=== PATIENT | male | born 1945 | race Caucasian/White ===

== ENCOUNTER 2019-09-19 09:49 | Observation (INO) | payer OTHER, SELFPAY ==
[2019-09-19] VITALS (15 sets, daily range): BP systolic 118–163; BP diastolic 69–100; PULSE 84–118; RESP 17–28; TEMP 36.6–37; O2SAT 86–94; BMI 28.0; BMI 27.3
--- NOTE | 2019-09-19 10:12 | EKG12_ITS ---
Test Reason : Blood Pressure : / mmHG Vent. Rate : 097 BPM Atrial Rate : 097 BPM P-R Int : 136 ms QRS Dur : 100 ms QT Int : 356 ms P-R-T Axes : 078 055 062 degrees QTc Int : 452 ms Normal sinus rhythm Incomplete right bundle branch block Borderline ECG Confirmed by JONH UREÑA, DOREEN ([id number]), purchase request editor CAROLYN POSEY ([id number]) on 09/22/2019 9:19:35 AM Referred By: [place] Confirmed By:DOREEN BORJA MD
--- NOTE | 2019-09-19 10:12 | RAD_ITS ---
STUDY: X-RAY CHEST REASON FOR EXAM: Male, 74 years old. increase SOB x several days, COPD -- dx with bronchitis, finished steroids last week TECHNIQUE: Single PA view of the chest. COMPARISON: 14 May 2013. FINDINGS: COPD related changes flattening the diaphragms with chronic interstitial markings along the lung bases. No evidence of focal airspace disease is evident. There is no demonstrated pleural abnormality. Normal size heart. Normal mediastinum and iesha. Normal visualized pulmonary arteries. Normal visualized aortic arch and descending thoracic aorta. Normal visualized thoracic spine. Normal visualized ribs, clavicles, and shoulders. There is no demonstrated abnormality of the visualized soft tissue structures of the upper abdomen. RAD/Chest 1 View (Portable) IMPRESSION: COPD related changes of chronic basilar interstitial markings. No distinct focal airspace disease is evident. Electronically Signed: Flip Hansen DO at 11:24 EDT , Service support ,
--- NOTE | 2019-09-19 10:18 | ED.DCSUM_ITS ---
- ER Visit Summary Date of Service: 09/19/19 Chief Complaint: Shortness of breath History of Present Illness: The patient is a 74 M who presents with shortness of breath that is been getting worse over the past 3 days. Patient states his breathing is worse with any exertion. Patient states that improves with rest and with an albuterol inhaler. Patient states he is having a cough with occasional clear sputum. Patient admits to some tightness in his chest. Patient states this is over the left side of his chest. Patient states he recently completed a course of doxycycline and prednisone which improved his symptoms but his symptoms have gotten worse since he finished the medications. Patient denies any fevers or chills. Patient denies any rhinorrhea or sore throat. Physical Examination: Vital signs are stable except for a tachycardia of 118 and a tachypnea of 28. Pulse oximeter was 86% on room air. Patient is afebrile. Patient is in no acute distress. Oral mucosa is pink and moist. Oropharynx is clear. Neck is supple. Trachea is midline. There is no JVD. Heart was regular and tachycardic. Lungs showed expiratory wheezing. There is good respiratory effort. There are no retractions. Abdomen is soft. Bowel sounds are normal. There is no tenderness. Extremities are intact. There is no calf tenderness or edema. Cranial nerves II through XII are intact. There are no focal motor or sensory deficits. Test Results: EKG showed normal sinus rhythm with a rate of 97. There are no acute ST or T wave changes. Portable chest x-ray shows COPD changes with chronic bibasilar markings. There is no acute cardiopulmonary process. CBC and comprehensive metabolic profile were normal. Troponin was normal. Lactate was normal. RSV and influenza swabs were obtained and were negative. Emergency Department Course and Treatment: Patient was placed on oxygen. Patient was given albuterol MDI. Patient was feeling better on reevaluation. Patient was given a dose of prednisone here. This was discussed with the hospitalist. Patient will be admitted to the hospital. Patient understood and was agreeable with the plan. All questions were answered. Disposition: Admit to hospital Impression: COPD exacerbation This note was generated with [employer] dictation software. It may contain incorrect words, spelling, and punctuation that were not noted in review of the chart prior to signing ED Disposition - Plan for ED Patient: Referrals: Finn Hahn MD [Primary Care Provider] -
[2019-09-19 10:27] LABS: Absolute Lymphocyte Count 2.15 X10^3/uL (0.83-4.51); Absolute Neutrophil Count 4.8 X10^3/uL (2.0-7.7); Basophil# 0.08 X10^3/uL; Basophil% 0.9 % (0-1); Eosinophil# 1.13 X10^3/uL; Eosinophils% 12.8 % (0-5); Hematocrit 49.3 % (40-54); Hemoglobin 16.2 g/dL (13.0-16.5); Lymphocyte # 2.15 X10^3/ul (4.0); Lymphocyte % 24.4 % (19-41); Mean Corp Hgb Conc 32.9 g/dL (32-36); Mean Corpuscular Hgb 31.2 pg (27.0-32.0); Mean Corpuscular Volume 94.8 fL (80-94); Mean Platelet Vol. 10.5 fl (6.2-12.0); Monocyte# 0.63 X10^3/uL; Monocyte% 7.1 % (0-10); NRBC Flagged by Analyzer 0 % (0-5); Neutrophil # 4.81 X10^3/uL (2.7-7.7); Neutrophil % 54.6 % (47-70); Platelet Count 197 K/mm3 (150-450); RBC Distribution Width CV 13.5 % (11.6-14.6); White Blood Count 8.8 K/mm3 (4.4-11.0)
[2019-09-19 10:48] LABS: ALB/GLOB Ratio 1.1 RATIO (0.9-2.4); AST(SGOT) 12 U/L (15-37); Alanine Aminotransfer ALT/SGPT 20 U/L (16-61); Albumin, Serum 3.9 g/dL (3.2-5.0); Alkaline Phosphatase 69 U/L (45-117); Anion Gap 5 (5-15); BUN 16 mg/dL (7-18); BUN/Creat Ratio 17.2 RATIO (10-20); Chloride 112 mmol/L (98-107); Creatinine, Serum 0.93 mg/dL (0.70-1.30); EST Glomerular Filtration Rate 85 mL/min (>60); Est Glom Filt Rate - Afr Amer 103 mL/min (>60); Estimated Creatinine Clearance 70.74 ml/min; Globulin 3.4 g/dL (2.2-4.2); Glucose 107 mg/dL (74-106); Potassium 3.8 mmol/L (3.5-5.1); Protein, Total 7.3 g/dL (6.4-8.2); Sodium Level 145 mmol/L (136-145)
[2019-09-19 11:03] LABS: Lactic Acid 1.1 mmol/L (0.4-1.9)
--- NOTE | 2019-09-19 11:42 | NURSING ---
DR MA FOR DR LOVELACE
--- NOTE | 2019-09-19 11:59 | NURSING ---
PCU OBS [facility] COPD EXAC
[2019-09-19] MEDS: predniSONE 20 MG Tablet 60 MG PO (12:02)
--- NOTE | 2019-09-19 13:02 | HP.PCM_ITS ---
Problem List (1) COPD (chronic obstructive pulmonary disease) Status: Chronic (2) BPH (benign prostatic hyperplasia) Status: Chronic (3) Hyperlipidemia Status: Chronic History of Present Illness Date of Admission: 09/19/19 Chief Complaint: Shortness of breath, weakness. The patient is a 74 year old M who presents to the emergency room due to shortness of breath and weakness. Patient states a few weeks ago him and his both had upper respiratory symptoms. He was treated with doxycycline and prednisone with improvement at that time. Patient then reports his symptoms cam e back on Saturday with shortness of breath, wheezing, productive cough with clear sputum. He denies fever, body aches. Patient states he was diagnosed with COPD by his primary care provider. He previously smoked for approximately 50 years. He has not had PFTs. Patient states he wears as needed oxygen at home for migraines. He has a past medical history of presumed COPD, hyperlipidemia, BPH, history of migraines, history of tobacco use, recent kidney stones with lithotripsy. Past Medical History Past Medical History (Chronic Problems): Chronic Problems COPD (chronic obstructive pulmonary disease) (Chronic) BPH (benign prostatic hyperplasia) (Chronic) Hyperlipidemia (Chronic) Allergies No Known Allergies Allergy (Verified 09/19/19 09:53) Home Medications: Ambulatory Orders Medication Instructions Recorded Albuterol Aerosols [Ventolin 2.5 mg INHALATION Q4H PRN PRN 09/19/19 Aerosols] Albuterol IH (ProAir) [Proair Hfa 2 puff INHALATION Q4H PRN PRN 09/19/19 (SP)Vent Pts] Atorvastatin Calcium [Lipitor] 40 mg PO QHS 09/19/19 Tamsulosin HCl 1 cap PO BID 09/19/19 Surgical History: - - Right total knee replacement, tonsillectomy, lipoma removal stomach, left shoulder surgery. Psychiatric History: No pertinent psych hx Lives: Spouse/ Significant Other Smoking Status: Former smoker - 14-gksx-oscc smoking history Alcohol: None Drugs: None - *Family History Maternal History Items: Heart Disease Paternal History Items: Heart Disease Review of Systems Constitutional: Denies: Chills, Fever, Weight Change HEENT: Denies: Head Aches, Sinus Congestion, Sinus Drainage Cardiovascular: Denies: Chest Pain, Palpitations Respiratory: Reports: Cough, Shortness of Breath, Wheezing Gastrointestinal: Denies: Abdominal Pain, Nausea, Vomiting Genitourinary: Denies: Dysuria Musculoskeletal: Denies: Joint Pain, Joint Tenderness Skin: Denies: Rash, Wounds Neurological: Denies: Numbness, Tingling, Focal weakness Psychiatric: Denies: Anxiety, Depression, Homicidal Ideations, Suicidal Ideations Hematologic/ Lymphatic: Denies: Easy Bruising, Easy Bleeding VTE Information - Inpt Only VTE Present on Admission: No VTE Mechan Device Prophylaxis: None VTE Pharm Prophylaxis ordered?: Yes - Physical Exam Vitals/I&O's: Vital Signs Temp Pulse Resp BP Pulse Ox 97.8 F 98 18 156/86 H 94 09/19/19 12:40 09/19/19 12:40 09/19/19 12:40 09/19/19 12:40 09/19/19 12:40 Oxygen Flow Rate (L/min) 2 Oxygen Delivery Method Nasal Cannula Weight: 184 lb 11.958 oz Body Mass Index (BMI) 27.3 General: Alert, Oriented x3, Cooperative HEENT: Atraumatic, PERRLA, EOMI, Normocephalic Oral: Dry Mucosa Neck: Supple, No JVD, Negative Carotid Bruits Lungs: Diminished, Wheezes Cardiovascular: Regular rate, Regular Rhythm, Normal S1, Normal S2, No murmurs Abdomen: Bowel Sounds Present, Soft, Non Tender, Non-Distended Extremities: No clubbing, No cyanosis, No edema, Capillary Refill Less than 3 Seconds Skin: No rashes, No breakdown Musculoskeletal: No Tenderness to Palpation of Joints or Extremities Neurological: Cranial nerves II-XII grossly intact, Neuro grossly intact Psych/Mental Status: Normal Affect, Appropriate Microbiology Past 72 Hours 09/19/19 10:25 Nasal Secretion Rapid RSV (DFA) - Final 09/19/19 10:25 Mucosa - Nose Influenza Types A,B Direct FA (ABHIJEET) - Final Laboratory Results 09/19/19 10:15: WBC 8.8, RBC 5.20, Hgb 16.2, Hct 49.3, MCV 94.8 H, MCH 31.2, MCHC 32.9, RDW Std Deviation 47.0 H, RDW Coeff of Ayala 13.5, Plt Count 197, MPV 10.5, Immature Gran % (Auto) 0.200, Neut % (Auto) 54.6, Lymph % (Auto) 24.4, [place] % (Auto) 7.1, Eos % (Auto) 12.8 H, Baso % (Auto) 0.9, Absolute Neuts (auto) 4.8, Absolute Lymphs (auto) 2.15, Nucleated RBC % 0 09/19/19 10:15: Sodium 145, Potassium 3.8, Chloride 112 H, Carbon Dioxide 28.0, Anion Gap 5, BUN 16, Creatinine 0.93, Estim Creat Clear Calc 70.74, Est GFR (MDRD) Af Amer 103, Est GFR (MDRD) Non-Af 85, BUN/Creatinine Ratio 17.2, Glucose 107 H, Calcium 9.0, Total Bilirubin 0.70, AST 12 L, ALT 20, Alkaline Phosphatase 69, Troponin I < 0.015, Total Protein 7.3, Albumin 3.9, Globulin 3.4, Albumin/Globulin Ratio 1.1 09/19/19 10:15: Lactic Acid 1.1 Current Medications Acetaminophen (Tylenol) 650 mg PO Q6H PRN PRN PRN Reason: Pain Score 1-10/Temp > 100.7 F Albuterol Sulfate (Ventolin Aerosols) 2.5 mg INHALATION Q2H PRN PRN PRN Reason: DYSPNEA Albuterol/Ipratropium (Duoneb) 3 ml INHALATION Q6H.RT [facility] Azithromycin (Zithromax) 500 mg PO Q24 [facility] Cyclobenzaprine HCl (Flexeril) 10 mg PO QHS [facility] Divalproex Sodium (Depakote Er) 500 mg PO DAILY [facility] Guaifenesin (Robitussin Dm) 10 ml PO Q6H PRN PRN PRN Reason: COUGH Heparin Sodium (Porcine) (Heparin Na) 5,000 unit SC Q12 [facility] Methylprednisolone (Solu-Medrol) 40 mg IV Q8 [facility] Non-Formulary Medication (Tamsulosin Hcl) 2 cap PO DAILY [facility] Sodium Chloride () 10 - 40 ml IV UD PRN PRN Reason: SALINE FLUSH Verapamil HCl (Calan) 80 mg PO TID [facility] Assessment/Plan 1. Acute exacerbation of COPD with acute hypoxic respiratory insufficiency- chest x-ray with chronic basilar interstitial markings. No acute process. Influenza and RSV negative. IV Solu-Medrol. Albuterol and DuoNeb aerosols. Oral azithromycin. Continue supplemental oxygen to maintain O2 at or above 90%. Walking pulse ox prior to discharge. Recommend follow-up with pulmonary medicine for formal evaluation for COPD including PFTs. 2. BPH-continue Flomax regimen. 3. Recent kidney stone status post lithotripsy 4. History of migraines-currently controlled without medicine. Patient reports he uses oxygen with a mask as needed for migraines. 5. Hyperlipidemia-continue statin regimen. DVT prophylaxis-Heparin subcu This patient was seen by YULIYA Soler under the supervision of Dr. Varela.
[2019-09-19] MEDS: Azithromycin 250 MG Tablet PO (13:19)
[2019-09-19] MEDS: 0.9% Saline Lock 10 ML Syringe IV ×2 (13:24→21:46)
[2019-09-19] MEDS: Tamsulosin HCl 0.4 MG Capsule PO (17:11)
[2019-09-19] MEDS: Ipratropium/Albuterol Sulfate 3 ML AMPUL.NEB INHALATION (19:11)
[2019-09-19] MEDS: Heparin Injection (Vial) 5,000 UNIT/ML VIAL 5000 UNIT SC (21:42)
[2019-09-20] VITALS (13 sets, daily range): BP systolic 119–133; BP diastolic 64–75; PULSE 82–108; RESP 18–20; TEMP 36.6–36.8; O2SAT 88–93
[2019-09-20] MEDS: Ipratropium/Albuterol Sulfate 3 ML AMPUL.NEB INHALATION ×4 (01:03→19:27)
[2019-09-20] MEDS: 0.9% Saline Lock 10 ML Syringe IV ×3 (06:05→21:25)
[2019-09-20] MEDS: Heparin Injection (Vial) 5,000 UNIT/ML VIAL 5000 UNIT SC ×2 (10:21→21:25)
[2019-09-20] MEDS: Azithromycin 250 MG Tablet 500 MG PO (10:21)
[2019-09-20] MEDS: Tamsulosin HCl 0.4 MG Capsule PO ×2 (10:21→18:42)
--- NOTE | 2019-09-20 12:05 | PN_ITS ---
Subjective: Patient seen and examined. Reports improvement in breathing, continues to have wheezing. Denies cough, fever, chills. - Physical Exam Vitals/I&O's: Vital Signs Temp Pulse Resp BP Pulse Ox 97.9 F 88 18 126/75 H 93 09/20/19 08:17 09/20/19 08:17 09/20/19 08:17 09/20/19 08:17 09/20/19 08:17 Oxygen Flow Rate (L/min) 2 Oxygen Delivery Method Nasal Cannula Weight: 184 lb 11.958 oz Body Mass Index (BMI) 27.3 Intake and Output for Last 24 Hours 09/18/19 09/19/19 09/20/19 23:59 23:59 23:59 Intake Total 370 / 1070 1000 / 1000 Balance 370 / 1070 1000 / 1000 General: Alert, Oriented x3, Cooperative HEENT: Atraumatic, PERRLA, EOMI, Normocephalic Neck: Supple, No JVD, Negative Carotid Bruits Lungs: Diminished, Wheezes Cardiovascular: Regular rate, Regular Rhythm, Normal S1, Normal S2, No murmurs Abdomen: Bowel Sounds Present, Soft, Non Tender, Non-Distended Extremities: No clubbing, No cyanosis, No edema, Capillary Refill Less than 3 Seconds Skin: No rashes, No breakdown Musculoskeletal: No Tenderness to Palpation of Joints or Extremities Neurological: Cranial nerves II-XII grossly intact, Neuro grossly intact Psych/Mental Status: Normal Affect, Appropriate Microbiology Past 72 Hours 09/19/19 10:25 Nasal Secretion Rapid RSV (DFA) - Final 09/19/19 10:25 Mucosa - Nose Influenza Types A,B Direct FA (ABHIJEET) - Final Current Medications Acetaminophen (Tylenol) 650 mg PO Q6H PRN PRN PRN Reason: Pain Score 1-10/Temp > 100.7 F Albuterol Sulfate (Ventolin Aerosols) 2.5 mg INHALATION Q2H PRN PRN PRN Reason: DYSPNEA Albuterol/Ipratropium (Duoneb) 3 ml INHALATION Q6H.RT [facility] Last Admin: 09/20/19 06:56 Dose: 3 ml Documented by: Azithromycin (Zithromax) 500 mg PO Q24 [facility] Last Admin: 09/20/19 10:21 Dose: 500 mg Documented by: Guaifenesin (Robitussin Dm) 10 ml PO Q6H PRN PRN PRN Reason: COUGH Heparin Sodium (Porcine) (Heparin Na) 5,000 unit SC Q12 [facility] Last Admin: 09/20/19 10:21 Dose: 5,000 unit Documented by: Methylprednisolone (Solu-Medrol) 40 mg IV Q8 [facility] Last Admin: 09/20/19 06:05 Dose: 40 mg Documented by: Sodium Chloride () 10 - 40 ml IV UD PRN PRN Reason: SALINE FLUSH Last Admin: 09/20/19 06:05 Dose: 10 ml Documented by: Tamsulosin HCl (Flomax) 0.4 mg PO BID@0830,1730 [facility] Last Admin: 09/20/19 10:21 Dose: 0.4 mg Documented by: Medical Necessity - Tobacco Use Smoking Status: Former smoker - [id number] smoking history Tobacco Use: Non-smoker Assessment/Plan 1. Acute exacerbation of COPD with acute hypoxic respiratory insufficiency- chest x-ray with chronic basilar interstitial markings. No acute process. Influenza and RSV negative. IV Solu-Medrol. Albuterol and DuoNeb aerosols. Oral azithromycin. Continue supplemental oxygen to maintain O2 at or above 90%. Walking pulse ox prior to discharge. Recommend follow-up with pulmonary medicine for formal evaluation for COPD including PFTs. 2. BPH-continue Flomax regimen. 3. Recent kidney stone status post lithotripsy 4. History of migraines-currently controlled without medicine. Patient reports he uses oxygen with a mask as needed for migraines. 5. Hyperlipidemia-continue statin regimen. DVT prophylaxis-Heparin subcu This patient was seen by YULIYA Soler under the supervision of Dr. Varela.
[2019-09-21 00:40] VITALS: PULSE 110; RESP 20
[2019-09-21] MEDS: Ipratropium/Albuterol Sulfate 3 ML AMPUL.NEB INHALATION ×2 (00:40→07:08)
[2019-09-21 00:42] VITALS: O2SAT 90
[2019-09-21 03:40] VITALS: BP 126/69; PULSE 112; RESP 18; TEMP 36.8; O2SAT 92
[2019-09-21] MEDS: 0.9% Saline Lock 10 ML Syringe IV (05:41)
[2019-09-21 07:08] VITALS: PULSE 91; RESP 16; O2SAT 91
[2019-09-21 07:46] VITALS: BP 140/81; PULSE 83; RESP 20; TEMP 36.6; O2SAT 91
--- NOTE | 2019-09-21 07:55 | RAD_ITS ---
STUDY: X-RAY CHEST REASON FOR EXAM: Male, 74 years old. SOB, COPD TECHNIQUE: Single AP portable view of the chest. COMPARISON: Comparison is made with prior study dated September 19, 2019. FINDINGS: Stable mild increased markings at the lung bases suggestive of either scarring and/or linear atelectasis. Stable blunting of both costophrenic angles. Normal size heart. Normal mediastinum and iesha. Normal visualized pulmonary arteries. There is atherosclerotic calcification of the aortic arch with tortuosity. There are diffuse degenerative changes of the visualized thoracic spine. The metallic pin is seen overlying the right humeral head in keeping with prior rotator cuff surgery. There is no demonstrated abnormality of the visualized soft tissue structures of the upper abdomen. RAD/Chest 1 View IMPRESSION: Stable examination demonstrating mild increased markings at the lung bases suggestive of either atelectasis and/or scarring with blunting of both costophrenic angles. Electronically Signed: Sal Rocha, at 8:13 EDT , Service support ,
[2019-09-21] MEDS: Tamsulosin HCl 0.4 MG Capsule PO (08:00)
--- NOTE | 2019-09-21 08:40 | NURSING ---
PT IS 92% ON 2L NC.
--- NOTE | 2019-09-21 09:53 | PCM.DC ---
- Discharge Diagnoses Current Active Problems: Current Active and Chronic Problems COPD (chronic obstructive pulmonary disease) (Chronic) BPH (benign prostatic hyperplasia) (Chronic) Hyperlipidemia (Chronic) You will use the following diet at home:: No restrictions Discharge Activity: Return to Normal Activity Call your doctor if you observe: Shortness of breath, Dizziness, Fainting spells, Chest pain Allergies/Adverse Reactions: Allergies No Known Allergies Allergy (Verified 09/19/19 09:53) Medications to take at Discharge Albuterol Aerosols [Ventolin Aerosols] 2.5 mg INHALATION Q4H PRN PRN 09/19/19 Albuterol IH (ProAir) [Proair Hfa] 2 puff INHALATION Q4H PRN PRN 09/19/19 Atorvastatin Calcium [Lipitor] 40 mg PO QHS 09/19/19 Tamsulosin HCl 1 cap PO BID 09/19/19 Azithromycin [Zithromax] 500 mg PO Q24 #4 tab 09/21/19 Prednisone See Taper PO DAILY #30 tab 09/21/19 The following prescriptions were given: Prednisone See Taper PO DAILY #30 tab Transmission Status: Pending to [facility] Azithromycin [Zithromax] 500 mg PO Q24 #4 tab Transmission Status: Pending to [facility] Primary Care Physician: Finn Hahn MD [Primary Care Provider] - Please follow up with your Primary Care Physician in: 1 Week Test Results: Test results from this visit will be discussed in further detail at your follow-up appointment, if applicable. Please Follow Up With: Mo Castrejon DO When: 2 Weeks, call to establish for COPD workup Proposed Discharge Date: 09/21/19
--- NOTE | 2019-09-21 09:59 | DS.PCM_ITS ---
Discharge Date and Diagnosis Date of Admission: 09/19/19 Date of Discharge: 09/21/19 - Primary Discharge Diagnosis 1. Acute exacerbation of COPD with acute hypoxic respiratory insufficiency 2. BPH 3. Recent kidney stone status post lithotripsy 4. History of migraines 5. Hyperlipidemia - Secondary Discharge Diagnosis Chronic Problems COPD (chronic obstructive pulmonary disease) (Chronic) BPH (benign prostatic hyperplasia) (Chronic) Hyperlipidemia (Chronic) Hospital Course and Treatment Imaging Results: Diagnostic Data Chest X-Ray 09/21/19 07:55 IMPRESSION: Stable examination demonstrating mild increased markings at the lung bases suggestive of either atelectasis and/or scarring with blunting of both costophrenic angles. Electronically Signed: Sal Rocha, at 8:13 EDT , Service support , Operations: None Procedures: None Summary of Care Provided: The patient is a 74 year old M admitted 09/19/2019 due to shortness of breath and weakness. 1. Acute exacerbation of COPD with acute hypoxic respiratory insufficiency- chest x-ray with chronic basilar interstitial markings. No acute process. Influenza and RSV negative. Continue course of azithromycin. Prednisone taper at discharge. Ambulatory pulse ox completed and patient will require supplemental oxygen at discharge. He is ambulatory in the home. Continue supplement oxygen to maintain O2 at or above 90%. Recommend follow-up with pulmonary medicine for formal evaluation for COPD including PFTs in 2 weeks. Follow-up with primary care physician in 1 week. 2. BPH-continue Flomax regimen. 3. Recent kidney stone status post lithotripsy 4. History of migraines-currently controlled without medicine. Patient reports he uses oxygen with a mask as needed for migraines. 5. Hyperlipidemia-continue statin regimen. General: Alert, Oriented x3, Cooperative HEENT: Atraumatic, PERRLA, EOMI, Normocephalic Neck: Supple, No JVD, Negative Carotid Bruits Lungs: Diminished, Wheezes Cardiovascular: Regular rate, Regular Rhythm, Normal S1, Normal S2, No murmurs Abdomen: Bowel Sounds Present, Soft, Non Tender, Non-Distended Extremities: No clubbing, No cyanosis, No edema, Capillary Refill Less than 3 Seconds Skin: No rashes, No breakdown Musculoskeletal: No Tenderness to Palpation of Joints or Extremities Neurological: Cranial nerves II-XII grossly intact, Neuro grossly intact Psych/Mental Status: Normal Affect, Appropriate Patient seen and examined prior to discharge. Physical assessment as noted above. Patient is stable for discharge with follow up recommendations as noted above. This patient was seen by YULIYA Soler under the supervision of Dr. Varela. - Physical Exam Vitals/I&O's: Vital Signs Temp Pulse Resp BP Pulse Ox 97.8 F 83 20 H 140/81 H 91 09/21/19 07:46 09/21/19 07:46 09/21/19 07:46 09/21/19 07:46 09/21/19 07:46 Oxygen Flow Rate (L/min) 4 Oxygen Delivery Method Nasal Cannula Weight: 184 lb 11.958 oz Body Mass Index (BMI) 27.3 Intake and Output for Last 24 Hours 09/19/19 09/20/19 09/21/19 23:59 23:59 23:59 Intake Total 370 / 1070 1840 / 1840 1480 / 1480 Balance 370 / 1070 1840 / 1840 1480 / 1480 Microbiology Past 72 Hours 09/19/19 10:15 Blood Culture (Wb) - Anticubital Left Blood Culture - Preliminary No growth in 48 hours. 09/19/19 10:25 Nasal Secretion Rapid RSV (DFA) - Final 09/19/19 10:25 Mucosa - Nose Influenza Types A,B Direct FA (ABHIJEET) - Final Current Medications Acetaminophen (Tylenol) 650 mg PO Q6H PRN PRN PRN Reason: Pain Score 1-10/Temp > 100.7 F Albuterol Sulfate (Ventolin Aerosols) 2.5 mg INHALATION Q2H PRN PRN PRN Reason: DYSPNEA Albuterol/Ipratropium (Duoneb) 3 ml INHALATION Q6H.RT [facility] Last Admin: 09/21/19 07:08 Dose: 3 ml Documented by: Azithromycin (Zithromax) 500 mg PO Q24 [facility] Last Admin: 09/20/19 10:21 Dose: 500 mg Documented by: Guaifenesin (Robitussin Dm) 10 ml PO Q6H PRN PRN PRN Reason: COUGH Heparin Sodium (Porcine) (Heparin Na) 5,000 unit SC Q12 [facility] Last Admin: 09/20/19 21:25 Dose: 5,000 unit Documented by: Methylprednisolone (Solu-Medrol) 40 mg IV Q8 [facility] Last Admin: 09/21/19 05:41 Dose: 40 mg Documented by: Sodium Chloride () 10 - 40 ml IV UD PRN PRN Reason: SALINE FLUSH Last Admin: 09/21/19 05:41 Dose: 20 ml Documented by: Tamsulosin HCl (Flomax) 0.4 mg PO BID@0830,1730 [facility] Last Admin: 09/21/19 08:00 Dose: 0.4 mg Documented by: Discharge Diet: No Restrictions Discharge Activity: Return to Normal Activity Call your doctor if you observe: Shortness of breath, Dizziness, Fainting spells, Chest pain Home Medications: Medications to take at Discharge Albuterol Aerosols [Ventolin Aerosols] 2.5 mg INHALATION Q4H PRN PRN 09/19/19 Albuterol IH (ProAir) [Proair Hfa] 2 puff INHALATION Q4H PRN PRN 09/19/19 Atorvastatin Calcium [Lipitor] 40 mg PO QHS 09/19/19 Tamsulosin HCl 1 cap PO BID 09/19/19 Azithromycin [Zithromax] 500 mg PO Q24 #4 tab 09/21/19 Prednisone See Taper PO DAILY #30 tab 09/21/19 Following Prescrptions Were Given to Patient: Prednisone See Taper PO DAILY #30 tab Transmission Status: Pending to [facility] #[facility] Azithromycin [Zithromax] 500 mg PO Q24 #4 tab Transmission Status: Pending to [facility] Primary Care Physician: Finn Hahn MD [Primary Care Provider] - Please follow up with your Primary Care Physician in: 1 Week Please Follow Up With: Mo Castrejon DO When: 2 Weeks, call to establish for COPD workup Disposition: Home Minutes spent on discharge:: 35 Patient Condition:: Stable Medical Necessity - Tobacco Use Smoking Status: Former smoker - [id number] smoking history Tobacco Use: Non-smoker Meaningful Use Info Meaningful Use Diagnoses (Choose all that apply): None applicable
[2019-09-21] MEDS: Azithromycin 250 MG Tablet 500 MG PO (10:07)
[2019-09-21] MEDS: Heparin Injection (Vial) 5,000 UNIT/ML VIAL 5000 UNIT SC (10:08)
--- NOTE | 2019-09-21 11:04 | CASEMGMT ---
Addendum entered by Helga Escamilla 09/21/19 13:34: Call to Angela at [facility] to notify that referral faxed previously and that pt to be discharged at this time. [facility] is having phone issues and Angela advised for this ERNIE LR to have pt call her cell phone directly at [phone] as soon as he arrives home. Pt updated at this time and gave pt Angela's number at this time with instruction to call as soon as pt arrives home, pt voices understanding at this time. Pt's here to pick pt up at this time. Mary KLEIN CM Addendum entered by Helga Escamilla 09/21/19 12:53: Per qualification testing, pt needs 2liters at rest and 6liters with ambulation at this time. Order faxed to [facility] at this time along with facesheet, testing, and d/c summary at this time. Mary KLEIN CM Original Note: Per pt, he does have a couple oxygen tanks thru [facility] at home for headaches. Call to Angela at [facility] and she states that pt has a sm/lg tank at home with an order for 10-15liters for 15minutes prn for cluster headaches. Pt does not have a concentrator at home at this time. Pt to be tested on room at rest and with ambulation and new order to be sent to [facility] when obtained. Mary KLEIN CM
[2019-09-21 11:40] VITALS: O2SAT 84; O2SAT 87; O2SAT 89
== END 2019-09-21 09:57 | disposition home or self-care (01) ==
LOC: ED 12:11 → PCU 12:15
PROVIDERS: Admitting Provider Internal Medicine; Emergency Provider Emergency Medicine; PCP Family Medicine; Visit Provider Internal Medicine
DX: J44.1 Chronic obstructive pulmonary disease with (acute) exacerbation (principal); R09.02 Hypoxemia; N40.0 Benign prostatic hyperplasia without lower urinary tract symptoms; E78.5 Hyperlipidemia, unspecified; Z87.891 Personal history of nicotine dependence; Z79.899 Other long term (current) drug therapy
CPT/HCPCS: 71045; 80053; 83605; 84484; 85025; 87040; 87804; 87807; 93005; 94640; 96372; 96374; 96376; 99218; 99251; 99284; A4216; G0378; G0463

== ENCOUNTER → 2019-11-19 07:52 | Outpatient (CLI) | payer OTHER, SELFPAY ==
[2019-09-19 12:42] VITALS: BMI 27.3
[2019-11-19 08:14] LABS: Absolute Lymphocyte Count 1.25 X10^3/uL (0.83-4.51); Absolute Neutrophil Count 6.3 X10^3/uL (2.0-7.7); Basophil# 0.06 X10^3/uL; Basophil% 0.7 % (0-1); Eosinophils% 8.8 % (0-5); Hemoglobin 15.1 g/dL (13.0-16.5); Lymphocyte # 1.25 X10^3/ul (4.0); Lymphocyte % 13.8 % (19-41); Mean Corp Hgb Conc 32.1 g/dL (32-36); Mean Corpuscular Hgb 30.1 pg (27.0-32.0); Mean Corpuscular Volume 93.6 fL (80-94); Mean Platelet Vol. 10.3 fl (6.2-12.0); Monocyte% 6.6 % (0-10); NRBC Flagged by Analyzer 0 % (0-5); Neutrophil # 6.34 X10^3/uL (2.7-7.7); Neutrophil % 69.7 % (47-70); Platelet Count 202 K/mm3 (150-450); RBC Distribution Width SD 44.5 fl (35.1-43.9); Red Blood Count 5.02 M/mm3 (4.6-6.2); White Blood Count 9.1 K/mm3 (4.4-11.0)
[2019-11-21 03:06] LABS: Cytoplasmic Ab (C-ANCA) <1:20 titer (Neg:<1:20)
[2019-11-23 00:23] LABS: Immunoglobulin E 20 IU/mL (6-495); Perinuclear Ab (P-ANCA) <1:20 titer (Neg:<1:20)
[2019-11-23 03:06] LABS: Alternaria tenuis <0.10 kU/L (Class 0); Ash, White <0.10 kU/L (Class 0); Aspergillus fumigatus <0.10 kU/L (Class 0); Bermuda Grass <0.10 kU/L (Class 0); Birch <0.10 kU/L (Class 0); Black Walnut <0.10 kU/L (Class 0); Cat Hair / Dander,Stand <0.10 kU/L (Class 0); Cedar, Mountain <0.10 kU/L (Class 0); Cladosporium herbarum <0.10 kU/L (Class 0); Cockroach, American <0.10 kU/L (Class 0); Cottonwood <0.10 kU/L (Class 0); D farinae Mite <0.10 kU/L (Class 0); D pteronyssinus <0.10 kU/L (Class 0); Dog Epithelia <0.10 kU/L (Class 0); Elm, American White <0.10 kU/L (Class 0); Immunoglobulin E 22 IU/mL (6-495); Maple/Box Elder <0.10 kU/L (Class 0); Mulberry, White <0.10 kU/L (Class 0); Oak, White <0.10 kU/L (Class 0); Pecan <0.10 kU/L (Class 0); Penicillium Notatum <0.10 kU/L (Class 0); Pigweed, Rough <0.10 kU/L (Class 0); Ragweed, Short/Common <0.10 kU/L (Class 0); Russian Thistle <0.10 kU/L (Class 0); Sheep Sorrel <0.10 kU/L (Class 0); Sycamore, American <0.10 kU/L (Class 0); Timothy Grass <0.10 kU/L (Class 0)
[2019-11-23 04:44] LABS: Mouse Urine <0.10 kU/L (Class 0)
== END ==
PROVIDERS: PCP Family Medicine; Visit Provider Internal Medicine Critical Care Medicine
DX: J44.9 Chronic obstructive pulmonary disease, unspecified (principal)
CPT/HCPCS: 36415; 82785; 85025; 86003; 86256

== ENCOUNTER → 2019-11-23 06:41 | Outpatient (CLI) | payer OTHER, SELFPAY ==
[2019-09-19 12:42] VITALS: BMI 27.3
--- NOTE | 2019-11-23 12:37 | PFT ---
INTRODUCTION: The patient is a 74-year-old male that presents for pulmonary function studies secondary to a diagnosis of COPD. Respiratory therapy reports good patient effort. Bronchodilators were used during testing. INTERPRETATION: Forced expiration spirometry demonstrates the presence of a severe large airways obstructive ventilatory defect. There was a significant response to aerosolized bronchodilators noted. Spirograms are of good quality and do not plateau indicating slow emptying of the lungs. Body plethysmography was performed and reveals lung volumes to be within normal limits. Diffusing capacity by single breath CO is reduced at 56% of predicted. IMPRESSION: Partially reversible severe large airways obstructive ventilatory defect with symmetric reduction in diffusing capacity.
== END ==
PROVIDERS: PCP Family Medicine; Referring Provider Internal Medicine Critical Care Medicine; Visit Provider Internal Medicine Critical Care Medicine
DX: J44.9 Chronic obstructive pulmonary disease, unspecified (principal)
CPT/HCPCS: 94060; 94726; 94729

== ENCOUNTER → 2019-11-26 08:18 | Outpatient (CLI) | payer OTHER, SELFPAY ==
[2019-09-19 12:42] VITALS: BMI 27.3
[2019-11-26 09:04] VITALS: PULSE 106; PULSE 107; PULSE 109; PULSE 110; PULSE 114; PULSE 90; O2SAT 85; O2SAT 87; O2SAT 89; O2SAT 90; O2SAT 94
--- NOTE | 2019-11-26 09:07 | CPS ---
Patient came in on room air but states that he does have oxygen at home that he mostly wears at night. Patient SpO2 87% room air at rest. Placed patient on 2 lpm O2, SpO2 89-90%, turned O2 up to 3 lpm. Starting SpO2 92% at rest on 3 lpm O2. By the 2nd minute patient SpO2 85% on 3 lpm, turned O2 up to 4 lpm, patient recovered to 92% and performed the rest of the walk on 4 lpm O2.
--- NOTE | 2019-11-27 09:36 | PCM.PSN.6M ---
PSN 6 Minute Walk Test - 6 Minute Walk Test 6 Minute Walk Test: 6 Minute Walk Test PSN:6-Minute Walk Test Start: 11/26/19 09:04 Freq: Status: Active Protocol: RESP.6MINW Document 11/26/19 09:04 CASSIUS (Rec: 11/26/19 09:13 CASSIUS [id number]) 6 Minute Walk Test Date Performed 11/26/19 Time Performed 08:30 Height 5 ft 9 in Weight: 185 lb Weight in Pounds 185.[address]: Mo Castrejon Assistive device used: None Pre-test Oxygen Delivery Method Room Air Pulse Ox (%) 87 Pulse Rate (60-100 beats/min) 90 Dyspnea Caden Scale (0-10) 0 Exertion Caden Scale (6-20) 6 1st minute Oxygen Flow Rate (L/min) (L/min) 3 Oxygen Delivery Method Nasal Cannula Pulse Ox (%) 89 Pulse Rate (60-100 beats/min) 110 H 2nd minute Oxygen Flow Rate (L/min) (L/min) 3 Oxygen Delivery Method Nasal Cannula Pulse Ox (%) 85 Pulse Rate (60-100 beats/min) 106 H 3rd minute Oxygen Flow Rate (L/min) (L/min) 4 Oxygen Delivery Method Nasal Cannula Pulse Ox (%) 90 Pulse Rate (60-100 beats/min) 109 H 4th minute Oxygen Flow Rate (L/min) (L/min) 4 Oxygen Delivery Method Nasal Cannula Pulse Ox (%) 89 Pulse Rate (60-100 beats/min) 109 H 5th minute Oxygen Flow Rate (L/min) (L/min) 4 Oxygen Delivery Method Nasal Cannula Pulse Ox (%) 89 Pulse Rate (60-100 beats/min) 107 H 6th minute Oxygen Flow Rate (L/min) (L/min) 4 Oxygen Delivery Method Nasal Cannula Pulse Ox (%) 89 Pulse Rate (60-100 beats/min) 114 H Dyspnea Caden Scale (0-10) 3 Exertion Caden Scale (6-20) 13 Post-test Oxygen Flow Rate (L/min) (L/min) 4 Oxygen Delivery Method Nasal Cannula Pulse Ox (%) 94 Pulse Rate (60-100 beats/min) 90 Full Laps Walked 13 Partial Lap, Number of Tiles Walked 35 Total Distance Walked (ft) 802 11/26/19 09:07 Cardiopulmonary Services by Claire Bergeron Patient came in on room air but states that he does have oxygen at home that he mostly wears at night. Patient SpO2 87% room air at rest. Placed patient on 2 lpm O2, SpO2 89-90%, turned O2 up to 3 lpm. Starting SpO2 92% at rest on 3 lpm O2. By the 2nd minute patient SpO2 85% on 3 lpm, turned O2 up to 4 lpm, patient recovered to 92% and performed the rest of the walk on 4 lpm O2. Initialized on 11/26/19 09:07 - END OF NOTE - Interpretation Interpretation: The patient ambulated 802 feet over the course of 6 minutes beginning on room air without assistive devices or breaks. Pretesting oxygen saturation was noted to be 87% on room air. The patient was placed on 2 L/min of supplemental oxygen for testing purposes. With ambulation, the suzan oxygen saturation was 85%, requiring an escalation in his supplemental oxygen flow rate to 4 L/min to maintain appropriate oxygen saturations. - Recommendations Recommendations: 2 L/min of supplemental oxygen should be utilized at rest. 4 L/min is required with exertion.
== END ==
PROVIDERS: PCP Family Medicine; Referring Provider Internal Medicine Critical Care Medicine; Visit Provider Internal Medicine Critical Care Medicine
DX: J44.9 Chronic obstructive pulmonary disease, unspecified (principal)
CPT/HCPCS: 94618

== ENCOUNTER → 2019-11-27 07:47 | Outpatient (CLI) | payer OTHER, SELFPAY ==
[2019-09-19 12:42] VITALS: BMI 27.3
--- NOTE | 2019-11-27 07:48 | CT_ITS ---
STUDY: LOW DOSE CT LUNG CANCER SCREENING REASON FOR EXAM: Male, 74 years old. LUNG SCREEN, NON-SMOKER X 1 1/2 YRS, SMOKER X 55 YRS-1 PPD, COPD RADIATION DOSAGE (If Supplied By Facility): CTDIvol = ( 2.55 ) mGy, DLP = ( 86.46 ) mGycm TECHNIQUE: No contrast was administered. Low dose technique was utilized (average mAS-38 and kVp 120). 1.25 mm axial source images with a slice interval of 1.25-mm were reconstructed in lung windows. 2.5 mm axial source images with a slice interval of 2.5-mm were reconstructed in lung windows. 5.0 mm axial source images with a slice interval of 5.0-mm were reconstructed in soft tissue windows. Nodule measured using lung windows on PACS and/or independent workstation with automated measurement of minimum and maximum diameter. Nodule measurement reported as average diameter rounded to the nearest whole number. Growth is defined as an increase ins size of greater than 1.5 mm. COMPARISON: None. NODULES: No suspicious nodules are seen. Emphysema: Diffuse emphysematous changes more prominent in the upper lobes. Focal linear density in the anterior aspect of the right upper lobe suggestive of linear scarring. Increased linear markings are also seen in the medial aspect of the right upper lobe with the findings suggestive of bronchiectasis. A similar appearance is also seen in the medial aspect of the left upper lobe. There is also evidence of increased linear markings with areas of confluence in the lingular segment of the left upper lobe suggestive of scarring. Hyperinflation. Endobronchial lesion: None Aorta: Atherosclerotic plaques are seen at the level of the aortic arch. Coronary arteries: Coronary artery calcification. Heart: Moderate size anterior pericardial effusion. Minimal pericardial thickening posteriorly. Pulmonary artery: Unremarkable Mediastinal nodes: Small benign-appearing mediastinal lymph nodes. Other chest and abdominal findings: Degenerative changes of the visualized dorsal spine. CT/Low Dose CT Lung Screening IMPRESSION: Lung-RADS category 2 - Continue annual screening with LDCT in 12 months. IMPORTANT NOTES FOR USE: ACR Lung-RADS Version 1.0 Assessment Categories Release Date: October 19, 2013 Category: Coded 0-4 bases on nodule(s) with highest degree of suspicion. Negative screen is defined as categories 1 and 2; a positive screen is defined as categories 3 and 4. Category 3 and 4A nodules that are unchanged on interval CT should be coded as category 2, and individuals returned to screening in 12 months. Category 4X: Category 3 or 4 nodules with additional imaging findings that increase the suspicion of lung cancer, such as spiculation, GGN that doubles in size in 1 year, enlarged lymph notes, etc. Category Modifiers: S (significant finding unrelated to lung cancer) and C (prior history of treated lung cancer) may be added to the 0-4 Lung-RADS Electronically Signed: Sal Rocha, at 9:44 EDT , Service support ,
== END ==
PROVIDERS: PCP Family Medicine; Referring Provider Internal Medicine Critical Care Medicine; Visit Provider Internal Medicine Critical Care Medicine
DX: F17.211 Nicotine dependence, cigarettes, in remission (principal)
CPT/HCPCS: G0297

== ENCOUNTER → 2020-06-20 17:23 | Outpatient (CLI) | payer OTHER, SELFPAY ==
[2020-04-26 09:42] VITALS: BMI 29.2
== END ==
PROVIDERS: PCP Family Medicine; Referring Provider Nurse Practitioner Acute Care; Visit Provider Nurse Practitioner Acute Care
DX: R06.02 Shortness of breath (principal)
CPT/HCPCS: 87633; 87635; C9803; U0003

== ENCOUNTER → 2020-07-13 10:45 | Outpatient (CLI) | payer OTHER, SELFPAY ==
[2020-07-13 10:58] LABS: Absolute Lymphocyte Count 1.82 X10^3/uL (0.83-4.51); Absolute Neutrophil Count 6.3 X10^3/uL (2.0-7.7); Basophil# 0.06 X10^3/uL; Basophil% 0.6 % (0-1); Eosinophil# 0.87 X10^3/uL; Hematocrit 47.5 % (40-54); Hemoglobin 15.8 g/dL (13.0-16.5); Lymphocyte # 1.82 X10^3/ul (4.0); Lymphocyte % 18.8 % (19-41); Mean Corp Hgb Conc 33.3 g/dL (32-36); Mean Corpuscular Hgb 30.3 pg (27.0-32.0); Mean Platelet Vol. 10.3 fl (6.2-12.0); Monocyte# 0.59 X10^3/uL; Monocyte% 6.1 % (0-10); NRBC Flagged by Analyzer 0 % (0-5); Neutrophil # 6.34 X10^3/uL (2.7-7.7); Neutrophil % 65.4 % (47-70); Platelet Count 201 K/mm3 (150-450); RBC Distribution Width CV 12.8 % (11.6-14.6); Red Blood Count 5.22 M/mm3 (4.6-6.2); White Blood Count 9.7 K/mm3 (4.4-11.0)
== END ==
PROVIDERS: PCP Family Medicine; Referring Provider Nurse Practitioner Acute Care; Visit Provider Nurse Practitioner Acute Care
DX: J44.9 Chronic obstructive pulmonary disease, unspecified (principal)
CPT/HCPCS: 36415; 85025

== ENCOUNTER 2020-08-29 09:47 | Outpatient (CLI) | payer OTHER, SELFPAY ==
[2020-07-28 10:25] VITALS: BMI 29.2
[2020-08-29 10:05] VITALS: BP 151/86; PULSE 87; RESP 16; TEMP 36.3; O2SAT 94; BMI 28.8
[2020-08-29] MEDS: Benralizumab 30 MG/ML Syringe SQ (10:08)
[2020-08-29 11:10] VITALS: BP 148/79; PULSE 72; RESP 16; TEMP 36.3
== END 2020-08-29 13:54 | disposition home or self-care (01) ==
LOC: MEDOUTP 09:47
PROVIDERS: PCP Family Medicine; Referring Provider Nurse Practitioner Acute Care; Visit Provider Nurse Practitioner Acute Care
DX: J45.50 Severe persistent asthma, uncomplicated (principal)
CPT/HCPCS: 96372; J0517

== ENCOUNTER 2020-09-26 10:21 | Outpatient (CLI) | payer OTHER, SELFPAY ==
[2020-07-28 10:25] VITALS: BMI 29.2
[2020-09-26 10:32] VITALS: BP 157/86; PULSE 86; RESP 18; TEMP 36.6; O2SAT 92; BMI 28.8
[2020-09-26] MEDS: Benralizumab 30 MG/ML Syringe SC (10:43)
== END 2020-09-26 13:00 | disposition home or self-care (01) ==
LOC: MEDOUTP 10:22
PROVIDERS: PCP Family Medicine; Referring Provider Nurse Practitioner Acute Care; Visit Provider Nurse Practitioner Acute Care
DX: J45.50 Severe persistent asthma, uncomplicated (principal)
CPT/HCPCS: 96372; J0517

== ENCOUNTER → 2020-10-24 10:24 | Outpatient (CLI) | payer OTHER, SELFPAY ==
[2020-10-04 08:12] VITALS: BMI 28.3
[2020-10-24 10:35] VITALS: BP 141/84; PULSE 83; RESP 16; TEMP 36.8; O2SAT 93; BMI 28.3
[2020-10-24] MEDS: Benralizumab 30 MG/ML Syringe SC (10:41)
== END ==
PROVIDERS: PCP Family Medicine; Referring Provider Nurse Practitioner Acute Care; Visit Provider Nurse Practitioner Acute Care
DX: J45.50 Severe persistent asthma, uncomplicated (principal)
CPT/HCPCS: 96372; J0517

== ENCOUNTER → 2020-12-02 08:23 | Outpatient (CLI) | payer MEDICARE, OTHER, SELFPAY ==
[2020-11-01 06:29] VITALS: BMI 28.5
--- NOTE | 2020-12-02 08:27 | CT_ITS ---
STUDY: LOW DOSE CT LUNG CANCER SCREENING REASON FOR EXAM: Male, 75 years old. Smoker and gt; 100 pack years. Patient stopped smoking 2 years ago. RADIATION DOSAGE (If Supplied By Facility): CTDIvol = ( 3.02 ) mGy, DLP = ( 102.69 ) mGycm TECHNIQUE: No contrast was administered. Low dose technique was utilized (average mAS-38 and kVp 120). 1.25 mm axial source images with a slice interval of 1.25-mm were reconstructed in lung windows. 2.5 mm axial source images with a slice interval of 2.5-mm were reconstructed in lung windows. 5.0 mm axial source images with a slice interval of 5.0-mm were reconstructed in soft tissue windows. Nodule measured using lung windows on PACS and/or independent workstation with automated measurement of minimum and maximum diameter. Nodule measurement reported as average diameter rounded to the nearest whole number. Growth is defined as an increase ins size of greater than 1.5 mm. COMPARISON: Comparison is made with prior examination dated 11/27/2019. NODULES: No suspicious nodules are seen. Emphysema: Hyperinflation. Emphysematous changes more pronounced in the upper lobes. Stable increased linear markings in the medial aspect of the right upper lobe suggestive of scarring. Increased linear markings are also seen in the medial aspect of the left upper lobe. There is evidence of loss of volume with some atelectasis in the posterior aspect of the lingular segment of the left upper lobe abutting the left major fissure. This has progressed as compared to prior study. Endobronchial lesion: None Aorta: Atherosclerotic calcification of the aortic arch. Coronary arteries: Coronary artery calcification. Heart: Mild degree of thickening of the pericardium in keeping with a small pericardial effusion. This has improved as compared to prior study. Pulmonary artery: Unremarkable Mediastinal nodes: Small benign-appearing mediastinal lymph nodes. Other chest and abdominal findings: CT/Low Dose CT Lung Screening IMPRESSION: Lung-RADS category 2 - Continue annual screening with LDCT in 12 months. IMPORTANT NOTES FOR USE: ACR Lung-RADS Version 1.1 Assessment Categories Release Date: 2018 Category: Coded 0-4 bases on nodule(s) with highest degree of suspicion. Negative screen is defined as categories 1 and 2; a positive screen is defined as categories 3 and 4. Category 3 and 4A nodules that are unchanged on interval CT should be coded as category 2, and individuals returned to screening in 12 months. Category 4X: Category 3 or 4 nodules with additional imaging findings that increase the suspicion of lung cancer, such as spiculation, GGN that doubles in size in 1 year, enlarged lymph notes, etc. Category Modifiers: S (significant finding unrelated to lung cancer) Electronically Signed: Sal Rocha MD at 9:26 EDT , Service support ,
== END ==
PROVIDERS: PCP Family Medicine; Referring Provider Nurse Practitioner Acute Care; Visit Provider Nurse Practitioner Acute Care
DX: F17.210 Nicotine dependence, cigarettes, uncomplicated (principal)
CPT/HCPCS: 71271

== ENCOUNTER → 2020-12-19 10:16 | Outpatient (CLI) | payer MEDICARE, OTHER, SELFPAY ==
[2020-10-04 08:12] VITALS: BMI 28.3
[2020-11-01 06:29] VITALS: BMI 28.5
[2020-12-19 10:23] VITALS: BP 150/76; PULSE 91; RESP 18; TEMP 36.8; O2SAT 96; BMI 28.1
[2020-12-19] MEDS: Benralizumab 30 MG/ML Syringe SC (10:41)
== END ==
PROVIDERS: PCP Family Medicine; Referring Provider Nurse Practitioner Acute Care; Visit Provider Nurse Practitioner Acute Care
DX: J45.50 Severe persistent asthma, uncomplicated (principal)
CPT/HCPCS: 96372; J0517

== ENCOUNTER → 2021-02-13 10:20 | Outpatient (CLI) | payer MEDICARE, OTHER, SELFPAY ==
[2020-11-01 06:29] VITALS: BMI 28.5
[2021-02-13 10:59] VITALS: BP 135/76; PULSE 70; TEMP 36.8; O2SAT 94; BMI 28.5
[2021-02-13] MEDS: Benralizumab 30 MG/ML Syringe SC (11:07)
--- NOTE | 2021-02-13 11:10 | ONC ---
SQ injection left arm. tolerated well, bandaid applied.
[2021-02-13 11:46] VITALS: BP 129/73; PULSE 64; RESP 16; TEMP 36.8; O2SAT 95
--- NOTE | 2021-02-13 11:47 | ONC ---
no s/s of reaction noted post injection. DC to home.
== END ==
PROVIDERS: PCP Family Medicine; Referring Provider Nurse Practitioner Acute Care; Visit Provider Nurse Practitioner Acute Care
DX: J45.50 Severe persistent asthma, uncomplicated (principal)
CPT/HCPCS: 96372; J0517

== ENCOUNTER → 2021-03-20 12:07 | Outpatient (CLI) | payer MEDICARE, OTHER, SELFPAY ==
[2021-03-20 12:47] VITALS: PULSE 102; PULSE 105; PULSE 106; PULSE 112; PULSE 83; PULSE 87; PULSE 97; O2SAT 87; O2SAT 89; O2SAT 90; O2SAT 91; O2SAT 92; O2SAT 93; O2SAT 95
--- NOTE | 2021-03-20 15:13 | PCM.PSN.6M ---
PSN 6 Minute Walk Test 6 Minute Walk Test 6 Minute Walk Test: 6 Minute Walk Test PSN:6-Minute Walk Test Start: 03/20/21 12:46 Freq: Status: Active Protocol: RESP.6MINW Document 03/20/21 12:47 CASSIUS (Rec: 03/20/21 12:49 CASSIUS [id number]) 6 Minute Walk Test Date Performed 03/20/21 Time Performed 12:30 Height 5 ft 8 in Weight: 87.09 kg Weight in Pounds 192.[address]: Mo Castrejon Assistive device used: None Pre-test Oxygen Delivery Method Room Air Pulse Ox (%) 92 Pulse Rate (60-100 beats/min) 83 Dyspnea Caden Scale (0-10) 0 Exertion Caden Scale (6-20) 6 1st minute Oxygen Delivery Method Room Air Pulse Ox (%) 90 Pulse Rate (60-100 beats/min) 97 2nd minute Oxygen Delivery Method Room Air Pulse Ox (%) 89 Pulse Rate (60-100 beats/min) 102 H 3rd minute Oxygen Delivery Method Room Air Pulse Ox (%) 87 Pulse Rate (60-100 beats/min) 112 H 4th minute Oxygen Flow Rate (L/min) (L/min) 2 Oxygen Delivery Method Nasal Cannula Pulse Ox (%) 93 Pulse Rate (60-100 beats/min) 106 H 5th minute Oxygen Flow Rate (L/min) (L/min) 2 Oxygen Delivery Method Nasal Cannula Pulse Ox (%) 91 Pulse Rate (60-100 beats/min) 105 H 6th minute Oxygen Flow Rate (L/min) (L/min) 2 Oxygen Delivery Method Nasal Cannula Pulse Ox (%) 91 Pulse Rate (60-100 beats/min) 106 H Dyspnea Caden Scale (0-10) 1 Exertion Caden Scale (6-20) 12 Post-test Oxygen Flow Rate (L/min) (L/min) 2 Oxygen Delivery Method Nasal Cannula Pulse Ox (%) 95 Pulse Rate (60-100 beats/min) 87 Full Laps Walked 15 Partial Lap, Number of Tiles Walked 20 Total Distance Walked (ft) 905 Interpretation Interpretation: The patient was noted to be 92% on room air at rest. The patient did desaturate to 87% in the third minute requiring 2 L nasal cannula. Saturations improved to 93% and the patient was able to tolerate ambulation for the remaining time. In total, the patient traveled 905 minutes over the course of 6 minutes with no assistive devices and one break. The patient did have some reflexive tachycardia as high as 112 bpm. These findings are consistent with a respiratory limitation exercise tolerance. Recommendations Recommendations: The patient requires no supplemental oxygen at rest, but should be using 2 L nasal cannula with any exertion.
== END ==
PROVIDERS: PCP Family Medicine; Referring Provider Nurse Practitioner Acute Care; Visit Provider Nurse Practitioner Acute Care
DX: J44.9 Chronic obstructive pulmonary disease, unspecified (principal)
CPT/HCPCS: 94618

== ENCOUNTER → 2021-04-10 10:11 | Outpatient (CLI) | payer MEDICARE, OTHER, SELFPAY ==
[2021-04-10 10:17] VITALS: BP 141/78; PULSE 92; RESP 16; TEMP 35.8; O2SAT 97
[2021-04-10] MEDS: Benralizumab 30 MG/ML Syringe SC (10:19)
== END ==
PROVIDERS: PCP Family Medicine; Referring Provider Nurse Practitioner Acute Care; Visit Provider Nurse Practitioner Acute Care
DX: J45.50 Severe persistent asthma, uncomplicated (principal)
CPT/HCPCS: 96372; J0517

== ENCOUNTER → 2021-06-05 10:16 | Outpatient (CLI) | payer MEDICARE, OTHER, SELFPAY ==
[2021-06-05 11:02] VITALS: BP 154/71; PULSE 96; TEMP 37.1; O2SAT 94; BMI 28.3
[2021-06-05] MEDS: Benralizumab 30 MG/ML Syringe SC (11:10)
[2021-06-05 11:13] VITALS: BMI 28.3
== END ==
PROVIDERS: PCP Family Medicine; Referring Provider Nurse Practitioner Acute Care; Visit Provider Nurse Practitioner Acute Care
DX: J45.50 Severe persistent asthma, uncomplicated (principal)
CPT/HCPCS: 96372; J0517

== ENCOUNTER 2021-07-31 10:27 | Outpatient (CLI) | payer MEDICARE, OTHER, SELFPAY ==
[2021-07-31 10:32] VITALS: BP 136/77; PULSE 86; RESP 16; O2SAT 95
[2021-07-31] MEDS: Benralizumab 30 MG/ML Syringe SC (10:35)
== END 2021-07-31 23:59 | disposition home or self-care (01) ==
LOC: MEDOUTP 10:29
PROVIDERS: PCP Family Medicine; Referring Provider Nurse Practitioner Acute Care; Visit Provider Nurse Practitioner Acute Care
DX: J45.50 Severe persistent asthma, uncomplicated (principal)
CPT/HCPCS: 96372; J0517

== ENCOUNTER 2021-09-22 10:17 | Outpatient (CLI) | payer MEDICARE, OTHER, SELFPAY ==
[2021-09-22 10:30] VITALS: BP 133/67; PULSE 95; RESP 18; TEMP 36.7; O2SAT 94
[2021-09-22] MEDS: Benralizumab 30 MG/ML Syringe SC (10:32)
[2021-09-22 11:05] VITALS: BP 126/72; PULSE 90
== END 2021-09-22 23:59 | disposition home or self-care (01) ==
LOC: MEDOUTP 10:17
PROVIDERS: PCP Family Medicine; Referring Provider Nurse Practitioner Acute Care; Visit Provider Nurse Practitioner Acute Care
DX: J45.50 Severe persistent asthma, uncomplicated (principal)
CPT/HCPCS: 96372; J0517

== ENCOUNTER → 2021-11-17 | Outpatient (CLI) | payer MEDICARE, OTHER, SELFPAY ==
[2021-11-17 10:31] VITALS: BP 120/74; PULSE 90; RESP 16; TEMP 36.8; O2SAT 95
[2021-11-17] MEDS: Benralizumab 30 MG/ML Syringe SC (10:47)
--- NOTE | 2021-11-17 10:51 | ONC ---
SQ injection left arm, tolerated well
== END | disposition home or self-care (01) ==
LOC: MEDOUTP 10:13
PROVIDERS: PCP Family Medicine; Referring Provider Nurse Practitioner Acute Care; Visit Provider Nurse Practitioner Acute Care
DX: J45.50 Severe persistent asthma, uncomplicated (principal)
CPT/HCPCS: 96372; J0517

== ENCOUNTER → 2021-12-04 | Outpatient (CLI) | payer MEDICARE, OTHER, SELFPAY ==
--- NOTE | 2021-12-04 08:24 | CT_ITS ---
STUDY: LOW DOSE CT LUNG CANCER SCREENING REASON FOR EXAM: Male, 76 years old. h/o Tobacco dependency. Patient smoked one half pack per day for 63 years. RADIATION DOSAGE (If Supplied By Facility): CTDIvol = ( 3.02 ) mGy, DLP = ( 105.71 ) mGycm TECHNIQUE: No contrast was administered. Low dose technique was utilized (average mAS-38 and kVp 120). 1.25 mm axial source images with a slice interval of 1.25-mm were reconstructed in lung windows. 2.5 mm axial source images with a slice interval of 2.5-mm were reconstructed in lung windows. 5.0 mm axial source images with a slice interval of 5.0-mm were reconstructed in soft tissue windows. COMPARISON: Comparison is made with prior study dated 12/02/2020. NODULES: No suspicious nodules are seen. Emphysema: Hyperinflation. Emphysematous changes with evidence of centrilobular findings more prominent in the upper lobes. Mild increased linear markings in the anterior aspect of the right upper lobe suggestive of scarring. Mild degree of bronchiectasis. This is unchanged. There is also evidence of scarring in the anterior aspect of the right middle lobe as well as in the anterior aspect of the lingular segment of the left upper lobe. Stable increased linear markings with confluence and volume loss in the posterior aspect of the lingular segment of the left upper lobe with areas of breath bronchiectasis. Endobronchial lesion: None Aorta: Atherosclerotic plaques of the aortic arch. CORONARY ARTERIES: Coronary artery calcification is seen. Heart: Unremarkable Pulmonary artery: Unremarkable Mediastinal nodes: Small mediastinal lymph nodes. Other chest and abdominal findings: CT/Low Dose CT Lung Screening IMPRESSION: Lung-RADS category 2 - Continue annual screening with LDCT in 12 months. IMPORTANT NOTES FOR USE: ACR Lung-RADS Version 1.1 Assessment Categories Release Date: 2018 Category: Coded 0-4 bases on nodule(s) with highest degree of suspicion. Negative screen is defined as categories 1 and 2; a positive screen is defined as categories 3 and 4. Category 3 and 4A nodules that are unchanged on interval CT should be coded as category 2, and individuals returned to screening in 12 months. Category 4X: Category 3 or 4 nodules with additional imaging findings that increase the suspicion of lung cancer, such as spiculation, GGN that doubles in size in 1 year, enlarged lymph notes, etc. Category Modifiers: S (significant finding unrelated to lung cancer) Electronically Signed: Sal Rocha MD at 12:49 EDT ,
== END | disposition home or self-care (01) ==
PROVIDERS: PCP Family Medicine; Referring Provider Internal Medicine Critical Care Medicine; Visit Provider Internal Medicine Critical Care Medicine
DX: Z12.2 Encounter for screening for malignant neoplasm of respiratory organs (principal); F17.210 Nicotine dependence, cigarettes, uncomplicated
CPT/HCPCS: 71271

== ENCOUNTER → 2022-01-12 | Outpatient (CLI) | payer MEDICARE, OTHER, SELFPAY ==
[2022-01-12 10:17] VITALS: BP 145/85; PULSE 84; RESP 16; TEMP 37; O2SAT 95; BMI 28.4
[2022-01-12] MEDS: Benralizumab 30 MG/ML Syringe SC (10:26)
== END | disposition home or self-care (01) ==
LOC: MEDOUTP 10:04
PROVIDERS: PCP Family Medicine; Referring Provider Nurse Practitioner Acute Care; Visit Provider Nurse Practitioner Acute Care
DX: J45.50 Severe persistent asthma, uncomplicated (principal)
CPT/HCPCS: 96372; J0517

== ENCOUNTER → 2022-02-07 | Outpatient (CLI) | payer MEDICARE, OTHER, SELFPAY ==
--- NOTE | 2022-02-07 12:55 | STRESSREP_ITS ---
Stress Test Report Date: 02-07-2022 Procedure: Exercise tolerance test Indications: Chest pain Consent: Per the patient Procedure: The patient exercised on a Medardo protocol for 4 minutes completing stage I and 1 minute of Stage II achieving a peak heart rate of 141 bpm (97% predicted maximal heart rate) with a peak blood pressure 180/90 mmHg and a peak MET capacity of approximately 7 MET's. The baseline ECG demonstrated normal sinus rhythm; right bundle branch block pattern. The peak exercise ECG demonstrated no obvious ECG changes. There was an isolated PVC during exercise. The functional capacity was considered fair. The patient had no complaint of chest discomfort during exercise or recovery. The examination was discontinued secondary to dyspnea. Impression: 1. Technically adequate (percent predicted maximal heart rate greater than 85%) exercise tolerance test 2. Peak exercise ECG with continued right bundle branch block pattern with no obvious ECG changes 3. There was an isolated PVC during exercise This note was generated with [employer] software. It may contain incorrect words, spelling, and punctuation that were not noted in checking the note before signing.
== END | disposition home or self-care (01) ==
LOC: CVS 10:03
PROVIDERS: PCP Family Medicine; Referring Provider Physician Assistant; Visit Provider Physician Assistant
DX: R07.9 Chest pain, unspecified (principal)
CPT/HCPCS: 93017

== ENCOUNTER → 2022-03-09 | Outpatient (CLI) | payer MEDICARE, OTHER, SELFPAY ==
[2022-03-09 10:36] VITALS: BP 147/80; PULSE 82; RESP 16; TEMP 35.9; O2SAT 96; BMI 28.5
[2022-03-09] MEDS: Benralizumab 30 MG/ML Syringe SC (10:39)
== END | disposition home or self-care (01) ==
LOC: MEDOUTP 10:19
PROVIDERS: PCP Family Medicine; Referring Provider Nurse Practitioner Acute Care; Visit Provider Nurse Practitioner Acute Care
DX: J45.50 Severe persistent asthma, uncomplicated (principal)
CPT/HCPCS: 96372; J0517

== ENCOUNTER → 2022-05-04 | Outpatient (CLI) | payer MEDICARE, OTHER, SELFPAY ==
[2022-05-04 10:39] VITALS: BP 130/73; PULSE 89; RESP 16; TEMP 36.3; BMI 27.6
[2022-05-04] MEDS: Benralizumab 30 MG/ML Syringe SC (10:44)
== END | disposition home or self-care (01) ==
LOC: MEDOUTP 10:25
PROVIDERS: PCP Family Medicine; Referring Provider Nurse Practitioner Acute Care; Visit Provider Nurse Practitioner Acute Care
DX: J45.50 Severe persistent asthma, uncomplicated (principal)
CPT/HCPCS: 96372; J0517

== ENCOUNTER → 2022-06-29 | Outpatient (CLI) | payer MEDICARE, OTHER, SELFPAY ==
[2022-06-29 10:39] VITALS: BP 149/80; PULSE 92; RESP 14; TEMP 36.2; O2SAT 92; BMI 28.7
[2022-06-29] MEDS: Benralizumab 30 MG/ML Syringe SC (11:02)
== END | disposition home or self-care (01) ==
LOC: MEDOUTP 10:23
PROVIDERS: PCP Family Medicine; Referring Provider Nurse Practitioner Acute Care; Visit Provider Nurse Practitioner Acute Care
DX: J45.50 Severe persistent asthma, uncomplicated (principal)
CPT/HCPCS: 96372; J0517

== ENCOUNTER → 2022-07-31 | Outpatient (CLI) | payer MEDICARE, OTHER, SELFPAY ==
--- NOTE | 2022-07-31 17:30 | MRI_ITS ---
MR Prostate WO/W Contrast 07/31/2022 5:29 PM COMPARISON: None CLINICAL HISTORY: 77-year-old male with known prostate cancer. No PSA level provided. TECHNIQUE: Standard prostate MR protocol was used before and after administration of 17cc of IV Clariscan. FINDINGS: Prostate volume: 16 cc PSA density: PSA level not provided Length of membranous urethra: 19 mm Post-biopsy hemorrhage: None Multiparametric MR evaluation: There is atrophy of the central gland. Lesion 1: 2 x 1.2 x 1.2 cm moderately T2 hypointense lesion in the right medial anterior peripheral zone from near apex to near base. It is moderately bright on DWI and very dark on ADC map. T2 - 5 DWI - 5 DCE - positive Overall PI-RADS v2 score = 5 Lesion 2: 0.7 x 0.7 x 0.5 cm markedly T2 hypointense round focal lesion in the right lateral peripheral zone between mid gland and near base. It is mildly right on DWI and moderately dark on ADC map. T2 - 4 DWI - 4 DCE - inconclusive Overall PI-RADS v2 score = 4 Capsular margin and neurovascular bundle: Questionable 4 mm macro capsular extension anteriorly at mid gland. Seminal vesicles: Questionable invasion of the right seminal vesicle. Lymph nodes: No lymphadenopathy in the field of view. Bones: No suspicious lesions in the field of view. MRI/Pelvis W/WO Contrast IMPRESSION: - 2 cm PI-RADS 5 lesion in the right medial anterior PZ from near apex to near base with questionable 4 mm macro capsular extension anteriorly at mid gland and questionable right seminal vesicle invasion. - 0.7 cm PI-RADS 4 lesion in the right lateral PZ between mid gland and near base. - No lymphadenopathy. - No suspicious bone lesions. Electronically Signed: Mj Figueroa MD at 23:18 EST ,
[2022-07-31 17:35] LABS: CREATININE FINGERSTICK < 0.9 mg/dL (0.70-1.30); EGFR FINGERSTICK > 60.0000 mL/min (>60)
== END | disposition home or self-care (01) ==
LOC: MRI 16:54
PROVIDERS: PCP Family Medicine; Visit Provider Urology
DX: C61 Malignant neoplasm of prostate (principal)
CPT/HCPCS: 72197; A9575

== ENCOUNTER → 2022-08-24 | Outpatient (CLI) | payer MEDICARE, OTHER, SELFPAY ==
[2022-08-24 10:29] VITALS: BP 157/69; PULSE 96; RESP 16; TEMP 36.3; O2SAT 93; BMI 27.8
[2022-08-24] MEDS: Benralizumab 30 MG/ML Syringe SC (10:35)
== END | disposition home or self-care (01) ==
LOC: MEDOUTP 10:22
PROVIDERS: PCP Family Medicine; Referring Provider Nurse Practitioner Acute Care; Visit Provider Nurse Practitioner Acute Care
DX: J45.50 Severe persistent asthma, uncomplicated (principal)
CPT/HCPCS: 96372; J0517

== ENCOUNTER 2022-10-19 10:28 | Outpatient (CLI) | payer MEDICARE, OTHER, SELFPAY ==
[2022-10-19 10:33] VITALS: BP 136/89; PULSE 85; RESP 16; O2SAT 93; BMI 28.1
[2022-10-19] MEDS: Benralizumab 30 MG/ML Syringe SC (10:36)
== END 2022-10-19 10:29 | disposition home or self-care (01) ==
LOC: MEDOUTP 10:28
PROVIDERS: PCP Family Medicine; Referring Provider Nurse Practitioner Acute Care; Visit Provider Nurse Practitioner Acute Care
DX: J45.50 Severe persistent asthma, uncomplicated (principal)
CPT/HCPCS: 96372; J0517

== ENCOUNTER → 2022-12-06 | Outpatient (CLI) | payer MEDICARE, OTHER, SELFPAY ==
--- NOTE | 2022-12-06 07:53 | CT_ITS ---
STUDY: LOW DOSE CT LUNG CANCER SCREENING REASON FOR EXAM: Male, 77 years old. H/o tobacco dependency. Patient smoked 2 packs per day for 54 years. RADIATION DOSAGE (If Supplied By Facility): CTDIvol = ( 3.02 ) mGy, DLP = ( 103.07 ) mGycm TECHNIQUE: No contrast was administered. Low dose technique was utilized (average mAS-38 and kVp 120). 1.25 mm axial source images with a slice interval of 1.25-mm were reconstructed in lung windows. 2.5 mm axial source images with a slice interval of 2.5-mm were reconstructed in lung windows. 5.0 mm axial source images with a slice interval of 5.0-mm were reconstructed in soft tissue windows. COMPARISON: Comparison is made with prior study dated December 04, 2021. NODULES: No suspicious nodules are seen. Emphysema: Hyperinflation. Emphysematous changes more pronounced in the upper lobes. Stable mild scarring in the anterior medial aspect of the right upper lobe with focal area of bronchiectasis. Stable mild scarring in the anterior medial aspect of the right middle lobe as well as in the anterior aspect of the lingular segment of the left upper lobe. Stable scarring and mild volume loss in the posterior aspect of the lingular segment of the left upper lobe. Endobronchial lesion: Unremarkable Aorta: Calcific plaques seen at the level of the aortic arch. CORONARY ARTERIES: Coronary artery calcification is seen. Heart: Unremarkable Pulmonary artery: Unremarkable Mediastinal nodes: Small benign appearing mediastinal lymph nodes. Other chest and abdominal findings: CT/Low Dose CT Lung Screening IMPRESSION: Lung-RADS category 2 - Continue annual screening with LDCT in 12 months. IMPORTANT NOTES FOR USE: ACR Lung-RADS Version 1.1 Assessment Categories Release Date: 2018 Category: Coded 0-4 bases on nodule(s) with highest degree of suspicion. Negative screen is defined as categories 1 and 2; a positive screen is defined as categories 3 and 4. Category 3 and 4A nodules that are unchanged on interval CT should be coded as category 2, and individuals returned to screening in 12 months. Category 4X: Category 3 or 4 nodules with additional imaging findings that increase the suspicion of lung cancer, such as spiculation, GGN that doubles in size in 1 year, enlarged lymph notes, etc. Category Modifiers: S (significant finding unrelated to lung cancer) Electronically Signed: Sal Rocha MD at 15:18 EDT ,
== END | disposition home or self-care (01) ==
LOC: CT 07:52
PROVIDERS: PCP Family Medicine; Referring Provider Internal Medicine Critical Care Medicine; Visit Provider Internal Medicine Critical Care Medicine
DX: Z12.2 Encounter for screening for malignant neoplasm of respiratory organs (principal); F17.211 Nicotine dependence, cigarettes, in remission
CPT/HCPCS: 71271

== ENCOUNTER 2022-12-14 10:16 | Outpatient (CLI) | payer MEDICARE, OTHER, SELFPAY ==
[2022-12-14 10:26] VITALS: BP 129/75; PULSE 76; RESP 16; TEMP 36.2; O2SAT 93
[2022-12-14] MEDS: Benralizumab 30 MG/ML Syringe SC (10:30)
== END 2022-12-14 10:17 | disposition home or self-care (01) ==
LOC: MEDOUTP 10:16
PROVIDERS: PCP Family Medicine; Referring Provider Nurse Practitioner Acute Care; Visit Provider Nurse Practitioner Acute Care
DX: J45.50 Severe persistent asthma, uncomplicated (principal)
CPT/HCPCS: 96372; J0517

== ENCOUNTER 2023-02-08 10:21 | Outpatient (CLI) | payer MEDICARE, OTHER, SELFPAY ==
[2023-02-08 10:42] VITALS: BP 134/77; PULSE 84; RESP 16; TEMP 36.8; O2SAT 95; BMI 25.4
[2023-02-08] MEDS: Benralizumab 30 MG/ML Syringe SC (10:53)
== END 2023-02-08 10:22 | disposition home or self-care (01) ==
LOC: MEDOUTP 10:21
PROVIDERS: PCP Family Medicine; Referring Provider Nurse Practitioner Acute Care; Visit Provider Nurse Practitioner Acute Care
DX: J45.50 Severe persistent asthma, uncomplicated (principal)
CPT/HCPCS: 96372; J0517

== ENCOUNTER 2023-04-05 10:24 | Outpatient (CLI) | payer MEDICARE, OTHER, SELFPAY ==
[2023-04-05] MEDS: Benralizumab 30 MG/ML Syringe SC (10:39)
[2023-04-05 10:42] VITALS: BP 159/80; PULSE 82; RESP 18; TEMP 36.5; O2SAT 94; BMI 25.1
== END 2023-04-05 10:25 | disposition home or self-care (01) ==
LOC: MEDOUTP 10:24
PROVIDERS: PCP Family Medicine; Referring Provider Nurse Practitioner Acute Care; Visit Provider Nurse Practitioner Acute Care
DX: J45.50 Severe persistent asthma, uncomplicated (principal)
CPT/HCPCS: 96372; J0517

== ENCOUNTER 2023-05-31 10:22 | Outpatient (CLI) | payer MEDICARE, OTHER, SELFPAY ==
[2023-05-31 10:28] VITALS: BP 151/82; PULSE 98; RESP 16; TEMP 36.5; O2SAT 96; BMI 25.2
[2023-05-31] MEDS: Benralizumab 30 MG/ML Syringe SC (10:31)
== END 2023-05-31 10:23 | disposition home or self-care (01) ==
LOC: MEDOUTP 10:22
PROVIDERS: PCP Family Medicine; Referring Provider Nurse Practitioner Acute Care; Visit Provider Nurse Practitioner Acute Care
DX: J45.50 Severe persistent asthma, uncomplicated (principal)
CPT/HCPCS: 96372; J0517

== ENCOUNTER 2023-07-26 10:23 | Outpatient (CLI) | payer MEDICARE, OTHER, SELFPAY ==
[2023-07-26 10:47] VITALS: BP 147/84; PULSE 83; RESP 16; TEMP 36.6; O2SAT 95; BMI 25.8
[2023-07-26] MEDS: Benralizumab 30 MG/ML Syringe SC (10:51)
--- OUTSIDE RECORDS SUMMARY | 2023-07-26 13:19 | XMS RPT_ITS | CCD ---
Author Name Unknown Address [address] [place] [address] Organization [facility] Care Team Providers Care Raiser Helper Name Role Phone Rhonda Hahn MD Primary Care Provider [phone] Eve Daniel PA-C Primary Care Provider [phone] Eve DANIEL Attending Unavailable RHONDA HAHN Primary Care Unavailable RODRIGUEZ ISAAC Referring Unavailable RHONDA HAHN Primary Care Unavailable Eve DANIEL Attending Unavailable RHONDA HAHN Primary Care Unavailable ACRLOS CANTRELL Referring Unavail able RHONDA HAHN Primary Care Unavailable CARLOS CANTRELL Referring Unavail able Eve DANIEL Primary Care Unavailable Eve DANIEL Attending Unavailable Eve DANIEL Primary Care Unavailable Eve DANIEL Referring Unavailable RHONDA HAHN Primary Care Unavailable RHONDA HAHN Primary Care Unavailable RIKKI WATSON Attending Unavailabl RIKKI Varela Admitting Unavailabl e RHONDA HAHN Primary Care Unavailable Eve DANIEL Primary Care Unavailable CARLOS CANTRELL Attending Unavail able RIKKI WATSON Attending Unavailabl e RHONDA HAHN Primary Care Unavailable CARLOS CANTRELL Referring Unavail able RHONDA HAHN Primary Care Unavailable CARLOS CANTRELL Referring Unavail able CARLOS CANTRELL Attending Unavail able Medications Current Medications Medication Drug Class(es) Dates Sig (Normalized) Sig (Original) fluticasone propionate 0.05 mg/actuat metered dose nasal spray (9 sources) Corticosteroid Start: 08-07-2022 End: 08-07-2023 take 2 spray(s) by mouth once daily fluticasone (FLONASE) 50 mcg/actuation nasal spray Use 2 Sprays in each nostril once daily. Rinse mouth after use. 3 Each 3 08/07/2022 08/07/2023 Active Completed/Discontinued Medications Medication Drug Class(es) Dates Sig (Normalized) Sig (Original) [id number] 200 actuat albuterol 0.09 mg/actuat metered dose inhaler (20 sources) beta2-Adrenergic Agonist Start: 09-07-2019 take 2 puff(s) by inhalation every four hours as needed for cough albuterol HFA (PROAIR HFA) 90 mcg/actuation inhaler Indications: Bronchitis Inhale 2 Puffs as instructed every 4 hours as needed (FOR COUGH OR WHEEZE). 3 Inhaler 1 09/07/2019 Active Problems Active Problems Problem Classification Problem Date Documented Da te Episodic/Chronic Cancer of prostate (20 sources) Carcinoma of prostate; Translations: [Malignant neoplasm of prostate] Onset: 08-04-2021 08-04-2021 Chronic Cardiac dysrhythmias (18 sources) Atrial arrhythmia; Translations: [Cardiac arrhythmia, unspecified] Onset: 07-12-2016 07-12-2016 Chronic Chronic obstructive pulmonary disease and bronchiectasis (20 sources) Chronic obstructive lung disease; Translations: [Chronic obstructive pulmonary disease, unspecified] Onset: 08-31-2009 Chronic Disorders of lipid metabolism (20 sources) Hyperlipidemia; Translations: [Hyperlipidemia, unspecified] Onset: 01-08-2012 01-08-2012 Chronic Essential hypertension (20 sources) Essential hypertension; Translations: [Essential (primary) hypertension] Onset: 04-28-2021 Chronic Headache; including migraine (20 sources) Migraine; Translations: [Migraine, unspecified, not intractable, without status migrainosus] Onset: 01-08-2012 01-08-2012 Chronic Hyperplasia of prostate (16 sources) Benign prostatic hyperplasia; Translations: [Benign prostatic hyperplasia without lower urinary tract symptoms] Onset: 01-08-2012 04-25-2017 Chronic Nonspecific chest pain (1 source) Chest pain; Translations: [Chest pain, unspecified] Episodic Osteoarthritis (16 sources) Arthritis of joint of left shoulder region; Translations: [Primary osteoarthritis, left shoulder] Onset: 04-25-2016 06-20-2021 Chronic Other male genital disorders (16 sources) Male erectile dysfunction, unspecified; Translations: [Impotence of organic origin] Onset: 01-08-2012 01-08-2012 Chronic Other skin disorders (1 source) Rash of genitalia; Translations: [Rash and other nonspecific skin eruption] Episodic Other upper respiratory disease (16 sources) Allergic rhinitis; Translations: [Allergic rhinitis, unspecified] Onset: 01-08-2012 01-08-2012 Chronic Viral infection (1 source) COVID-19; Translations: [Other specified viral infection] Episodic Past or Other Problems Problem Classification Problem Date Documented Da te Episodic/Chronic Allergic reactions (16 sources) Solar degeneration; Translations: [Other skin changes due to chronic exposure to nonionizing radiation] Onset: 09-13-2009 09-03-2013 Episodic Genitourinary symptoms and ill-defined conditions (20 sources) Nocturia; Translations: [Nocturia] Onset: 09-15-2013 09-15-2013 Episodic Other and unspecified benign neoplasm (16 sources) Lipoma of skin and subcutaneous tissue; Translations: [Benign lipomatous neoplasm of skin and subcutaneous tissue of unspecified sites] Onset: 09-13-2009 09-03-2013 Episodic Other and unspecified benign neoplasm (16 sources) Angiolipoma; Translations: [Benign lipomatous neoplasm, unspecified] Onset: 09-13-2009 09-03-2013 Episodic Other diseases of kidney and ureters (1 source) Other obstructive and reflux uropathy; Translations: [BPH with obstruction/lower urinary tract symptoms] Onset: 09-18-2022 Episodic Other lower respiratory disease (1 source) Other disorders of lung; Translations: [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)] Onset: 04-02-2018 Episodic Other non-epithelial cancer of skin (16 sources) History of malignant neoplasm of skin; Translations: [Personal history of other malignant neoplasm of skin] Onset: 08-06-2006 09-03-2013 Episodic Other screening for suspected conditions (not mental disorders or infectious disease) (16 sources) Raised prostate specific antigen; Translations: [Elevated prostate specific antigen [PSA]] Onset: 09-15-2013 09-15-2013 Episodic Other skin disorders (17 sources) Actinic keratosis; Translations: [Actinic keratosis] Onset: 09-13-2009 09-03-2013 Episodic Other skin disorders (16 sources) Seborrheic keratosis; Translations: [Other seborrheic keratosis] Onset: 09-13-2009 09-03-2013 Episodic Other skin disorders (16 sources) Solar lentigo; Translations: [Other melanin hyperpigmentation] Onset: 09-13-2009 09-03-2013 Episodic Other skin disorders (1 source) Rash and other nonspecific skin eruption; Translations: [Rash of penis] Onset: 10-26-2022 Episodic Screening and history of mental health and substance abuse codes (16 sources) Tobacco use and exposure - finding; Translations: [Personal history of nicotine dependence] Onset: 01-19-2014 01-19-2014 Episodic Spondylosis; intervertebral disc disorders; other back problems (19 sources) Spinal stenosis of lumbar region; Translations: [Spinal stenosis, lumbar region without neurogenic claudication] Onset: 03-06-2008 09-03-2013 Episodic Results Test Name Value Interpretation Reference Range Facil ity Vital Signs Date Time Vital Sign Value Performing Clinician Faci lity 04-12-2023 08:08-0400 Body height 172.7 cm Carlos Cantrell MD Work Phone: [facility] 04-12-2023 08:08-0400 Body weight 77.56 kg Carlos Cantrell MD Work Phone: [facility] 04-12-2023 08:08-0400 Diastolic blood pressure 84 mm[Hg] Carlos Cantrell MD Work Phone: [facility] 04-12-2023 08:08-0400 Systolic blood pressure 142 mm[Hg] Carlos Cantrell MD Work Phone: [facility] 02-05-2023 09:59-0400 Body weight 78.02 kg NA Daniel PA-C Work Phone: [facility] 02-05-2023 09:59-0400 Diastolic blood pressure 72 mm[Hg] NA Daniel PA-C Work Phone: [facility] 02-05-2023 09:59-0400 Heart rate 82 /min NA Daniel PA-C Work Phone: [facility] 02-05-2023 09:59-0400 Respiratory rate 16 /min NA Daniel PA-C Work Phone: [facility] 02-05-2023 09:59-0400 SaO2% (BldA) [Mass fraction] 95 % NA Daniel PA-C Work Phone: [facility] 02-05-2023 09:59-0400 Systolic blood pressure 128 mm[Hg] NA Daniel PA-C Work Phone: [facility] 11-21-2022 17:08-0400 Body temperature 100.4 [degF] Tony Dubose MD Work Phone: [facility] 11-21-2022 17:08-0400 Body weight 79.38 kg Tony Dubose MD Work Phone: [facility] 11-21-2022 17:08-0400 Diastolic blood pressure 70 mm[Hg] Tony Dubose MD Work Phone: [facility] 11-21-2022 17:08-0400 Heart rate 104 /min Tony Dubose MD Work Phone: [facility] 11-21-2022 17:08-0400 Respiratory rate 18 /min Tony Dubose MD Work Phone: [facility] 11-21-2022 17:08-0400 SaO2% (BldA) [Mass fraction] 93 % Tony Dubose MD Work Phone: [facility] 11-21-2022 17:08-0400 Systolic blood pressure 122 mm[Hg] Tony Dubose MD Work Phone: [facility] 10-26-2022 14:15-0400 Body weight 79.83 kg NA Daniel PA-C Work Phone: [facility] 10-26-2022 14:15-0400 Diastolic blood pressure 66 mm[Hg] NA Daniel PA-C Work Phone: [facility] 10-26-2022 14:15-0400 Heart rate 85 /min NA Daniel PA-C Work Phone: [facility] 10-26-2022 14:15-0400 SaO2% (BldA) [Mass fraction] 95 % NA Daniel PA-C Work Phone: [facility] 10-26-2022 14:15-0400 Systolic blood pressure 114 mm[Hg] NA Daniel PA-C Work Phone: [facility] 08-07-2022 09:44-0500 Body weight 82.56 kg NA Daniel PA-C Work Phone: [facility] 08-07-2022 09:44-0500 Diastolic blood pressure 74 mm[Hg] NA Daniel PA-C Work Phone: [facility] 08-07-2022 09:44-0500 Heart rate 107 /min NA Daniel PA-C Work Phone: [facility] 08-07-2022 09:44-0500 Respiratory rate 18 /min NA Daniel PA-C Work Phone: [facility] 08-07-2022 09:44-0500 SaO2% (BldA) [Mass fraction] 93 % NA Daniel PA-C Work Phone: [facility] 08-07-2022 09:44-0500 Systolic blood pressure 132 mm[Hg] NA Daniel PA-C Work Phone: [facility] 02-01-2022 09:21-0400 Body weight 82.56 kg NA Daniel PA-C Work Phone: [facility] 02-01-2022 09:21-0400 Diastolic blood pressure 76 mm[Hg] NA Daniel PA-C Work Phone: [facility] 02-01-2022 09:21-0400 Heart rate 89 /min NA Daniel PA-C Work Phone: [facility] 02-01-2022 09:21-0400 Respiratory rate 16 /min NA Daniel PA-C Work Phone: [facility] 02-01-2022 09:21-0400 SaO2% (BldA) [Mass fraction] 96 % NA Daniel PA-C Work Phone: [facility] 02-01-2022 09:21-0400 Systolic blood pressure 130 mm[Hg] NA Daniel PA-C Work Phone: [facility] 01-22-2022 14:18-0400 Body height 172.7 cm Carlos Cantrell MD Work Phone: [facility] 01-22-2022 14:18-0400 Body weight 85.73 kg Carlos Cantrell MD Work Phone: [facility] 01-22-2022 14:18-0400 Diastolic blood pressure 78 mm[Hg] Carlos Cantrell MD Work Phone: [facility] 01-22-2022 14:18-0400 Systolic blood pressure 122 mm[Hg] Carlos Cantrell MD Work Phone: [facility] Encounters Encounter Date Encounter Type Care Provider Facility Start: 04-12-2023 End: 04-12-2023 ambulatory M NICOLAS DANIEL Facility:[facility] Start: 04-12-2023 End: 04-12-2023 Patient encounter procedure Carlos Cantrell MD Work Phone: [facility] Procedures Date Procedure Procedure Detail Performing Clinician Start: 02-01-2022 Ecg routine ecg w/le ast 12 lds w/i&r [facility] Provider Start: 02-01-2022 Adult depression scr eening assessment MECCA Daniel PA-C Work Phone: Start: 01-22-2022 Urnls dip stick/tabl et rgnt auto w/o microscopy Carlos Cantrell MD Work Phone: Start: 01-22-2021 Adult depression scr eening assessment Rhonda Hahn MD Work Phone: Start: 10-04-2014 Colonoscopy Rhonda Neal MD Work Phone: Plan of Treatment Date Care Activity Detail Author Start: 03-06-2033 Urine microalbumin profile DTa P,Tdap,Td Vaccine (2 - Td or Tdap) [facility] Start: 01-08-2027 LIPID SCREEN LIPID SCREEN [facility] Start: 01-27-2026 LIPID SCREEN LIPID SCREEN [facility] Start: 01-24-2026 DIABETES SCREEN DIABETES SCREEN [facility] Start: 01-24-2026 Diabetes Screening Diabetes Screenin g [facility] Start: 07-18-2025 DIABETES SCREEN DIABETES SCREEN [facility] Start: 10-04-2024 Colonoscopy COLONOSCOPY [facility] Start: 10-04-2024 COLORECTAL CANCER SCREENING COLORECTAL CANCER SCREENING [facility] Start: 05-04-2024 DIABETES SCREEN DIABETES SCREEN [facility] Start: 02-06-2024 ANNUAL PCP TEAM INVENTORY WORKER LALO DISEASE VISIT ANNUAL PCP TEAM CHRONIC DISEASE VISIT [facility] Start: 02-06-2024 BP CONTROLLED (<130/80) BP CONTROLLE D (<130/80) [facility] Start: 02-06-2024 COVID-19 VACCINE (6 - Moderna series) COVID-19 VACCINE (6 - Moderna series) [facility] Immunizations Immunization Date Immunization Notes Care Provider Fa annty 03-20-2022 influenza (aIIV4) vaccine, age 65+ yr, quadrivalent, PF (FLUAD QUAD) NA Fredy MOORE Work Phone: [facility] 03-07-2021 influenza, high-dose , quadrivalent vaccine (FLUZONE HIGH DOSE QUADRIVALENT) Rhonda Hahn MD Work Phone: [facility] 04-12-2020 pneumococcal conjuga te vaccine, 13 valent Rhonda Hahn MD Work Phone: [facility] 03-22-2020 zoster vaccine recombinant Rhonda Hahn MD Work Phone: [facility] 03-02-2020 influenza, high dose seasonal, preservative-free Rhonda Hahn MD Work Phone: [facility] 12-24-2019 zoster vaccine recombinant Rhonda Hahn MD Work Phone: [facility] 03-08-2019 influenza, high dose seasonal, preservative-free Rhonda Hahn MD Work Phone: [facility] 03-09-2018 influenza, high dose seasonal, preservative-free Rhonda Hahn MD Work Phone: [facility] 03-20-2016 influenza, high dose seasonal, preservative-free Rhonda Hahn MD Work Phone: [facility] Work Phone: 03-27-2015 influenza, high dose seasonal, preservative-free Rhonda Hahn MD Work Phone: [facility] 04-08-2014 influenza, seasonal, injectable Rhonda Hahn MD Work Phone: [facility] Work Phone: 07-02-2013 tetanus and diphther ia toxoids, adsorbed, preservative free, for adult use (2 Lf of tetanus toxoid and 2 Lf of diphtheria toxoid) Rhonda Hahn MD Work Phone: [facility] 04-04-2013 influenza virus vacc ine, unspecified formulation Rhonda Hahn MD Work Phone: [facility] 04-12-2012 influenza virus vacc ine, unspecified formulation Rhonda Hahn MD Work Phone: [facility] Work Phone: 01-08-2012 pneumococcal polysaccharide vaccine, 23 valent Rhonda Hahn MD Work Phone: [facility] 03-24-2011 influenza virus vacc ine, unspecified formulation Rhonda Hahn MD Work Phone: [facility] Work Phone: 04-29-2010 influenza virus vacc ine, unspecified formulation Rhonda Hahn MD Work Phone: [facility] Work Phone: 03-26-2009 influenza virus vacc ine, unspecified formulation Rhonda Hahn MD Work Phone: [facility] Work Phone: 03-26-2009 zoster vaccine, live Rhonda Hahn MD Work Phone: [facility] Work Phone: Payers Date Payer Category Payer Medicare [id number] 2020 Unknown [employer] MEDICARE SUPPLEMENT [id number] 2020-Present [id number] [place] [id number] [place] [id number] 2020 Unknown [employer] MED[employer] SUPPLEMENT [id number] 2020-Present [phone] [id number] [employer] [place] [id number] [place] [id number] 2011 Medicare MEDICARE MEDICAR E A AND B [id number] 2011-Present [phone] [place] [address] Medicare [id number] 2011 Medicare MEDICARE MEDICAR E A AND B [id number] 2011-Present [phone] [place] [address] Medicare [id number] 2011 Medicare [id number] Social History Date Type Detail Facility Start: 06-21-2016 End: 02-01-2022 Tobacco smoking status NHIS Ex-smoker [facility] Work Phone: End: 05-22-2016 History of tobacco use Current smoker [facility] Work Phone: End: 05-22-2016 History of tobacco use Cigarette Smoker [facility] Work Phone: Start: 06-21-2016 End: 10-26-2022 Cigarettes smoked current (pack per day) - Reported 2 [facility] Start: 06-21-2016 End: 02-01-2022 Tobacco use and exposure Former smokeless tobacco user [facility] Work Phone: Start: 07-24-2021 End: 04-12-2023 Alcohol intake Current non-drinker of alcohol (finding) [facility] Start: 01-22-2021 End: 08-06-2022 History SDOH Alcohol Frequency 1 [facility] Start: 01-22-2021 End: 08-06-2022 History SDOH Social Connections Phone 5 [facility] Start: 01-22-2021 End: 08-06-2022 History SDOH Social Connections Get Together 2 [facility] Start: 01-22-2021 End: 08-06-2022 History SDOH Social Connections Druze 3 [facility] Start: 01-22-2021 History SDOH Physical Activity MPS 6 [facility] Start: 01-22-2021 Education 15 [facility] Start: 11-16-2014 End: 02-01-2022 Tobacco Comment Currently down to 0.5 PPD, 11/16/14. TO [facility] Start: 1945 Sex Assigned At Male [facility] Start: 01-12-2022 End: 02-01-2022 Exposure to SARS-CoV-2 (event) Not sure [facility] Start: 07-31-2022 End: 08-06-2022 History SDOH Alcohol Std Drinks 0 [facility] Start: 08-05-2022 End: 10-26-2022 Social connection and isolation panel [facility] Do you belong to any clubs or organizations such as quaker groups, unions, fraternal or athletic groups, or school groups? Yes [facility] Are you now , , , , never or living with a partner? [facility] How often to you hav e a drink containing alcohol? Never [facility] How many standard dr inks containing alcohol do you have on a typical day? Patient does not drink [facility] Do you feel stress - tense, restless, nervous, or anxious, or unable to sleep at night because your mind is troubled all the time - these days [OSQ] Not at all [facility] (I/We) worried wheth er (my/our) food would run out before (I/we) got money to buy more. Never true [facility] In the past 12 month s, was there a time when you were not able to pay the mortgage or rent on time? No [facility] Start: 07-17-2019 Gender identity Identifies as male gender (finding) [facility] Start: 02-11-2019 Sexual orientation Heterosexual (finding) [facility] Medical Equipment Procedure Code Equipment Code Equipment Origin al Text Equipment Identifier Dates Implant [employer] - [id number] Start: 01-19-2020 Implant [employer] - [id number] Start: 01-19-2020 Implant [employer] - [id number] Start: 01-19-2020 Implant [employer] - [id number] Start: 01-19-2020 Clinical Notes 09-24-2019 to 04-12-2023 Carlos Cantrell MD - 04/12/2023 8:06 AM Eve Hall PA-C - 02/05/2023 10:00 AM EDTTelephone Encounter - She Burkett - 01/28/2023 10:38 AM EDTPatient Instructions Note Date & Type Note Facility 04-12-2023 Note HNO ID: [id number] Author: Carlos Cantrell MD Service: ? Author Type: Physician Type: Progress Notes Filed: 04/12/2023 9:19 AM Note Text: ESTABLISHED PATIENT VISIT HPI Rikki Ojeda is a 77 year old male who presents with Pr CA ; On ; Most recent and previous PSA reviewed ; MRI fusion bx ; Decipher : 0.57 IPSS Score 03/03/2020 IPSS 13 (moderate symptoms) Creatinine Date Value Ref Range Status 01/24/2023 0.99 0.73 - 1.22 mg/dL Final PSA (ng/mL) Date Value 04/08/2023 4.93 01/24/2023 4.58 09/13/2022 3.76 06/27/2022 4.76 03/26/2022 3.63 01/08/2022 3.10 10/16/2021 3.50 06/05/2021 3.1 04/23/2016 3.77 01/19/2014 3.17 PSA Screening (ng/mL) Date Value 09/03/2013 3.08 Color (no units) Date Value 03/09/2021 Yellow 06/30/2019 Yellow Clarity (no units) Date Value 03/09/2021 Clear 06/30/2019 Clear Glucose, Urine Date Value 03/09/2021 Negative 06/30/2019 Negative mg/dL Bilirubin, Urine (no units) Date Value 03/09/2021 Negative 06/30/2019 Negative Ketones, Urine (no units) Date Value 03/09/2021 Negative 06/30/2019 Negative Specific Esmond, Ur (no units) Date Value 03/09/2021 1.007 06/30/2019 1.004 Hemoglobin/Blood,Ur Date Value 03/09/2021 Negative 06/30/2019 2+ pH, Urine (no units) Date Value 03/09/2021 6.0 06/30/2019 7.0 Protein, Urine Date Value 03/09/2021 Negative 06/30/2019 Negative mg/dL Urobilinogen (no units) Date Value 03/09/2021 0.2 EU/dL 06/30/2019 Normal Nitrites (no units) Date Value 03/09/2021 Negative 06/30/2019 Negative Leukest (no units) Date Value 06/30/2019 Negative Leuk Esterase (no units) Date Value 03/09/2021 Trace 24HR Urine Studies: No results for input(s): LUPH , LUCAL , LUCIT , LUOXA , LUURIC , LUVOL , LSCAO , LSCAP , LSURIC , LUCL , YAZMIN , MAT , LUUREA , LUAM , LUMAG , LUPHOS , LUPCR , LUCREA , LUCRKBW , LUCAKBW , LUCACREA , LUCREACL , LWK , LUSUL in the last 21920 hours. REVIEW OF SYSTEMS Review of Systems Constitutional: Negative for chills, fatigue, fever and unexpected weight change. HENT: Negative for sore throat and trouble swallowing. Eyes: Negative for visual disturbance. Respiratory: Negative for shortness of breath and wheezing. Cardiovascular: Negative for chest pain and leg swelling. Gastrointestinal: Negative for abdominal pain, blood in stool, diarrhea and nausea. Endocrine: Positive for polyuria. Genitourinary: Positive for difficulty urinating, frequency and urgency. Negative for dysuria, enuresis, flank pain and hematuria. Nocturia Intermittency Straining Musculoskeletal: Negative for back pain. Skin: Negative for rash. Neurological: Negative for dizziness and headaches. Hematological: Does not bruise/bleed easily. Psychiatric/Behavioral: Negative for behavioral problems and confusion. Review of system, history including past medical history, surgical history, family history and social history reviewed and confirmed by me. HISTORIES PAST MEDICAL HISTORY Diagnosis Date Abnormal EKG 03/21/2018 incomplete RBBB Actinic keratosis Acute respiratory failure with hypoxemia (HCC) 09/24/2019 Back pain Benign neoplasm of skin of trunk, except scrotum Condyloma acuminatum COPD (chronic obstructive pulmonary disease) (HCC) multiple inhalers, uses O2 3L hs HLD (hyperlipidemia) HTN (hypertension) Lipoma of other skin and subcutaneous tissue Lump or mass in breast Neoplasm of uncertain behavior of skin Other chronic dermatitis due to solar radiation Other disorders of bone and cartilage(733.99) Perichondritis of pinna, unspecified Personal history of other malignant neoplasm of skin Scar condition and fibrosis of skin Snoring Viral warts, unspecified PAST SURGICAL HISTORY Procedure Laterality Date ARTHRP KNE CONDYLEANDPLATU MEDIALANDLAT COMPARTMENTS 04/21/2012 right total knee COLONOSCOPY FLX DX W/COLLJ SPEC WHEN PFRMD 10/04/2014 Colonoscopy LITHOTRIPSY XTRCORP SHOCK WAVE Left 06/2019 PAST SURGICAL HISTORY OF left knee arthroscopy PAST SURGICAL HISTORY OF 12/2019 [employer] Prostatic REM LESION NEC,HND,SCAL 0.6-1.0CM 10/25/2007 Exc. SC mass left breast FAMILY HISTORY Problem Relation Age of Onset Heart Mother Stroke Mother Heart Father Stroke Father Hemorrhagic, age 73 yo. Asthma Grandchild SOCIAL HISTORY Social History Tobacco Use Smoking status: Former Packs/day: 2.00 Years: 50.00 Additional pack years: 0.00 Total pack years: 100.00 Types: Cigarettes Quit date: 05/22/2016 Years since quittin.8 Smokeless tobacco: Former Tobacco comments: Currently down to 0.5 PPD, 11/16/14. TO Substance Use Topics Alcohol use: No Drug use: No MEDICATIONS: etjjgvwqny-cifcfahe-pqahyxwmbi (BREZTRI AEROSPHERE) 160-9-4.8 mcg/actuation HFA aerosol inhaler cetirizine (ZYRTEC) 10 mg tablet Take 1 tablet by mouth once lizeth (more content not included)... [facility] 04-12-2023 History of Present illness Narrative ESTABLISHED PATIENT VISIT HPI Rikki Ojeda is a 77 year old male who presents with Pr CA ; On ; Most recent and previous PSA reviewed ; MRI fusion bx ; Decipher : 0.57 IPSS Score 03/03/2020 IPSS 13 (moderate symptoms) Creatinine Date Value Ref Range Status 01/24/2023 0.99 0.73 - 1.22 mg/dL Final PSA (ng/mL) Date Value 04/08/2023 4.93 01/24/2023 4.58 09/13/2022 3.76 06/27/2022 4.76 03/26/2022 3.63 01/08/2022 3.10 10/16/2021 3.50 06/05/2021 3.1 04/23/2016 3.77 01/19/2014 3.17 PSA Screening (ng/mL) Date Value 09/03/2013 3.08 Color (no units) Date Value 03/09/2021 Yellow 06/30/2019 Yellow Clarity (no units) Date Value 03/09/2021 Clear 06/30/2019 Clear Glucose, Urine Date Value 03/09/2021 Negative 06/30/2019 Negative mg/dL Bilirubin, Urine (no units) Date Value 03/09/2021 Negative 06/30/2019 Negative Ketones, Urine (no units) Date Value 03/09/2021 Negative 06/30/2019 Negative Specific Esmond, Ur (no units) Date Value 03/09/2021 1.007 06/30/2019 1.004 Hemoglobin/Blood,Ur Date Value 03/09/2021 Negative 06/30/2019 2+ pH, Urine (no units) Date Value 03/09/2021 6.0 06/30/2019 7.0 Protein, Urine Date Value 03/09/2021 Negative 06/30/2019 Negative mg/dL Urobilinogen (no units) Date Value 03/09/2021 0.2 EU/dL 06/30/2019 Normal Nitrites (no units) Date Value 03/09/2021 Negative 06/30/2019 Negative Leukest (no units) Date Value 06/30/2019 Negative Leuk Esterase (no units) Date Value 03/09/2021 Trace 24HR Urine Studies: No results for input(s): LUPH , LUCAL , LUCIT , LUOXA , LUURIC , LUVOL , LSCAO , LSCAP , LSURIC , LUCL , YAZMIN , MAT , LUUREA , LUAM , LUMAG , LUPHOS , LUPCR , LUCREA , LUCRKBW , LUCAKBW , LUCACREA , LUCREACL , LWK , LUSUL in the last 94214 hours. REVIEW OF SYSTEMS Review of Systems Constitutional: Negative for chills, fatigue, fever and unexpected weight change. HENT: Negative for sore throat and trouble swallowing. Eyes: Negative for visual disturbance. Respiratory: Negative for shortness of breath and wheezing. Cardiovascular: Negative for chest pain and leg swelling. Gastrointestinal: Negative for abdominal pain, blood in stool, diarrhea and nausea. Endocrine: Positive for polyuria. Genitourinary: Positive for difficulty urinating, frequency and urgency. Negative for dysuria, enuresis, flank pain and hematuria. Nocturia Intermittency Straining Musculoskeletal: Negative for back pain. Skin: Negative for rash. Neurological: Negative for dizziness and headaches. Hematological: Does not bruise/bleed easily. Psychiatric/Behavioral: Negative for behavioral problems and confusion. Review of system, history including past medical history, surgical history, family history and social history reviewed and confirmed by me. HISTORIES PAST MEDICAL HISTORY Diagnosis Date Abnormal EKG 03/21/2018 incomplete RBBB Actinic keratosis Acute respiratory failure with hypoxemia (HCC) 09/24/2019 Back pain Benign neoplasm of skin of trunk, except scrotum Condyloma acuminatum COPD (chronic obstructive pulmonary disease) (HCC) multiple inhalers, uses O2 3L hs HLD (hyperlipidemia) HTN (hypertension) Lipoma of other skin and subcutaneous tissue Lump or mass in breast Neoplasm of uncertain behavior of skin Other chronic dermatitis due to solar radiation Other disorders of bone and cartilage(733.99) Perichondritis of pinna, unspecified Personal history of other malignant neoplasm of skin Scar condition and fibrosis of skin Snoring Viral warts, unspecified PAST SURGICAL HISTORY Procedure Laterality Date ARTHRP KNE CONDYLE&PLATU MEDIAL&LAT COMPARTMENTS 04/21/2012 right total knee COLONOSCOPY FLX DX W/COLLJ SPEC WHEN PFRMD 10/04/2014 Colonoscopy LITHOTRIPSY XTRCORP SHOCK WAVE Left 06/2019 PAST SURGICAL HISTORY OF 1969's left knee arthroscopy PAST SURGICAL HISTORY OF 12/2019 UroLift Prostatic REM LESION NEC,HND,SCAL 0.6-1.0CM 10/25/2007 Exc. SC mass left breast FAMILY HISTORY Problem Relation Age of Onset Heart Mother Stroke Mother Heart Father Stroke Father Hemorrhagic, age 73 yo. Asthma Grandchild SOCIAL HISTORY Social History Tobacco Use Smoking status: Former Packs/day: 2.00 Years: 50.00 Additional pack years: 0.00 Total pack years: 100.00 Types: Cigarettes Quit date: 05/22/2016 Years since quittin.8 Smokeless tobacco: Former Tobacco comments: Currently down to 0.5 PPD, 11/16/14. TO Substance Use Topics Alcohol use: No Drug use: No MEDICATIONS: vxjisszpes-jghcslzd-bycmvurpja (BREZTRI AEROSPHERE) 160-9-4.8 mcg/actuation HFA aerosol inhaler cetirizine (ZYRTEC) 10 mg tablet Take 1 tablet by mouth once daily. guaiFENesin (MUCINEX) 600 mg 12 hr tablet 1,200 mg. lisinopril (ZESTRIL) 10 mg tablet Take 1 tablet by mouth once daily. atorvastatin (LIPITOR) 20 mg tablet Take 1 tablet by mouth daily at bedtime. For cholesterol. Geriatric Multivit w/Iron-Min (COMPLETE SENIOR) tab Take by mouth. atorvastatin (LIPITOR) 40 mg tablet Take 0.5 tablets by mouth daily at bedtime. fluticasone (FLONASE) 50 mcg/actuation nasal spray Use 2 Sprays in each nostril once daily. Rinse mouth after use. benralizumab (FASENRA) 30 mg/mL injection Benralizumab (Fasenra) 30 mg/mL syringe Active 30 MG SC every 4 weeks July 13, 2020 11:24am montelukast (SINGULAIR) 10 mg tablet Take 10 mg by mouth daily at bedtime. albuterol HFA (PROAIR HFA) 90 mcg/actuation inhaler Inhale 2 Puffs as instructed every 4 hours as needed (FOR COUGH OR WHEEZE). albuterol (PROVENTIL) 2.5 mg /3 mL (0.083 %) nebulizer solution Use 3 mL via nebulizer every 4 hours as needed for Wheezing/Shortness of Breath. Use over 5-15minutes. RESTASIS 0.05 % ophthalmic emulsion as needed. Nebulizer 1 Device three times daily. NEBULIZER FOR HOME USE. DX: copd exacerbation TRELEGY ELLIPTA 200-62.5-25 mcg inhalation powder Inhale 1 Puff as instructed once daily. PHYSICAL EXAMINATION General appearance: Well appearing, alert, in no acute distress, and well-hydrated, well nourished Reviewed current PSA Reviewed prior biopsy Reviewed current decipher score Continue with active surveillance, reviewed NCCN guidelines ASSESSMENT/PLAN: 1. Malignant neoplasm of prostate (HCC) - ICD9: 185, ICD10: C61 - PSA/PROSTSPECAG NARCISA Cantrell Medical Decision Making: Medical Decision Making Level: 1 - N/A documented in this encounter [facility] 02-05-2023 Note HNO ID: [id number] Author: Eve Daniel PA-C Service: ? 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 Mo Castrejon and Joanna Hendrix. Interval history: doing well. . Current medications: Flonase 50mcg 2 sprays each side Montelukast daily at bedtime Trelegy Ellipta 200-60 2.5-25 mcg 1 puff daily Worsening shortness of breath: depends on activity, uses inhaler to golf sometimes. Cough: No. Wheezing: Yes as Fasenra wearing off. Smoking: No. Compliant with medications: Yes. Using rescue inhaler: occasionally. Had URI + covid a few months ago Hypertension, unspecified type Benign atrial arrhythmia Mixed hyperlipidemia Current meds: Atorvastatin 40 mg 1/2 tablet at at bedtime Lisinopril 10 mg daily Use of NTG: No Chest pain, arm, jaw pain, neck, or upper back pain suggestive of angina: No. SOB: No Dyspnea with exertion: Yes orthopnea: No Cough : No racing or irregular heartbeats: No palpitations: No syncopal sx: No Headache: No Unexplainable fatigue No Leg swelling: No Nausea: No diaphoresis: No Heartburn: No Claudication: No Smoking: No Following Low cholesterol, high fiber diet? daily If on statin: muscle aches? No If on statin: GI sx or diarrhea? No Additional history none. Lab review: Component Latest Ref Rng AND Units 02/03/2019 01/27/2021 01/08/2022 01/24/2023 WBC 3.70 - 11.00 k/uL 7.08 6.72 7.24 7.19 RBC 4.20 - 6.00 m/uL 5.32 4.89 5.25 5.00 Hemoglobin 13.0 - 17.0 g/dL 16.3 15.0 15.6 15.2 Hematocrit 39.0 - 51.0 % 49.0 47.1 48.7 46.4 MCV 80.0 - 100.0 fL 92.1 96.3 92.8 92.8 MCH 26.0 - 34.0 pg 30.6 30.7 29.7 30.4 MCHC 30.5 - 36.0 g/dL 33.3 31.8 32.0 32.8 RDW-CV 11.5 - 15.0 % 13.1 12.8 12.5 12.7 Platelet Count 150 - 400 k/uL 207 209 209 216 MPV 9.0 - 12.7 fL 11.3 11.3 11.3 11.3 Neut% % 47.0 60.5 49.5 54.5 Abs Neut (ANC) 1.45 - 7.50 k/uL 3.32 4.05 3.59 3.92 Lymph% % 36.9 29.5 41.6 36.3 Abs Lymph 1.00 - 4.00 k/uL 2.61 1.98 3.01 2.61 [place]% % 7.9 9.7 8.3 8.8 Abs [place] <0.87 k/uL 0.56 0.65 0.60 0.63 Eosin% % 7.1 0.0 0.0 0.0 Abs Eosin <0.46 k/uL 0.50 (H) <0.03 <0.03 <0.03 Baso% % 1.1 0.3 0.3 0.3 Abs Baso <0.11 k/uL 0.08 <0.03 <0.03 <0.03 Immature Gran % % 0.3 0.1 IMMATURE GRANS (ABS) <0.10 k/uL <0.03 <0.03 NRBC /100 WBC 0.0 0.0 Absolute nRBC <0.01 k/uL <0.01 <0.01 <0.01 <0.01 DTYPE Auto Auto Nucleated Reds 0 /100 WBC 0.0 0.0 Diff Type Auto Diff Auto Diff Protein, Total 6.3 - 8.0 g/dL 6.0 (L) 7.1 Albumin 3.9 - 4.9 g/dL 4.3 4.4 Calcium 8.5 - 10.2 mg/dL 9.4 9.5 Bilirubin, Total 0.2 - 1.3 mg/dL 0.4 0.5 Alkaline Phosphatase 38 - 113 U/L 72 59 AST 14 - 40 U/L 16 18 Glucose 74 - 99 mg/dL 83 93 BUN 9 - 24 mg/dL 22 19 Creatinine 0.73 - 1.22 mg/dL 1.00 0.99 Sodium 136 - 144 mmol/L 142 142 Potassium 3.7 - 5.1 mmol/L 4.3 4.3 Chloride 97 - 105 mmol/L 106 (H) 107 (H) CO2 22 - 30 mmol/L 26 25 Anion Gap 9 - 18 mmol/L 10 10 ALT 10 - 54 U/L 20 14 eGFR- >60 eGFR-All Other Races . >60 eGFR >=60 mL/min/1.73mA? 79 Cholesterol, Total <200 mg/dL 142 Triglyceride <150 mg/dL 64 HDL Cholesterol >39 mg/dL 63 Non HDL Cholesterol <130 mg/dL 79 Fasting Time hrs 14 VLDL Cholesterol <30 mg/dL 13 TC:HDL Ratio <5.10 2.25 LDL Cholesterol <100 mg/dL 66 LDL:HDL Ratio <2.54 1.05 Carcinoma of prostate (hcc) Nocturia Current medications: Fasenra 30 Mg per mL SC every 4 weeks 01/28/2023 following notes indicate PSA rechecks in 3 and 6 months. 11/07/2022 last follow-up with Dr. Cantrell No getting up at night, good flow. Erections are firm PSA (ng/mL) Date Value 01/24/2023 4.58 09/13/2022 3.76 06/27/2022 4.76 03/26/2022 3.63 06/05/2021 3.1 04/23/2016 3.77 01/19/2014 3.17 PSA Screening (ng/mL) Date Value 09/03/2013 3.08 10/10/2022 prostate bx FINAL DIAGNOSIS A. Prostate, left lateral base, core biopsy: - Benign prostatic tissue. B. Prostate, left lateral mid, core biopsy: - Benign prostatic tissue. C. Prostate, left lateral apex, core biopsy: - Benign prostatic tissue. D. Prostate, right lateral base, core biopsy: - Benign prostatic tissue. E. Prostate, right lateral mid, core biopsy: - Benign prostatic tissue. F. Prostate, right lateral apex, core biopsy: - Benign prostatic tissue. G. Prostate, right, lesion #1, core biopsy: - Prostatic acinar adenocarcinoma, [place]ora score 3+3 = 6 (grade group 1) involving three of three cores (65%, 7 mm, discontinuous involvement; 20%, 2 mm; 20%, 2 mm). See comment. H. Prostate, right, lesion #2, core biopsy: - Prostatic acinar adenocarcinoma, [place] score 3+4 = 7 (grade group 2) involving three of three cores (50%, 8 mm; 40%, 5 mm; 30%, 4 mm). See comment. - Percent pattern 4: 5%. - Large gland/expansile cribriform pattern 4 (more content not included)... 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 Mo Castrejon and Joanna Hendrix. Interval history: doing well. . Current medications: Flonase 50mcg 2 sprays each side Montelukast daily at bedtime Trelegy Ellipta 200-60 2.5-25 mcg 1 puff daily Worsening shortness of breath: depends on activity, uses inhaler to golf sometimes. Cough: No. Wheezing: Yes as Fasenra wearing off. Smoking: No. Compliant with medications: Yes. Using rescue inhaler: occasionally. Had URI + covid a few months ago Hypertension, unspecified type Benign atrial arrhythmia Mixed hyperlipidemia Current meds: Atorvastatin 40 mg 1/2 tablet at at bedtime Lisinopril 10 mg daily Use of NTG: No Chest pain, arm, jaw pain, neck, or upper back pain suggestive of angina: No. SOB: No Dyspnea with exertion: Yes orthopnea: No Cough : No racing or irregular heartbeats: No palpitations: No syncopal sx: No Headache: No Unexplainable fatigue No Leg swelling: No Nausea: No diaphoresis: No Heartburn: No Claudication: No Smoking: No Following Low cholesterol, high fiber diet? daily If on statin: muscle aches? No If on statin: GI sx or diarrhea? No Additional history none. Lab review: Component Latest Ref Rng & Units 02/03/2019 01/27/2021 01/08/2022 01/24/2023 WBC 3.70 - 11.00 k/uL 7.08 6.72 7.24 7.19 RBC 4.20 - 6.00 m/uL 5.32 4.89 5.25 5.00 Hemoglobin 13.0 - 17.0 g/dL 16.3 15.0 15.6 15.2 Hematocrit 39.0 - 51.0 % 49.0 47.1 48.7 46.4 MCV 80.0 - 100.0 fL 92.1 96.3 92.8 92.8 MCH 26.0 - 34.0 pg 30.6 30.7 29.7 30.4 MCHC 30.5 - 36.0 g/dL 33.3 31.8 32.0 32.8 RDW-CV 11.5 - 15.0 % 13.1 12.8 12.5 12.7 Platelet Count 150 - 400 k/uL 207 209 209 216 MPV 9.0 - 12.7 fL 11.3 11.3 11.3 11.3 Neut% % 47.0 60.5 49.5 54.5 Abs Neut (ANC) 1.45 - 7.50 k/uL 3.32 4.05 3.59 3.92 Lymph% % 36.9 29.5 41.6 36.3 Abs Lymph 1.00 - 4.00 k/uL 2.61 1.98 3.01 2.61 [place]% % 7.9 9.7 8.3 8.8 Abs [place] <0.87 k/uL 0.56 0.65 0.60 0.63 Eosin% % 7.1 0.0 0.0 0.0 Abs Eosin <0.46 k/uL 0.50 (H) <0.03 <0.03 <0.03 Baso% % 1.1 0.3 0.3 0.3 Abs Baso <0.11 k/uL 0.08 <0.03 <0.03 <0.03 Immature Gran % % 0.3 0.1 IMMATURE GRANS (ABS) <0.10 k/uL <0.03 <0.03 NRBC /100 WBC 0.0 0.0 Absolute nRBC <0.01 k/uL <0.01 <0.01 <0.01 <0.01 DTYPE Auto Auto Nucleated Reds 0 /100 WBC 0.0 0.0 Diff Type Auto Diff Auto Diff Protein, Total 6.3 - 8.0 g/dL 6.0 (L) 7.1 Albumin 3.9 - 4.9 g/dL 4.3 4.4 Calcium 8.5 - 10.2 mg/dL 9.4 9.5 Bilirubin, Total 0.2 - 1.3 mg/dL 0.4 0.5 Alkaline Phosphatase 38 - 113 U/L 72 59 AST 14 - 40 U/L 16 18 Glucose 74 - 99 mg/dL 83 93 BUN 9 - 24 mg/dL 22 19 Creatinine 0.73 - 1.22 mg/dL 1.00 0.99 Sodium 136 - 144 mmol/L 142 142 Potassium 3.7 - 5.1 mmol/L 4.3 4.3 Chloride 97 - 105 mmol/L 106 (H) 107 (H) CO2 22 - 30 mmol/L 26 25 Anion Gap 9 - 18 mmol/L 10 10 ALT 10 - 54 U/L 20 14 eGFR- >60 eGFR-All Other Races . >60 eGFR >=60 mL/min/1.73m 79 Cholesterol, Total <200 mg/dL 142 Triglyceride <150 mg/dL 64 HDL Cholesterol >39 mg/dL 63 Non HDL Cholesterol <130 mg/dL 79 Fasting Time hrs 14 VLDL Cholesterol <30 mg/dL 13 TC:HDL Ratio <5.10 2.25 LDL Cholesterol <100 mg/dL 66 LDL:HDL Ratio <2.54 1.05 Carcinoma of prostate (hcc) Nocturia Current medications: Fasenra 30 Mg per mL SC every 4 weeks 01/28/2023 following notes indicate PSA rechecks in 3 and 6 months. 11/07/2022 last follow-up with Dr. Cantrell No getting up at night, good flow. Erections are firm PSA (ng/mL) Date Value 01/24/2023 4.58 09/13/2022 3.76 06/27/2022 4.76 03/26/2022 3.63 06/05/2021 3.1 04/23/2016 3.77 01/19/2014 3.17 PSA Screening (ng/mL) Date Value 09/03/2013 3.08 10/10/2022 prostate bx FINAL DIAGNOSIS A. Prostate, left lateral base, core biopsy: - Benign prostatic tissue. B. Prostate, left lateral mid, core biopsy: - Benign prostatic tissue. C. Prostate, left lateral apex, core biopsy: - Benign prostatic tissue. D. Prostate, right lateral base, core biopsy: - Benign prostatic tissue. E. Prostate, right lateral mid, core biopsy: - Benign prostatic tissue. F. Prostate, right lateral apex, core biopsy: - Benign prostatic tissue. G. Prostate, right, lesion #1, core biopsy: - Prostatic acinar adenocarcinoma, Nora score 3+3 = 6 (grade group 1) involving three of three cores (65%, 7 mm, discontinuous involvement; 20%, 2 mm; 20%, 2 mm). See comment. H. Prostate, right, lesion #2, core biopsy: - Prostatic acinar adenocarcinoma, [place] score 3+4 = 7 (grade group 2) involving three of three cores (50%, 8 mm; 40%, 5 mm; 30%, 4 mm). See comment. - Percent pattern 4: 5%. - Large gland/expansile cribriform pattern 4 absent. Prostate Cancer Biopsy Summary Number of cores examined: 12 Number of cores positive: 6 Highest Grade Group: grade group 2 Highest % of core involvement: 65% Cribriform pattern 4: Absent Intraductal carcinoma: Absent [employer] tumor block to use for additional studies: H-2 Spinal stenosis of lumbar region Doing fine. Not bothering. Can walk a long way if level. Golfing 18 holes Episodic cluster headache, not intractable No significant headaches in last 8 years Dry Eye Current medications: Restasis 0.05% ophthalmic emulsion as needed Saw [facility] [place] BCC right moravian and zygomatic Moh's surgery x 2 HISTORIES FAMILY HISTORY Problem Relation Age of Onset Heart Mother Stroke Mother Heart Father Stroke Father Hemorrhagic, age 73 yo. Asthma Grandchild PAST MEDICAL HISTORY Diagnosis Date Abnormal EKG 03/21/2018 incomplete RBBB Actinic keratosis Acute respiratory failure with hypoxemia (HCC) 09/24/2019 Back pain Benign neoplasm of skin of trunk, except scrotum Condyloma acuminatum COPD (chronic obstructive pulmonary disease) (HCC) multiple inhalers, uses O2 3L hs HLD (hyperlipidemia) HTN (hypertension) Lipoma of other skin and subcutaneous tissue Lump or mass in breast Neoplasm of uncertain behavior of skin Other chronic dermatitis due to solar radiation Other disorders of bone and cartilage(733.99) Perichondritis of pinna, unspecified Personal history of other malignant neoplasm of skin Scar condition and fibrosis of skin Snoring Viral warts, unspecified PAST SURGICAL HISTORY Procedure Laterality Date ARTHRP KNE CONDYLE&PLATU MEDIAL&LAT COMPARTMENTS 04/21/2012 right total knee COLONOSCOPY FLX DX W/COLLJ SPEC WHEN PFRMD 10/04/2014 Colonoscopy LITHOTRIPSY XTRCORP SHOCK WAVE Left 06/2019 PAST SURGICAL HISTORY OF left knee arthroscopy PAST SURGICAL HISTORY OF 12/2019 UroLift Prostatic REM LESION NEC,HND,SCAL 0.6-1.0CM 10/25/2007 Exc. SC mass left breast Social History Tobacco Use Smoking status: Former Packs/day: 2.00 Years: 50.00 Additional pack years: 0.00 Total pack years: 100.00 Types: Cigarettes Quit date: 05/22/2016 Years since quittin.7 Smokeless tobacco: Former Tobacco comments: Currently down to 0.5 PPD, 11/16/14. TO Substance Use Topics Alcohol use: No Drug use: No ACTIVE PROBLEM LIST Personal History of Other Malignant Neoplasm of Skin Spinal Stenosis of Lumbar Region Copd (Chronic Obstructive Pulmonary Disease) (Hcc) Actinic Keratosis (Premalignant [place]) Actinic Damage//Sun-Damaged Skin Seborrheic Keratosis Lipoma of Skin and Subcutaneous Tissue Angiolipoma Solar Lentigines Migraine Hyperlipidemia Benign Prostatic Hyperplasia Allergic Rhinitis Erectile Dysfunction Nocturia Frequency of Urination Elevated Psa Microscopic Hematuria Smoking History Arthritis of Shoulder Region, Left Benign Atrial Arrhythmia 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 atorvastatin (LIPITOR) 40 mg tablet Take 0.5 tablets by mouth daily at bedtime. 45 tablet 1 lisinopril (ZESTRIL, PRINIVIL) 10 mg tablet Take 1 tablet by mouth once daily. 90 tablet 1 fluticasone (FLONASE) 50 mcg/actuation nasal spray Use 2 Sprays in each nostril once daily. Rinse mouth after use. 3 Each 3 diphenhydrAMINE HCl 50 mg/30 mL liqd Take by mouth. guaiFENesin 1,200 mg Ta12 Take by mouth twice daily. benralizumab (FASENRA) 30 mg/mL injection Benralizumab (Fasenra) 30 mg/mL syringe Active 30 MG SC every 4 weeks 1 July 13, 2020 11:24am montelukast (SINGULAIR) 10 mg tablet Take 10 mg by mouth daily at bedtime. TRELEGY ELLIPTA 100-62.5-25 mcg Inhale 1 Puff as instructed once daily. albuterol HFA (PROAIR HFA) 90 mcg/actuation inhaler Inhale 2 Puffs as instructed every 4 hours as needed (FOR COUGH OR WHEEZE). 3 Inhaler 1 albuterol (PROVENTIL) 2.5 mg /3 mL (0.083 %) nebulizer solution Use 3 mL via nebulizer every 4 hours as needed for Wheezing/Shortness of Breath. Use over 5-15minutes. 1 Package 11 RESTASIS 0.05 % ophthalmic emulsion as needed. Nebulizer 1 Device three times daily. NEBULIZER FOR HOME USE. DX: copd exacerbation 1 Device 0 No current facility-administered medications for this visit. DTAP,TDAP,TD(1 - Tdap) due on 07/03/2013 COVID-19 VACCINE(6 - Moderna series) due on 07/20/2022 EXAM: BP 128/72 Pulse 82 Resp 16 Wt 78 kg (172 lb) SpO2 95% BMI 26.15 kg/m Pleasant well appearing older man in no acute distress. Usual pleasant banter, cheerful disposition. Alert and oriented all spheres. Normal affect and cognition. Speech normal. No deficits to learning or comprehension. Skin warm, dry, pink to lips and nailbeds. Normal turgor. Healing areas from derm procedures. Respirations regular and unlabored. HEENT: NCAT. No scleral icterus or conjunctival injection. TM's clear. Nose and oropharynx free from injection or lesion. Oral membranes moist and pink. No cervical lymph nodes. Thyroid non-tender, no masses, or enlargement. Carotids pulses 2+/4+ without bruits. No JVD with HOB at 30 degrees. Chest is normal shape. Lungs are clear to all ralph with good air exchange through out. HRRR without murmur or gallop. No lifts, heaves, or rubs. Extrem: no clubbing or cyanosis. Edema: none. Extremities are warm and pink with prompt capillary refill. ASSESSMENT/PLAN: 1. 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 Follows with Dr. Castrejon through [place] 2. Hypertension, unspecified type - ICD9: 401.9, ICD10: I10 - Controlled - Continue current medications - Recommend home blood pressure monitoring, to bring results to next visit - Encouraged sodium restriction, DASH or Mediterranean diet - Recommend regular aerobic exercise - LISINOPRIL 10 MG TABLET 3. Benign atrial arrhythmia - ICD9: 427.9, ICD10: I49.9 Stable, asymptomatic 4. Mixed hyperlipidemia - ICD9: 272.2, ICD10: E78.2 - Controlled - Continue current medications - Counseled on healthy diet and regular exercise 5. Chronic obstructive pulmonary disease, unspecified COPD type (HCC) - ICD9: 496, ICD10: J44.9 As above, stable 6. Carcinoma of prostate (HCC) - ICD9: 185, ICD10: C61 PSA being monitored by urology. Feels well: no unusual pain 7. Nocturia - ICD9: 788.43, ICD10: R35.1 Improved significantly: rare 8. Spinal Stenosis of Lumbar Region - ICD9: 724.02, ICD10: M48.061 Doing well, able to golf, walk up hills, occasional rest. 9. Episodic cluster headache, not intractable - ICD9: 339.01, ICD10: G44.019 No occurrence in several months. Office Visit on 02/05/23 LIPID PANEL BASIC COMP METABOLIC PANEL CBC + DIFF F/u 6 months with fasting lab prior Eve Daniel PA-C documented in this encounter [facility] 01-28-2023 Miscellaneous Notes Patient is aware and understand Patient will get his PSA checked in 3 and 6 months. She Mccoy Patient seen his PSA went up to 4.58. Patient is not scheduled to see you until 07/29/2023. Patient want to know what you would like to do moving forward. She Mccoy documented in this encounter [facility] 11-21-2022 Note HNO ID: [id number] Author: Tony Dubose MD Service: ? Author Type: Physician Type: Progress Notes Filed: 11/21/2022 5:40 PM Note Text: Patient presents with: Covid19 Concern: Fever, ST x today, positive exposure HPI: Feeling sick this afternoon after golfing. He then had 2 positive home COVID tests today. Positive symptoms: Sore throat, Fever, Fatigue, Negative symptoms: Cough, Shortness of breath, Body Aches, Headache, change in baseline shortness of breath OTC: has an inhaler. Had COVID booster in February. Exposed to his brother and his had COVID last week. MEDICATIONS: Current Outpatient Medications Medication Sig molnupiravir 200 mg capsule Take 4 capsules by mouth twice daily for 5 days. Geriatric Multivit w/Iron-Min (COMPLETE SENIOR) tab Take by mouth. atorvastatin (LIPITOR) 40 mg tablet Take 0.5 tablets by mouth daily at bedtime. lisinopril (ZESTRIL, PRINIVIL) 10 mg tablet Take 1 tablet by mouth once daily. fluticasone (FLONASE) 50 mcg/actuation nasal spray Use 2 Sprays in each nostril once daily. Rinse mouth after use. diphenhydrAMINE HCl 50 mg/30 mL liqd Take by mouth. guaiFENesin 1,200 mg Ta12 Take by mouth twice daily. benralizumab (FASENRA) 30 mg/mL injection Benralizumab (Fasenra) 30 mg/mL syringe Active 30 MG SC every 4 weeks July 13, 2020 11:24am montelukast (SINGULAIR) 10 mg tablet Take 10 mg by mouth daily at bedtime. TRELEGY ELLIPTA 100-62.5-25 mcg Inhale 1 Puff as instructed once daily. albuterol HFA (PROAIR HFA) 90 mcg/actuation inhaler Inhale 2 Puffs as instructed every 4 hours as needed (FOR COUGH OR WHEEZE). albuterol (PROVENTIL) 2.5 mg /3 mL (0.083 %) nebulizer solution Use 3 mL via nebulizer every 4 hours as needed for Wheezing/Shortness of Breath. Use over 5-15minutes. RESTASIS 0.05 % ophthalmic emulsion as needed. Nebulizer 1 Device three times daily. NEBULIZER FOR HOME USE. DX: copd exacerbation No current facility-administered medications for this visit. ALLERGIES: ALLERGIES No Known Allergies VITALS: BP 122/70 Pulse 104 Temp (!) 38 ?C (100.4 ?F) Resp 18 Wt 79.4 kg (175 lb) SpO2 93% BMI 26.61 kg/m? PHYSICAL EXAM: GEN: Pleasant, in no acute distress. HEENT: PERRL, EOMI, conjunctiva clear Neck: supple, LUNGS: occasional raspy cough, no increased WOB ASSESSMENT/PLAN: 1. Acute COVID-19 - ICD9: 079.89, ICD10: U07.1 Prescribed - MOLNUPIRAVIR 200 MG CAPSULE (EUA) Follow up virtually with PCP if worsening or not improving. Tony Dubose MD Molnupiravir Eligibility and Patient Discussion [facility] Formulary Restriction Criteria: Adult outpatients 18 years and older with ALL of the following: [x] Patient has symptoms for 5 days or less [x] Not requiring hospitalization at any time for management of COVID-19 [x] Not requiring supplemental oxygen or a change in baseline supplemental oxygen [x] Not utilized for pre-exposure or post-exposure prophylaxis for prevention of COVID-19 [x] Patient is not or lactating [x] Meeting at least one of the criteria for high risk of progression to severe COVID-19: [x] Age over 65 years [x] Cancer [] Chronic kidney disease [] Chronic liver disease [x] Chronic lung diseases, including cystic fibrosis [] Dementia or other neurological conditions [] Diabetes (type 1 or type 2) [] Disabilities, including Down syndrome and neurodevelopmental disorders [] Heart conditions [] HIV infection [] Immunocompromised state [] Mental health conditions [] Medical related technological dependence (tracheostomy, gastrostomy, or positive pressure ventilation (not related to COVID) [] Overweight and obesity (BMI greater or equal to 25 for adults) [] Physical inactivity [] Sickle cell disease or thalassemia [] Smoking, current or former [] Solid organ or blood stem cell transplant [] Stroke or cerebrovascular disease [] Substance use disorders [] Tuberculosis [] People from racial and ethnic minority groups Criteria above are met: Yes Date of Symptom Onset: Patient received COVID vaccine: Yes / status reviewed: Females: [] Patient is not currently and there is no possibility the patient could be (select one of the following): [] test does not need to be confirmed in patients who have undergone permanent sterilization, are currently using an intrauterine system or contraceptive implant, or in whom is not possible. [] Patients not meeting conditions above: assess whether the patient is based on the first day of the last menstrual period in individuals who have regular menstrual cycles, is using reliable method of contraception correctly and consistently or have had a negative test [] A test is recommended if the individual has irregular menstrual cycles, is unsure of the first day of the last menstrual period or (more content not included)... [facility] 11-21-2022 Instructions Tony Dubose MD - 11/21/2022 5:30 PM EDT Beginning Home Isolation Isolation is used to separate people infected with SARS-CoV-2, the virus that causes COVID-19, from people who are not infected. People who are in isolation should stay home until it s safe for them to be around others. In the home, anyone sick or infected should separate themselves from others by staying in a specific sick room or area and using a separate bathroom (if available). Isolation or Quarantine: What's the difference? Quarantine keeps someone who might have been exposed to the virus away from others. Isolation keeps someone who is infected with the virus away from others, even in their home. Who needs to isolate People who have COVID-19 People who have symptoms of COVID-19 and are able to recover at home People who have no symptoms (are asymptomatic) but have tested positive for infection with SARS-CoV-2 Steps to take Stay home except to get medical care Monitor your symptoms. Stay in a separate room from other household members, if possible Use a separate bathroom, if possible Avoid contact with other members of the household and pets Don t share personal household items, like cups, towels, and utensils Wear a mask when around other people, if you are able to When to seek emergency medical attention Look for emergency warning signs* for COVID-19. If someone is showing any of these signs, seek emergency medical care immediately: Trouble breathing Persistent pain or pressure in the chest New confusion Inability to wake or stay awake Bluish lips or face *This list is not all possible symptoms. Please call your medical provider for any other symptoms that are severe or concerning to you. Call 911 or call ahead to your local emergency facility: Notify the dial lathe operator that you are seeking care for someone who has or may have COVID-19. Ending Home Isolation - When you can be around others after you had or likely had COVID-19 When you can be around others after you had or likely had COVID-19 If You Test Positive for COVID-19 (Isolation) Everyone, regardless of vaccination status: Stay home for 5 days. Note: Day 0 is your first day of symptoms or the date of collection of a positive viral test if no symptoms. Day 1 is the first full day after symptoms developed or test specimen was collected. If you have no symptoms or your symptoms are resolving after 5 days, you can leave your house. Continue to wear a mask around others for 5 additional days. If you have a fever, continue to stay home until your fever resolves, even if it is longer than 5 days. If You Were Exposed to Someone with COVID-19 (Quarantine) If you: 1. Have been boosted OR 2. Completed the primary series of Pfizer or Moderna vaccine within the last 6 months OR 3. Completed the primary series of J&J vaccine within the last 2 months THEN: 1. Wear a mask around others for 10 days. 2. Test on day 5, if possible. If you develop symptoms get a test and stay home. If You Were Exposed to Someone with COVID-19 (Quarantine) If you: 1. Completed the primary series of Pfizer or Moderna vaccine over 6 months ago and are not boosted OR 2. Completed the primary series of J&J over 2 months ago and are not boosted OR 3. Are unvaccinated THEN: 1. Stay home for 5 days. After that continue to wear a mask around others for 5 additional days. 2. If you can't quarantine you must wear a mask for 10 days. 3. Test on day 5 if possible. If you develop symptoms get a test and stay home. I had COVID-19 or I tested positive for COVID-19 and I have a weakened immune system If you have a weakened immune system (immunocompromised) due to a health condition or medication, you might need to stay home and isolate longer than 10 days. Talk to your healthcare provider for more information. Your doctor may work with an infectious disease expert at your local health department to determine when you can be around others. How to Manage Common Symptoms Associated with COVID for Adults Fever- Fever is a temperature over 100.4 F and can occur when the body is fighting an infection. To help treat a fever: Drink plenty of fluids and stay well hydrated. Eat small amounts of easy to digest food. Rest. Your body needs rest to recover, but getting up and moving around the house frequently is a good idea. You should try to continue doing your normal daily activities (bathing, toileting, grooming, cooking), though you will probably feel tired, and need to rest often. Avoid any heavy activity or exercise, as this will increase your body temperature. Dress in light clothing and stay covered in a light sheet. Keep the room temperature cool. Take a slightly warm (not cold or cool) bath, or apply damp washcloths to the forehead and wrists. Cough- Cough is a common symptom associated with COVID and can be bothersome. To help treat a cough: Stay well hydrated. Try warm water or tea with lemon and/or honey to help soothe the cough. Use a humidifier to add moisture to the air. Try a product with menthol, like a cough drop or a rub for your chest such as Vicks, which can help reduce cough. Try cough drops. Avoid smoking and other strong odors or perfumes. Try breathing exercises to keep your lungs open and clear. Take a big deep breath through your nose and hold for 5 seconds before slowly releasing. Repeat frequently, while you are awake. Congestion- Runny nose or nasal congestion can occur with COVID. Treatment can help relieve symptoms: Try OTC nasal saline spray, or nasal saline rinse to relieve mucus congestion. Nasal strips can help keep nasal passages open, to increase airflow. Elevating your head with an extra pillow in bed can help reduce congestion. Using a humidifier can increase moisture in the air, and make breathing easier. Sore Throat- Another common symptom with COVID, can be managed at home by: Stay well hydrated. Gargle with salt water - mix teaspoon salt with 1 cup of warm water and gargle. This helps to loosen mucus in the back of the throat and may reduce discomfort. Try ice chips, popsicles or lozenges to soothe the throat. Nausea/Vomiting/Diarrhea- These are common symptoms, and staying hydrated is most important. If you are nauseous or vomiting, start with small sips of water every 10-15 minutes and increase as tolerated. You can try sucking an ice cube too. If tolerating, you can try pedialyte or Gatorade, or flat sprite or latonia-tyson. Start slowly and increase as you are able to. Instead of meals, try smaller, more frequent snacks. Try eating bland foods like crackers, toast, rice, and applesauce. Avoid spicy, greasy or fried foods and dairy containing foods. Even if you aren't feeling hungry due to lack of smell or taste, it is important to try to take in some food when you are able. After drinking and eating, rest in an upright position for up to two hours as needed to help decrease nauseous feelings. Try closing your eyes, avoid moving and watching TV. Avoid strong odors that can make you feel more nauseated. When to seek emergency medical attention Look for emergency warning signs for COVID-19. If having any of these symptoms, seek emergency medical care immediately: Trouble breathing Persistent pain or pressure in the chest New confusion Inability to wake or stay awake Bluish lips or face *This list is not all possible symptoms. Please call your medical provider for any other symptoms that are severe or concerning to you. Fact Sheet for Patients And Caregivers Emergency Use Authorization (EUA) Of LAGEVRIO (molnupiravir) capsules For Coronavirus Disease 2019 (COVID-19) What is the most important information I should know about LAGEVRIO? LAGEVRIO may cause serious side effects, including: LAGEVRIO may cause harm to your unborn baby. It is not known if LAGEVRIO will harm your baby if you take LAGEVRIO during . LAGEVRIO is not recommended for use in . LAGEVRIO has not been studied in . LAGEVRIO was studied in animals only. When LAGEVRIO was given to animals, LAGEVRIO caused harm to their unborn babies. You and your healthcare provider may decide that you should take LAGEVRIO during if there are no other COVID-19 treatment options approved or authorized by the FDA that are accessible or clinically appropriate for you. If you and your healthcare provider decide that you should take LAGEVRIO during , you and your healthcare provider should discuss the known and potential benefits and the potential risks of taking LAGEVRIO during . For individuals who are able to become : You should use a reliable method of control (contraception) consistently and correctly during treatment with LAGEVRIO and for 4 days after the last dose of LAGEVRIO. Talk to your healthcare provider about reliable control methods. Before starting treatment with LAGEVRIO your healthcare provider may do a test to see if you are before starting treatment with LAGEVRIO. Tell your healthcare provider right away if you become or think you may be during treatment with LAGEVRIO. Registry: There is a registry for individuals who take LAGEVRIO during . The purpose of this program is to collect information about the health of you and your baby. If you are or become during treatment with LAGEVRIO, you are encouraged to report your use of LAGEVRIO during to this registry at https://covid-pr.[employer]ur[employer] or . For individuals who are sexually active with partners who are able to become : It is not known if LAGEVRIO can affect sperm. While the risk is regarded as low, animal studies to fully assess the potential for LAGEVRIO to affect the babies of males treated with LAGEVRIO have not been completed. A reliable method of control (contraception) should be used consistently and correctly during treatment with LAGEVRIO and for at least 3 months after the last dose. The risk to sperm beyond 3 months is not known. Studies to understand the risk to sperm beyond 3 months are ongoing. Talk to your healthcare provider about reliable control methods. Talk to your healthcare provider if you have questions or concerns about how LAGEVRIO may affect sperm. You are being given this fact sheet because your healthcare provider believes it is necessary to provide you with LAGEVRIO for the treatment of adults with a current diagnosis of mild-tomoderate coronavirus disease 2019 (COVID-19) who are at high risk for progression to severe COVID-19, including hospitalization or , and for whom other COVID-19 treatment options approved or authorized by the FDA are not accessible or clinically appropriate. The [place]. Food and Drug Administration (FDA) has issued an Emergency Use Authorization (EUA) to make LAGEVRIO available during the COVID-19 pandemic (for more details about an EUA please see What is an Emergency Use Authorization? at the end of this document). LAGEVRIO is not an FDA-approved medicine in the [place]. Read this Fact Sheet for information about LAGEVRIO. Talk to your healthcare provider about your options if you have any questions. It is your choice to take LAGEVRIO. What is COVID-19? COVID-19 is caused by a virus called a coronavirus. You can get COVID-19 through close contact with another person who has the virus. COVID-19 illnesses have ranged from very frkr-cl-npuqfg, including illness resulting in . While information so far suggests that most COVID-19 illness is mild, serious illness can happen and may cause some of your other medical conditions to become worse. Older people and people of all ages with severe, long lasting (chronic) medical conditions like heart disease, lung disease and diabetes, for example seem to be at higher risk of being hospitalized for COVID-19. What is LAGEVRIO? LAGEVRIO is an investigational medicine used to treat adults with a current diagnosis of mild to moderate COVID-19: who are at high risk for progression to severe COVID-19 including hospitalization or , and for whom other COVID-19 treatment options approved or authorized by the FDA are not accessible or clinically appropriate. The FDA has authorized the emergency use of LAGEVRIO for the treatment of mild-tomoderate COVID-19 in adults under an EUA. For more information on EUA, see the What is an Emergency Use Authorization (EUA)? section at the end of this Fact Sheet. LAGEVRIO is not authorized: for use in people less than 18 years of age. for prevention of COVID-19. for people needing hospitalization for COVID-19. for use for longer than 5 consecutive days. What should I tell my healthcare provider before I take LAGEVRIO? Tell your healthcare provider if you: have any allergies are or plan to breastfeed have any serious illnesses Take any medicines including prescription, dpfh-gzv-cfqjueu medicines, vitamins, and herbal products. How do I take LAGEVRIO? Take LAGEVRIO exactly as your healthcare provider tells you to take it. Take 4 capsules of LAGEVRIO every 12 hours (for example, at 8 am and at 8 pm) Take LAGEVRIO for 5 days. It is important that you complete the full 5 days of treatment with LAGEVRIO. Do not stop taking LAGEVRIO before you complete the full 5 days of treatment, even if you feel better. Take LAGEVRIO with or without food. You should stay in isolation for as long as your healthcare provider tells you to. Talk to your healthcare provider if you are not sure about how to properly isolate while you have COVID-19. Swallow LAGEVRIO capsules whole. Do not open, break, or crush the capsules. If you cannot swallow capsules whole, tell your healthcare provider. If your healthcare provider prescribes LAGEVRIO and tells you to take or give a dose through a nasogastric (NG) or orogastric (OG) tube, follow the instructions below: How to take or give a dose of LAGEVRIO through a nasogastric (NG) or orogastric (OG) feeding tube. You must have an NG or OG that is size 12 [place]) or larger. If you miss a dose of LAGEVRIO: If it has been less than 10 hours since the missed dose, take it as soon as you remember. If it has been more than 10 hours since the missed dose, skip the missed dose and take your dose at the next scheduled time. Do not double the dose of LAGEVRIO to make up for a missed dose. How to take or give a dose of LAGEVRIO through a nasogastric (NG) or orogastric (OG) feeding tube: Wash your hands well with soap and water. Gather the supplies you will need to take or give the prescribed dose of LAGEVRIO. 4 LAGEVRIO capsules 1 liquid measuring cup with mL markings to measure 40 mL of room temperature water 1 clean container with a lid 1 catheter tip syringe. Your healthcare provider should tell you what size catheter tip syringe you will need to take or give a dose of LAGEVRIO. Place the needed supplies on a clean work surface. Follow your healthcare provider s instructions on how to flush the NG or OG feeding tube. Flush the NG or OG feeding tube with 5 mL of water before taking or giving a dose of LAGEVRIO. Carefully open 4 LAGEVRIO capsules, one at a time, and empty the contents into a clean container. Use the liquid measuring cup to measure 40 mL of room temperature water and add to the container containing the capsule contents. Place the lid on the container. Shake to mix the capsule contents and water well for 3 minutes. The capsule contents may not dissolve completely. Remove the lid from the container and draw up all the LAGEVRIO and water mixture into a catheter tip syringe. Give all of the mixture right away through the NG or OG feeding tube. Do not keep the mixture for future use. If any capsule contents are left in the container: Add 10 mL of water to the container, and mix to loosen any capsule contents that are left in the container. Use the catheter tip syringe to draw up all of the mixture in the container. Give the mixture through the NG or OG feeding tube. Repeat this process as needed until you no longer see any capsule contents left in the container or catheter tip syringe. Use the same catheter tip syringe to flush the NG or OG feeding tube 2 times with 5 mL of water (10mL total). Rinse the container, lid and catheter tip syringe well with clean water after use. Place on a clean paper towel until next use. What are the important possible side effects of LAGEVRIO? See, What is the most important information I should know about LAGEVRIO? Allergic Reactions. Allergic reactions can happen in people taking LAGEVRIO, even after only 1 dose. Stop taking LAGEVRIO and call your healthcare provider right away if you get any of the following symptoms of an allergic reaction: hives rapid heartbeat trouble swallowing or breathing swelling of the mouth, lips, or face throat tightness hoarseness skin rash The most common side effects of LAGEVRIO are: diarrhea nausea dizziness These are not all the possible side effects of LAGEVRIO. Not many people have taken LAGEVRIO. Serious and unexpected side effects may happen. This medicine is still being studied, so it is possible that all of the risks are not known at this time. What other treatment choices are there? Veklury (remdesivir) is FDA-approved as an intravenous (IV) infusion for the treatment of mildto-moderate COVID-19 in certain adults and children. Talk with your doctor to see if Veklury is appropriate for you. Like LAGEVRIO, FDA may also allow for the emergency use of other medicines to treat people with COVID-19. Go to https://www.fda.gov/emergency-pre pgovvnqdg-dbn-fmntfnsm/mcm-legalr krebzkkpk-nav-lhllwm-framework/em upaukfe-fns-hgvyaltaiigjf for more information. It is your choice to be treated or not to be treated with LAGEVRIO. Should you decide not to take it, it will not change your standard medical care. What if I am ? is not recommended during treatment with LAGEVRIO and for 4 days after the last dose of LAGEVRIO. If you are or plan to breastfeed, talk to your healthcare provider about your options and specific situation before taking LAGEVRIO. How do I report side effects with LAGEVRIO? Contact your healthcare provider if you have any side effects that bother you or do not go away. Report side effects to FDA MedWatch at www.fda.gov/medwatch or call 1-800-fda-1088 (1772.109.7937). How should I store LAGEVRIO? Store LAGEVRIO capsules at room temperature between 68 F to 77 F (20 C to 25 C). Keep LAGEVRIO and all medicines out of the reach of children. How can I learn more about COVID-19? Ask your healthcare provider. Visit www.cdc.gov/COVID19 Contact your local or state public health department. Call [employer] at (toll free in the [place] Visit www.OtherInbox What Is an Emergency Use Authorization (EUA)? The [place] FDA has made LAGEVRIO available under an emergency access mechanism called an Emergency Use Authorization (EUA) The EUA is supported by a [employer] Superintendent of Health and Human Service (HHS) declaration that circumstances exist to justify emergency use of drugs and biological products during the COVID-19 pandemic. LAGEVRIO for the treatment of adults with a current diagnosis of sgdu-hw-bdwakqjx COVID-19 who are at high risk for progression to severe COVID-19, including hospitalization or , and for whom alternative COVID-19 treatment options approved or authorized by FDA are not accessible or clinically appropriate, has not undergone the same type of review as an FDAapproved product. In issuing an EUA under the COVID-19 public health emergency, the FDA has determined, among other things, that based on the total amount of scientific evidence available including data from adequate and well-controlled clinical trials, if available, it is reasonable to believe that the product may be effective for diagnosing, treating, or preventing COVID-19, or a serious or life-threatening disease or condition caused by COVID-19; that the known and potential benefits of the product, when used to diagnose, treat, or prevent such disease or condition, outweigh the known and potential risks of such product; and that there are no adequate, approved, and available alternatives. All of these criteria must be met to allow for the product to be used in the treatment of patients during the COVID-19 pandemic. The EUA for LAGEVRIO is in effect for the duration of the COVID-19 declaration justifying emergency use of LAGEVRIO, unless terminated or revoked (after which LAGEVRIO may no longer be used under the EUA). Zhen. for: [employer] [address] For patent information: www.[employer] / HangPic/research/patent Copyright [employer] [place], [place], [facility] and its affiliates. All rights reserved. [id number] Revised: July 2022 documented in this encounter [facility] 11-21-2022 History of Present illness Narrative Patient presents with: Covid19 Concern: Fever, ST x today, positive exposure HPI: Feeling sick this afternoon after golfing. He then had 2 positive home COVID tests today. Positive symptoms: Sore throat, Fever, Fatigue, Negative symptoms: Cough, Shortness of breath, Body Aches, Headache, change in baseline shortness of breath OTC: has an inhaler. Had COVID booster in February. Exposed to his brother and his had COVID last week. MEDICATIONS: Current Outpatient Medications Medication Sig molnupiravir 200 mg capsule Take 4 capsules by mouth twice daily for 5 days. Geriatric Multivit w/Iron-Min (COMPLETE SENIOR) tab Take by mouth. atorvastatin (LIPITOR) 40 mg tablet Take 0.5 tablets by mouth daily at bedtime. lisinopril (ZESTRIL, PRINIVIL) 10 mg tablet Take 1 tablet by mouth once daily. fluticasone (FLONASE) 50 mcg/actuation nasal spray Use 2 Sprays in each nostril once daily. Rinse mouth after use. diphenhydrAMINE HCl 50 mg/30 mL liqd Take by mouth. guaiFENesin 1,200 mg Ta12 Take by mouth twice daily. benralizumab (FASENRA) 30 mg/mL injection Benralizumab (Fasenra) 30 mg/mL syringe Active 30 MG SC every 4 weeks July 13, 2020 11:24am montelukast (SINGULAIR) 10 mg tablet Take 10 mg by mouth daily at bedtime. TRELEGY ELLIPTA 100-62.5-25 mcg Inhale 1 Puff as instructed once daily. albuterol HFA (PROAIR HFA) 90 mcg/actuation inhaler Inhale 2 Puffs as instructed every 4 hours as needed (FOR COUGH OR WHEEZE). albuterol (PROVENTIL) 2.5 mg /3 mL (0.083 %) nebulizer solution Use 3 mL via nebulizer every 4 hours as needed for Wheezing/Shortness of Breath. Use over 5-15minutes. RESTASIS 0.05 % ophthalmic emulsion as needed. Nebulizer 1 Device three times daily. NEBULIZER FOR HOME USE. DX: copd exacerbation No current facility-administered medications for this visit. ALLERGIES: ALLERGIES No Known Allergies VITALS: BP 122/70 Pulse 104 Temp (!) 38 C (100.4 F) Resp 18 Wt 79.4 kg (175 lb) SpO2 93% BMI 26.61 kg/m PHYSICAL EXAM: GEN: Pleasant, in no acute distress. HEENT: PERRL, EOMI, conjunctiva clear Neck: supple, LUNGS: occasional raspy cough, no increased WOB ASSESSMENT/PLAN: 1. Acute COVID-19 - ICD9: 079.89, ICD10: U07.1 Prescribed - MOLNUPIRAVIR 200 MG CAPSULE (EUA) Follow up virtually with PCP if worsening or not improving. Tony Dubose MD Molnupiravir Eligibility and Patient Discussion [facility] Formulary Restriction Criteria: Adult outpatients 18 years and older with ALL of the following: [x] Patient has symptoms for 5 days or less [x] Not requiring hospitalization at any time for management of COVID-19 [x] Not requiring supplemental oxygen or a change in baseline supplemental oxygen [x] Not utilized for pre-exposure or post-exposure prophylaxis for prevention of COVID-19 [x] Patient is not or lactating [x] Meeting at least one of the criteria for high risk of progression to severe COVID-19: [x] Age over 65 years [x] Cancer [] Chronic kidney disease [] Chronic liver disease [x] Chronic lung diseases, including cystic fibrosis [] Dementia or other neurological conditions [] Diabetes (type 1 or type 2) [] Disabilities, including Down syndrome and neurodevelopmental disorders [] Heart conditions [] HIV infection [] Immunocompromised state [] Mental health conditions [] Medical related technological dependence (tracheostomy, gastrostomy, or positive pressure ventilation (not related to COVID) [] Overweight and obesity (BMI greater or equal to 25 for adults) [] Physical inactivity [] Sickle cell disease or thalassemia [] Smoking, current or former [] Solid organ or blood stem cell transplant [] Stroke or cerebrovascular disease [] Substance use disorders [] Tuberculosis [] People from racial and ethnic minority groups Criteria above are met: Yes Date of Symptom Onset: Patient received COVID vaccine: Yes / status reviewed: Females: [] Patient is not currently and there is no possibility the patient could be (select one of the following): [] test does not need to be confirmed in patients who have undergone permanent sterilization, are currently using an intrauterine system or contraceptive implant, or in whom is not possible. [] Patients not meeting conditions above: assess whether the patient is based on the first day of the last menstrual period in individuals who have regular menstrual cycles, is using reliable method of contraception correctly and consistently or have had a negative test [] A test is recommended if the individual has irregular menstrual cycles, is unsure of the first day of the last menstrual period or is not using effective contraception correctly and consistently [] Patient is not currently . is not recommended during treatment and for four days after final dose of molnupiravir. [] Females have been advised to use a reliable method of contraception correctly and consistently for the duration of treatment and for four days after the last dose of molnupiravir Males: [x] Sexually active male with partner(s) of childbearing potential has been advised to use a reliable method of contraception correctly and consistently for intercourse for the duration of treatment and for three months after the last dose of molnupiravir I have discussed the use of the investigational therapeutic, molnupiravir, for the treatment of mild to moderate COVID-19 and its use under Emergency Use Authorization with the patient. The patient was informed that molnupiravir is not an FDA approved drug and that it is authorized for use under this Emergency Use Authorization. The patient was also informed of the significant known benefits and potential risks of molnupiravir, and the extent to which such potential risks and benefits are unknown. The patient was informed that there is mandatory reporting of all medication errors and serious adverse events potentially related to molnupiravir treatment within 7 calendar days from the onset of the event and that events up to 28 days after completion of therapy need to be reported. The discussion included alternatives to receiving molnupiravir, including clinical trials, and potential the risks and benefits of those alternatives. The patient was provided electronically with the Fact Sheet for Patients, Parents and Caregivers . The patient was also instructed that in addition to the treatment with molnupiravir, he/she should continue to self-isolate and use infection control measures (e.g., wear mask, isolate, social distance, avoid sharing personal items, clean and disinfect high touch surfaces, and frequent handwashing) according to CDC guidelines. The patient stated understanding and gave verbal consent to proceeding with molnupiravir treatment. Tony Dubose MD November 21, 2022 5:37 PM documented in this encounter [facility] 11-07-2022 Note HNO ID: [id number] Author: Carlos Cantrell MD Service: ? Author Type: Physician Type: Progress Notes Filed: 11/07/2022 10:36 AM Note Text: ESTABLISHED PATIENT VISIT HPI Rikki Ojeda is a 77 year old male who presents with a history of prostate cancer. Initially cancer was found on transurethral resection of prostate specimen, [place] 6 in 70% of prostate chips MRI showed: No Lymphadenopathy 2 cm PI-RADS 5 lesion 0.7 cm PI-RADS 4 lesion 4 mm capsular area He underwent MRI fusion biopsy in September 2022 A. Prostate, left lateral base, core biopsy: - Benign prostatic tissue. B. Prostate, left lateral mid, core biopsy: - Benign prostatic tissue. C. Prostate, left lateral apex, core biopsy: - Benign prostatic tissue. D. Prostate, right lateral base, core biopsy: - Benign prostatic tissue. E. Prostate, right lateral mid, core biopsy: - Benign prostatic tissue. F. Prostate, right lateral apex, core biopsy: - Benign prostatic tissue. G. Prostate, right, lesion #1, core biopsy: - Prostatic acinar adenocarcinoma, [place] score 3+3 = 6 (grade group 1) involving three of three cores (65%, 7 mm, discontinuous involvement; 20%, 2 mm; 20%, 2 mm). See comment. H. Prostate, right, lesion #2, core biopsy: - Prostatic acinar adenocarcinoma, [place] score 3+4 = 7 (grade group 2) involving three of three cores (50%, 8 mm; 40%, 5 mm; 30%, 4 mm). See comment. - Percent pattern 4: 5%. - Large gland/expansile cribriform pattern 4 absent. Prostate Cancer Biopsy Summary Number of cores examined: 12 Number of cores positive: 6 Highest Grade Group: grade group 2 Highest % of core involvement: 65% Cribriform pattern 4: Absent Intraductal carcinoma: Absent Nonprofit Fundraiser tumor block to use for additional studies: H-2 Patient Entered Questionnaires PROMIS Global Health PROMIS Global Health Scale 07/31/2022 08/05/2022 11/05/2022 Physical Health Percentile 41 % 41 % 66 % Mental Health Percentile 53 % 53 % 43 % Percentiles provide an indication of how the patient's score ranks in relation to the general population. Higher percentile rankings indicate better function/quality of life. 50th percentile is the average of the general population and indicates half of respondents had a worse score. IPSS Score 03/03/2020 IPSS 13 (moderate symptoms) Creatinine Date Value Ref Range Status 01/08/2022 1.01 0.73 - 1.22 mg/dL Final PSA (ng/mL) Date Value 09/13/2022 3.76 06/27/2022 4.76 03/26/2022 3.63 01/08/2022 3.10 10/16/2021 3.50 06/05/2021 3.1 04/23/2016 3.77 01/19/2014 3.17 PSA Screening (ng/mL) Date Value 09/03/2013 3.08 Color (no units) Date Value 03/09/2021 Yellow 06/30/2019 Yellow Clarity (no units) Date Value 03/09/2021 Clear 06/30/2019 Clear Glucose, Urine Date Value 03/09/2021 Negative 06/30/2019 Negative mg/dL Bilirubin, Urine (no units) Date Value 03/09/2021 Negative 06/30/2019 Negative Ketones, Urine (no units) Date Value 03/09/2021 Negative 06/30/2019 Negative Specific Esmond, Ur (no units) Date Value 03/09/2021 1.007 06/30/2019 1.004 Hemoglobin/Blood,Ur Date Value 03/09/2021 Negative 06/30/2019 2+ pH, Urine (no units) Date Value 03/09/2021 6.0 06/30/2019 7.0 Protein, Urine Date Value 03/09/2021 Negative 06/30/2019 Negative mg/dL Urobilinogen (no units) Date Value 03/09/2021 0.2 EU/dL 06/30/2019 Normal Nitrites (no units) Date Value 03/09/2021 Negative 06/30/2019 Negative Leukest (no units) Date Value 06/30/2019 Negative Leuk Esterase (no units) Date Value 03/09/2021 Trace 24HR Urine Studies: No results for input(s): LUPH, LUCAL, LUCIT, LUOXA, LUURIC, LUVOL, LSCAO, LSCAP, LSURIC, LUCL, YAZMIN, MAT, LUUREA, LUAM, LUMAG, LUPHOS, LUPCR, LUCREA, LUCRKBW, LUCAKBW, LUCACREA, LUCREACL, LWK, LUSUL in the last [id number] hours. REVIEW OF SYSTEMS Review of Systems Constitutional: Negative for chills, fatigue, fever and unexpected weight change. HENT: Negative for sore throat and trouble swallowing. Eyes: Negative for visual disturbance. Respiratory: Negative for shortness of breath and wheezing. Cardiovascular: Negative for chest pain and leg swelling. Gastrointestinal: Negative for abdominal pain, blood in stool, diarrhea and nausea. Endocrine: Positive for polyuria. Genitourinary: Positive for decreased urine volume, difficulty urinating, frequency and urgency. Negative for dysuria, enuresis, flank pain and hematuria. Nocturia Intermittency straining Musculoskeletal: Negative for back pain. Skin: Negative for rash. Neurological: Negative for dizziness and headaches. Hematological: Does not bruise/bleed easily. Psychiatric/Behavioral: Negative for behavioral problems and confusion. Review of system, history including past medical history, surgical history, family history and social history reviewed and confirmed by me. HISTORIES PAST MEDICAL H (more content not included)... [facility] 10-26-2022 Note HNO ID: [id number] Author: Eve Daniel PA-C Service: ? Author Type: Physician Director Compliance Type: Progress Notes Filed: 10/26/2022 4:10 PM Note Text: 77 year old male with c/o notes discoloration of glans penis. Noted before prostate bx and wanted Dr. Cantrell to review. Aware of results. 10/10/2022 prostate bx FINAL DIAGNOSIS A. Prostate, left lateral base, core biopsy: - Benign prostatic tissue. B. Prostate, left lateral mid, core biopsy: - Benign prostatic tissue. C. Prostate, left lateral apex, core biopsy: - Benign prostatic tissue. D. Prostate, right lateral base, core biopsy: - Benign prostatic tissue. E. Prostate, right lateral mid, core biopsy: - Benign prostatic tissue. F. Prostate, right lateral apex, core biopsy: - Benign prostatic tissue. G. Prostate, right, lesion #1, core biopsy: - Prostatic acinar adenocarcinoma, [place] score 3+3 = 6 (grade group 1) involving three of three cores (65%, 7 mm, discontinuous involvement; 20%, 2 mm; 20%, 2 mm). See comment. H. Prostate, right, lesion #2, core biopsy: - Prostatic acinar adenocarcinoma, [place] score 3+4 = 7 (grade group 2) involving three of three cores (50%, 8 mm; 40%, 5 mm; 30%, 4 mm). See comment. - Percent pattern 4: 5%. - Large gland/expansile cribriform pattern 4 absent. Prostate Cancer Biopsy Summary Number of cores examined: 12 Number of cores positive: 6 Highest Grade Group: grade group 2 Highest % of core involvement: 65% Cribriform pattern 4: Absent Intraductal carcinoma: Absent Nonprofit Fundraiser tumor block to use for additional studies: H-2 HISTORIES FAMILY HISTORY Problem Relation Age of Onset Heart Mother Stroke Mother Heart Father Stroke Father Hemorrhagic, age 73 yo. Asthma Grandchild PAST MEDICAL HISTORY Diagnosis Date Abnormal EKG 03/21/2018 incomplete RBBB Actinic keratosis Acute respiratory failure with hypoxemia (HCC) 09/24/2019 Back pain Benign neoplasm of skin of trunk, except scrotum Condyloma acuminatum COPD (chronic obstructive pulmonary disease) (HCC) multiple inhalers, uses O2 3L hs HLD (hyperlipidemia) HTN (hypertension) Lipoma of other skin and subcutaneous tissue Lump or mass in breast Neoplasm of uncertain behavior of skin Other chronic dermatitis due to solar radiation Other disorders of bone and cartilage(733.99) Perichondritis of pinna, unspecified Personal history of other malignant neoplasm of skin Scar condition and fibrosis of skin Snoring Viral warts, unspecified PAST SURGICAL HISTORY Procedure Laterality Date ARTHRP KNE CONDYLEANDPLATU MEDIALANDLAT COMPARTMENTS 04/21/2012 right total knee COLONOSCOPY FLX DX W/COLLJ SPEC WHEN PFRMD 10/04/2014 Colonoscopy LITHOTRIPSY XTRCORP SHOCK WAVE Left 06/2019 PAST SURGICAL HISTORY OF 1969' left knee arthroscopy PAST SURGICAL HISTORY OF 12/2019 UroLift Prostatic REM LESION NEC,HND,SCAL 0.6-1.0CM 10/25/2007 Exc. SC mass left breast Social History Tobacco Use Smoking status: Former Packs/day: 2.00 Years: 50.00 Pack years: 100.00 Types: Cigarettes Quit date: 05/22/2016 Years since quittin.4 Smokeless tobacco: Former Tobacco comments: Currently down to 0.5 PPD, 11/16/14. TO Substance Use Topics Alcohol use: No Drug use: No ACTIVE PROBLEM LIST Personal History of Other Malignant Neoplasm of Skin Spinal Stenosis of Lumbar Region Copd (Chronic Obstructive Pulmonary Disease) (Hcc) Actinic Keratosis (Premalignant AK) Actinic Damage//Sun-Damaged Skin Seborrheic Keratosis Lipoma of Skin and Subcutaneous Tissue Angiolipoma Solar Lentigines Migraine Hyperlipidemia Benign Prostatic Hyperplasia Allergic Rhinitis Erectile Dysfunction Nocturia Frequency of Urination Elevated Psa Microscopic Hematuria Smoking History Arthritis of Shoulder Region, Left Benign Atrial Arrhythmia 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 atorvastatin (LIPITOR) 40 mg tablet Take 0.5 tablets by mouth daily at bedtime. 45 tablet 1 lisinopril (ZESTRIL, PRINIVIL) 10 mg tablet Take 1 tablet by mouth once daily. 90 tablet 1 fluticasone (FLONASE) 50 mcg/actuation nasal spray Use 2 Sprays in each nostril once daily. Rinse mouth after use. 3 Each 3 guaiFENesin 1,200 mg Ta12 Take by mouth twice daily. benralizumab (FASENRA) 30 mg/mL injection Benralizumab (Fasenra) 30 mg/mL syringe Active 30 MG SC every 4 weeks 1 July 13, 2020 11:24am montelukast (SINGULAIR) 10 mg tablet Take 10 mg by mouth daily at bedtime. TRELEGY ELLIPTA 100-62.5-25 mcg Inhale 1 Puff as instructed once daily. albuterol HFA (PROAIR HFA) 90 mcg/actuation inhaler Inhale 2 Puffs as instructed every 4 hours as needed (FOR COUGH OR WHEEZ (more content not included)... [facility] 10-26-2022 History of Present illness Narrative 77 year old male with c/o notes discoloration of glans penis. Noted before prostate bx and wanted Dr. Cantrell to review. Aware of results. 10/10/2022 prostate bx FINAL DIAGNOSIS A. Prostate, left lateral base, core biopsy: - Benign prostatic tissue. B. Prostate, left lateral mid, core biopsy: - Benign prostatic tissue. C. Prostate, left lateral apex, core biopsy: - Benign prostatic tissue. D. Prostate, right lateral base, core biopsy: - Benign prostatic tissue. E. Prostate, right lateral mid, core biopsy: - Benign prostatic tissue. F. Prostate, right lateral apex, core biopsy: - Benign prostatic tissue. G. Prostate, right, lesion #1, core biopsy: - Prostatic acinar adenocarcinoma, [place] score 3+3 = 6 (grade group 1) involving three of three cores (65%, 7 mm, discontinuous involvement; 20%, 2 mm; 20%, 2 mm). See comment. H. Prostate, right, lesion #2, core biopsy: - Prostatic acinar adenocarcinoma, [place] score 3+4 = 7 (grade group 2) involving three of three cores (50%, 8 mm; 40%, 5 mm; 30%, 4 mm). See comment. - Percent pattern 4: 5%. - Large gland/expansile cribriform pattern 4 absent. Prostate Cancer Biopsy Summary Number of cores examined: 12 Number of cores positive: 6 Highest Grade Group: grade group 2 Highest % of core involvement: 65% Cribriform pattern 4: Absent Intraductal carcinoma: Absent Nonprofit Fundraiser tumor block to use for additional studies: H-2 HISTORIES FAMILY HISTORY Problem Relation Age of Onset Heart Mother Stroke Mother Heart Father Stroke Father Hemorrhagic, age 73 yo. Asthma Grandchild PAST MEDICAL HISTORY Diagnosis Date Abnormal EKG 03/21/2018 incomplete RBBB Actinic keratosis Acute respiratory failure with hypoxemia (HCC) 09/24/2019 Back pain Benign neoplasm of skin of trunk, except scrotum Condyloma acuminatum COPD (chronic obstructive pulmonary disease) (HCC) multiple inhalers, uses O2 3L hs HLD (hyperlipidemia) HTN (hypertension) Lipoma of other skin and subcutaneous tissue Lump or mass in breast Neoplasm of uncertain behavior of skin Other chronic dermatitis due to solar radiation Other disorders of bone and cartilage(733.99) Perichondritis of pinna, unspecified Personal history of other malignant neoplasm of skin Scar condition and fibrosis of skin Snoring Viral warts, unspecified PAST SURGICAL HISTORY Procedure Laterality Date ARTHRP KNE CONDYLE&PLATU MEDIAL&LAT COMPARTMENTS 04/21/2012 right total knee COLONOSCOPY FLX DX W/COLLJ SPEC WHEN PFRMD 10/04/2014 Colonoscopy LITHOTRIPSY XTRCORP SHOCK WAVE Left 06/2019 PAST SURGICAL HISTORY OF left knee arthroscopy PAST SURGICAL HISTORY OF 12/2019 UroLift Prostatic REM LESION NEC,HND,SCAL 0.6-1.0CM 10/25/2007 Exc. SC mass left breast Social History Tobacco Use Smoking status: Former Packs/day: 2.00 Years: 50.00 Pack years: 100.00 Types: Cigarettes Quit date: 05/22/2016 Years since quittin.4 Smokeless tobacco: Former Tobacco comments: Currently down to 0.5 PPD, 11/16/14. TO Substance Use Topics Alcohol use: No Drug use: No ACTIVE PROBLEM LIST Personal History of Other Malignant Neoplasm of Skin Spinal Stenosis of Lumbar Region Copd (Chronic Obstructive Pulmonary Disease) (Hcc) Actinic Keratosis (Premalignant AK) Actinic Damage//Sun-Damaged Skin Seborrheic Keratosis Lipoma of Skin and Subcutaneous Tissue Angiolipoma Solar Lentigines Migraine Hyperlipidemia Benign Prostatic Hyperplasia Allergic Rhinitis Erectile Dysfunction Nocturia Frequency of Urination Elevated Psa Microscopic Hematuria Smoking History Arthritis of Shoulder Region, Left Benign Atrial Arrhythmia 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 atorvastatin (LIPITOR) 40 mg tablet Take 0.5 tablets by mouth daily at bedtime. 45 tablet 1 lisinopril (ZESTRIL, PRINIVIL) 10 mg tablet Take 1 tablet by mouth once daily. 90 tablet 1 fluticasone (FLONASE) 50 mcg/actuation nasal spray Use 2 Sprays in each nostril once daily. Rinse mouth after use. 3 Each 3 guaiFENesin 1,200 mg Ta12 Take by mouth twice daily. benralizumab (FASENRA) 30 mg/mL injection Benralizumab (Fasenra) 30 mg/mL syringe Active 30 MG SC every 4 weeks 1 0 July 13, 2020 11:24am montelukast (SINGULAIR) 10 mg tablet Take 10 mg by mouth daily at bedtime. TRELEGY ELLIPTA 100-62.5-25 mcg Inhale 1 Puff as instructed once daily. albuterol HFA (PROAIR HFA) 90 mcg/actuation inhaler Inhale 2 Puffs as instructed every 4 hours as needed (FOR COUGH OR WHEEZE). 3 Inhaler 1 albuterol (PROVENTIL) 2.5 mg /3 mL (0.083 %) nebulizer solution Use 3 mL via nebulizer every 4 hours as needed for Wheezing/Shortness of Breath. Use over 5-15minutes. 1 Package 11 RESTASIS 0.05 % ophthalmic emulsion as needed. Nebulizer 1 Device three times daily. NEBULIZER FOR HOME USE. DX: copd exacerbation 1 Device 0 diphenhydrAMINE HCl 50 mg/30 mL liqd Take by mouth. (Patient not taking: Reported on 10/10/2022) No current facility-administered medications for this visit. BP CONTROLLED (<130/80) Never done LUNG CANCER SCREENING due on 12/02/2021 EXAM: BP 114/66 Pulse 85 Wt 79.8 kg (176 lb) SpO2 95% BMI 26.76 kg/m Pleasant well appearing adult male in no acute distress. Alert and oriented all spheres. Normal affect and cognition. Speech normal. No deficits to learning or comprehension. Skin warm, dry, pink to lips and nailbeds. Normal turgor. Respirations regular and unlabored. Uncircumcised penis, glans penis with a 5-6 darker pink macular spots, no irritation or tenderness ASSESSMENT/PLAN: 1. Rash of penis - ICD9: 607.9, ICD10: R21 (primary diagnosis) Suspect possible mechanical irritation/ atopic rash or possible candidal Follow with urologist Trial rx over 7-10 days. - NYSTATIN-TRIAMCINOLONE 100,000 UNIT/GRAM-0.1 % TOPICAL OINTMENT 2. Carcinoma of prostate (HCC) - ICD9: 185, ICD10: C61 Following with urology Eve Daniel PA-C Some of this note may have been copied and pasted for the purpose of history context and comparison. documented in this encounter [facility] 10-22-2022 Miscellaneous Notes Spoke to pt and he is scheduled and aware of location. Bernice SCRUGGS Please call pt 11/07/22 at 9:45 in [place] Thank you Beth Fallon CMA ----- Message from Carlos Cantrell MD sent at 10/21/2022 10:22 AM EDT ----- Can you make appt for pt to see me in next week or two documented in this encounter [facility] 10-04-2022 Miscellaneous Notes Pt is scheduled for MRI Fusion Bx MAC with Dr Watson at [facility] on 10/10/22 @ 1:15 (11:[address] Cantrell will call with results. Pt given date, time, prep and arrival instructions over the phone on 10/04/22. Pt and given written info in person on 09/18/22. Patito SCRUGGS documented in this encounter [facility] 09-18-2022 Note HNO ID: [id number] Author: Rikki Watson MD Service: ? Author Type: Physician Type: Progress Notes Filed: 09/20/2022 8:33 AM Note Text: ESTABLISHED PATIENT OFFICE VISIT PATIENT INFO: Rikki Ojeda 77 year old HPI 09/18/2022 CC: bx MRI done at [facility] and images are scanned in Presents with He is on no blood thinners Cancer was found on TURP--[place] 6 and 70% of prostate chips He would like MRI fusion biopsy under twilight He understands might need to bring disc if we cannot process present image properly and time of biopsy could fluctuate depending on schedule and they are fine with that Past Urology Hx: January 22, 2022-seen by Dr. Cantrell- 76 year old male who presents with low risk prostate cancer. He underwent TURP and was found to have incidental prostate cancer on path specimen PSA has remained very stable Voiding well, no complaints No hematuria, no abdominal pain, no flank pain Creatinine Date Value Ref Range Status 01/08/2022 1.01 0.73 - 1.22 mg/dL Final PSA (ng/mL) Date Value 09/13/2022 3.76 06/27/2022 4.76 03/26/2022 3.63 01/08/2022 3.10 10/16/2021 3.50 06/05/2021 3.1 04/23/2016 3.77 01/19/2014 3.17 PSA Screening (ng/mL) Date Value 09/03/2013 3.08 Color (no units) Date Value 03/09/2021 Yellow 06/30/2019 Yellow Clarity (no units) Date Value 03/09/2021 Clear 06/30/2019 Clear Glucose, Urine Date Value 03/09/2021 Negative 06/30/2019 Negative mg/dL Bilirubin, Urine (no units) Date Value 03/09/2021 Negative 06/30/2019 Negative Ketones, Urine (no units) Date Value 03/09/2021 Negative 06/30/2019 Negative Specific E[place], Ur (no units) Date Value 03/09/2021 1.007 06/30/2019 1.004 Hemoglobin/Blood,Ur Date Value 03/09/2021 Negative 06/30/2019 2+ pH, Urine (no units) Date Value 03/09/2021 6.0 06/30/2019 7.0 Protein, Urine Date Value 03/09/2021 Negative 06/30/2019 Negative mg/dL Urobilinogen (no units) Date Value 03/09/2021 0.2 EU/dL 06/30/2019 Normal Nitrites (no units) Date Value 03/09/2021 Negative 06/30/2019 Negative Leukest (no units) Date Value 06/30/2019 Negative Leuk Esterase (no units) Date Value 03/09/2021 Trace Review of Systems Constitutional: Negative. HENT: Negative. Eyes: Negative. Respiratory: Positive for shortness of breath. Off and on Cardiovascular: Negative. Gastrointestinal: Negative. Endocrine: Negative. Genitourinary: See HPI Musculoskeletal: Negative. Skin: Negative. Allergic/Immunologic: Negative. Neurological: Negative. Hematological: Negative. Psychiatric/Behavioral: Negative. I reviewed and confirmed ROS obtained by [facility] HISTORIES PAST MEDICAL HISTORY Diagnosis Date Abnormal EKG 03/21/2018 incomplete RBBB Actinic keratosis Acute respiratory failure with hypoxemia (HCC) 09/24/2019 Back pain Benign neoplasm of skin of trunk, except scrotum Condyloma acuminatum COPD (chronic obstructive pulmonary disease) (HCC) HLD (hyperlipidemia) HTN (hypertension) Lipoma of other skin and subcutaneous tissue Lump or mass in breast Neoplasm of uncertain behavior of skin Other chronic dermatitis due to solar radiation Other disorders of bone and cartilage(733.99) Perichondritis of pinna, unspecified Personal history of other malignant neoplasm of skin Scar condition and fibrosis of skin Snoring Viral warts, unspecified FAMILY HISTORY Problem Relation Age of Onset Heart Mother Stroke Mother Heart Father Stroke Father Hemorrhagic, age 73 yo. Asthma Grandchild SOCIAL HISTORY Social History Tobacco Use Smoking status: Former Packs/day: 2.00 Years: 50.00 Pack years: 100.00 Types: Cigarettes Quit date: 05/22/2016 Years since quittin.3 Smokeless tobacco: Former Tobacco comments: Currently down to 0.5 PPD, 11/16/14. TO Substance Use Topics Alcohol use: No Drug use: No MEDICATIONS: atorvastatin (LIPITOR) 40 mg tablet Take 0.5 tablets by mouth daily at bedtime. lisinopril (ZESTRIL, PRINIVIL) 10 mg tablet Take 1 tablet by mouth once daily. fluticasone (FLONASE) 50 mcg/actuation nasal spray Use 2 Sprays in each nostril once daily. Rinse mouth after use. diphenhydrAMINE HCl 50 mg/30 mL liqd Take by mouth. guaiFENesin 1,200 mg Ta12 Take by mouth twice daily. benralizumab (FASENRA) 30 mg/mL injection Benralizumab (Fasenra) 30 mg/mL syringe Active 30 MG SC every 4 weeks 1 July 13, 2020 11:24am montelukast (SINGULAIR) 10 mg tablet Take 10 mg by mouth daily at bedtime. TRELEGY ELLIPTA 100-62.5-25 mcg Inhale 1 Puff as instructed once daily. albuterol (PROVENTIL) 2.5 mg /3 mL (0.083 %) nebulizer solution Use 3 mL via nebulizer every 4 hours as needed for Wheezing/Shortness of Breath. Use over 5-15minutes. RESTASIS 0.05 % ophthalmic emulsion as needed. albuterol HFA (PROAIR HFA) 90 mcg/actuation inhaler Inhale 2 Puffs as instructed every 4 hours (more content not included)... [facility] 08-07-2022 Note HNO ID: [id number] Author: Eve Daniel PA-C Service: ? Author Type: Physician Director Compliance Type: Progress Notes Filed: 08/07/2022 1:09 PM Note Text: 77 year old male with c/o here for follow up HTN: Current meds: Lisinopril 10mg daily Patient is compliant with meds Yes Monitors bp at home: No. If yes, readings: Denies side effects: No. Chest pain: continues with once in awhile gets a momentary < 10 sec, dull pain. Maybe twice in a week in last 2 months. More often when sitting Dyspnea: No. Edema: No. Palpitations: No. Syncope: No. Headache: No. Dizziness: No. Hyperlipidemia: Current medication Atorvastatin 40mg Taking medication consistently Yes Observing low cholesterol high fiber diet Yes Muscle aches No Stomach complaints/ diarrhea No Last 2 Lipids: Component Latest Ref Rng AND Units 01/27/2021 01/08/2022 Protein, Total 6.3 - 8.0 g/dL 6.8 6.9 Albumin 3.9 - 4.9 g/dL 4.1 4.4 Calcium 8.5 - 10.2 mg/dL 9.6 9.9 Bilirubin, Total 0.2 - 1.3 mg/dL 0.7 0.6 Alkaline Phosphatase 38 - 113 U/L 60 67 AST 14 - 40 U/L 22 16 Glucose 74 - 99 mg/dL 90 92 BUN 9 - 24 mg/dL 17 15 Creatinine 0.73 - 1.22 mg/dL 0.97 1.01 Sodium 136 - 144 mmol/L 143 142 Potassium 3.7 - 5.1 mmol/L 4.0 4.3 Chloride 97 - 105 mmol/L 106 (H) 107 (H) CO2 22 - 30 mmol/L 27 26 Anion Gap 9 - 18 mmol/L 10 9 ALT 10 - 54 U/L 18 11 eGFR- >60 eGFR-All Other Races . >60 eGFR >=60 mL/min/1.73m? 78 Cholesterol, Total <200 mg/dL 139 154 Triglyceride <150 mg/dL 40 53 HDL Cholesterol >39 mg/dL 61 62 LDL Cholesterol <100 mg/dL 70 81 Non HDL Cholesterol <130 mg/dL 78 92 Fasting Time hrs 9 12 VLDL Cholesterol <30 mg/dL 8 11 TC:HDL Ratio <5.10 2.28 2.48 LDL:HDL Ratio <2.54 1.15 1.31 Vamp Seamer: Dr. Castrejon [facility]. Has f/u next month 06/29/2022 last visit Felix Hendrix.CUSTOMER SERVICE ASSOCIATE:stable on meds, smoking cessation, f/u CT lung cancer screening. Interval history: 12/04/[address] cancer screening: no suspicious Current medications: Benralizumab 30mg/mL SC [id number] Montelukast 10mg 10mg qHS Trelegy Ellipta 100-62.5-25 one puss daily Albuterol 90mcg/actuation inhaler 2 puffs q4h prn Worsening shortness of breath: Yes. Cough: Yes. Wheezing: Yes. Smoking: Yes. Compliant with medications: Yes. Using rescue inhaler: none. Exercise tolerance not enough , able to pretty much do what he wants. 07/31/2022 MRI [facility]: 01/22/2022 urology f/u Dr. Villeda: stable 05/09/21 Pathology from [facility] showed incidental prostatic adenocarcinoma, total [place] score 3+3 = 6. Grade group 1. Carcinoma involves approximately 70% of the prostate chips. Perineural invasion. Follows with Dr. Carlos Villeda. Plan: MRI, US guide prostate bx. Q3,6 month PSA PSA stable PSA (ng/mL) Date Value 06/27/2022 4.76 03/26/2022 3.63 01/08/2022 3.10 10/16/2021 3.50 06/05/2021 3.1 04/23/2016 3.77 01/19/2014 3.17 PSA Screening (ng/mL) Date Value 09/03/2013 3.08 HISTORIES FAMILY HISTORY Problem Relation Age of Onset Heart Mother Stroke Mother Heart Father Stroke Father Hemorrhagic, age 73 yo. Asthma Grandchild PAST MEDICAL HISTORY Diagnosis Date Abnormal EKG 03/21/2018 incomplete RBBB Actinic keratosis Acute respiratory failure with hypoxemia (HCC) 09/24/2019 Back pain Benign neoplasm of skin of trunk, except scrotum Condyloma acuminatum COPD (chronic obstructive pulmonary disease) (HCC) HLD (hyperlipidemia) HTN (hypertension) Lipoma of other skin and subcutaneous tissue Lump or mass in breast Neoplasm of uncertain behavior of skin Other chronic dermatitis due to solar radiation Other disorders of bone and cartilage(733.99) Perichondritis of pinna, unspecified Personal history of other malignant neoplasm of skin Scar condition and fibrosis of skin Snoring Viral warts, unspecified PAST SURGICAL HISTORY Procedure Laterality Date ARTHRP KNE CONDYLEANDPLATU MEDIALANDLAT COMPARTMENTS 04/21/2012 R knee. COLONOSCOPY FLX DX W/COLLJ SPEC WHEN PFRMD 10/04/2014 Colonoscopy LITHOTRIPSY XTRCORP SHOCK WAVE Left 06/2019 PAST SURGICAL HISTORY OF 1969's left knee arthroscopy PAST SURGICAL HISTORY OF 12/2019 UroLift Prostatic REM LESION NEC,HND,SCAL 0.6-1.0CM 10/25/2007 Exc. SC mass left breast Social History Tobacco Use Smoking status: Former Packs/day: 2.00 Years: 50.00 Pack years: 100.00 Types: Cigarettes Quit date: 05/22/2016 Years since quittin.2 Smokeless tobacco: Former Tobacco comments: Currently down to 0.5 PPD, 11/16/14. TO Substance Use Topics Alcohol use: No Drug use: No ACTIVE PROBLEM LIST Personal History of Other Malignant Neoplasm of Skin Spinal Stenosis of Lumbar Region Copd (Chronic Obstructive Pulmonary Disease) (Hcc) Actinic Keratosis (Premalignant AK) Actinic Damage//Sun-Damaged Skin Seborrheic Keratosis Lipoma of Skin and Subcutaneous Tissue Angiolipoma Solar Lentigines Migraine Hyperlipidemia (more content not included)... [facility] 08-07-2022 History of Present illness Narrative 77 year old male with c/o here for follow up HTN: Current meds: Lisinopril 10mg daily Patient is compliant with meds Yes Monitors bp at home: No. If yes, readings: Denies side effects: No. Chest pain: continues with once in awhile gets a momentary < 10 sec, dull pain. Maybe twice in a week in last 2 months. More often when sitting Dyspnea: No. Edema: No. Palpitations: No. Syncope: No. Headache: No. Dizziness: No. Hyperlipidemia: Current medication Atorvastatin 40mg Taking medication consistently Yes Observing low cholesterol high fiber diet Yes Muscle aches No Stomach complaints/ diarrhea No Last 2 Lipids: Component Latest Ref Rng & Units 01/27/2021 01/08/2022 Protein, Total 6.3 - 8.0 g/dL 6.8 6.9 Albumin 3.9 - 4.9 g/dL 4.1 4.4 Calcium 8.5 - 10.2 mg/dL 9.6 9.9 Bilirubin, Total 0.2 - 1.3 mg/dL 0.7 0.6 Alkaline Phosphatase 38 - 113 U/L 60 67 AST 14 - 40 U/L 22 16 Glucose 74 - 99 mg/dL 90 92 BUN 9 - 24 mg/dL 17 15 Creatinine 0.73 - 1.22 mg/dL 0.97 1.01 Sodium 136 - 144 mmol/L 143 142 Potassium 3.7 - 5.1 mmol/L 4.0 4.3 Chloride 97 - 105 mmol/L 106 (H) 107 (H) CO2 22 - 30 mmol/L 27 26 Anion Gap 9 - 18 mmol/L 10 9 ALT 10 - 54 U/L 18 11 eGFR- >60 eGFR-All Other Races . >60 eGFR >=60 mL/min/1.73m 78 Cholesterol, Total <200 mg/dL 139 154 Triglyceride <150 mg/dL 40 53 HDL Cholesterol >39 mg/dL 61 62 LDL Cholesterol <100 mg/dL 70 81 Non HDL Cholesterol <130 mg/dL 78 92 Fasting Time hrs 9 12 VLDL Cholesterol <30 mg/dL 8 11 TC:HDL Ratio <5.10 2.28 2.48 LDL:HDL Ratio <2.54 1.15 1.31 Vamp Seamer: Dr. Castrejon [facility]. Has f/u next month 06/29/2022 last visit Felix Hendrix.CUSTOMER SERVICE ASSOCIATE:stable on meds, smoking cessation, f/u CT lung cancer screening. Interval history: 12/04/[address] cancer screening: no suspicious Current medications: Benralizumab 30mg/mL SC [id number] Montelukast 10mg 10mg qHS Trelegy Ellipta 100-62.5-25 one puss daily Albuterol 90mcg/actuation inhaler 2 puffs q4h prn Worsening shortness of breath: Yes. Cough: Yes. Wheezing: Yes. Smoking: Yes. Compliant with medications: Yes. Using rescue inhaler: none. Exercise tolerance not enough , able to pretty much do what he wants. 07/31/2022 MRI [facility]: 01/22/2022 urology f/u Dr. Villeda: stable 05/09/21 Pathology from [facility] showed incidental prostatic adenocarcinoma, total [place] score 3+3 = 6. Grade group 1. Carcinoma involves approximately 70% of the prostate chips. Perineural invasion. Follows with Dr. Carlos Villeda. Plan: MRI, US guide prostate bx. Q3,6 month PSA PSA stable PSA (ng/mL) Date Value 06/27/2022 4.76 03/26/2022 3.63 01/08/2022 3.10 10/16/2021 3.50 06/05/2021 3.1 04/23/2016 3.77 01/19/2014 3.17 PSA Screening (ng/mL) Date Value 09/03/2013 3.08 HISTORIES FAMILY HISTORY Problem Relation Age of Onset Heart Mother Stroke Mother Heart Father Stroke Father Hemorrhagic, age 73 yo. Asthma Grandchild PAST MEDICAL HISTORY Diagnosis Date Abnormal EKG 03/21/2018 incomplete RBBB Actinic keratosis Acute respiratory failure with hypoxemia (HCC) 09/24/2019 Back pain Benign neoplasm of skin of trunk, except scrotum Condyloma acuminatum COPD (chronic obstructive pulmonary disease) (HCC) HLD (hyperlipidemia) HTN (hypertension) Lipoma of other skin and subcutaneous tissue Lump or mass in breast Neoplasm of uncertain behavior of skin Other chronic dermatitis due to solar radiation Other disorders of bone and cartilage(733.99) Perichondritis of pinna, unspecified Personal history of other malignant neoplasm of skin Scar condition and fibrosis of skin Snoring Viral warts, unspecified PAST SURGICAL HISTORY Procedure Laterality Date ARTHRP KNE CONDYLE&PLATU MEDIAL&LAT COMPARTMENTS 04/21/2012 R knee. COLONOSCOPY FLX DX W/COLLJ SPEC WHEN PFRMD 10/04/2014 Colonoscopy LITHOTRIPSY XTRCORP SHOCK WAVE Left 06/2019 PAST SURGICAL HISTORY OF left knee arthroscopy PAST SURGICAL HISTORY OF 12/2019 UroLift Prostatic REM LESION NEC,HND,SCAL 0.6-1.0CM 10/25/2007 Exc. SC mass left breast Social History Tobacco Use Smoking status: Former Packs/day: 2.00 Years: 50.00 Pack years: 100.00 Types: Cigarettes Quit date: 05/22/2016 Years since quittin.2 Smokeless tobacco: Former Tobacco comments: Currently down to 0.5 PPD, 11/16/14. TO Substance Use Topics Alcohol use: No Drug use: No ACTIVE PROBLEM LIST Personal History of Other Malignant Neoplasm of Skin Spinal Stenosis of Lumbar Region Copd (Chronic Obstructive Pulmonary Disease) (Hcc) Actinic Keratosis (Premalignant AK) Actinic Damage//Sun-Damaged Skin Seborrheic Keratosis Lipoma of Skin and Subcutaneous Tissue Angiolipoma Solar Lentigines Migraine Hyperlipidemia Benign Prostatic Hyperplasia Allergic Rhinitis Erectile Dysfunction Nocturia Frequency of Urination Elevated Psa Microscopic Hematuria Smoking History Arthritis of Shoulder Region, Left Benign Atrial Arrhythmia 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 45 tablet 1 lisinopril (ZESTRIL, PRINIVIL) 10 mg tablet Take 1 tablet by mouth once daily. 90 tablet 1 diphenhydrAMINE HCl 50 mg/30 mL liqd Take by mouth. guaiFENesin 1,200 mg Ta12 Take by mouth twice daily. benralizumab (FASENRA) 30 mg/mL injection Benralizumab (Fasenra) 30 mg/mL syringe Active 30 MG SC every 4 weeks 1 July 13, 2020 11:24am montelukast (SINGULAIR) 10 mg tablet Take 10 mg by mouth daily at bedtime. TRELEGY ELLIPTA 100-62.5-25 mcg Inhale 1 Puff as instructed once daily. albuterol HFA (PROAIR HFA) 90 mcg/actuation inhaler Inhale 2 Puffs as instructed every 4 hours as needed (FOR COUGH OR WHEEZE). 3 Inhaler 1 albuterol (PROVENTIL) 2.5 mg /3 mL (0.083 %) nebulizer solution Use 3 mL via nebulizer every 4 hours as needed for Wheezing/Shortness of Breath. Use over 5-15minutes. 1 Package 11 RESTASIS 0.05 % ophthalmic emulsion as needed. Nebulizer 1 Device three times daily. NEBULIZER FOR HOME USE. DX: copd exacerbation 1 Device 0 No current facility-administered medications for this visit. BP CONTROLLED (<130/80) Never done LUNG CANCER SCREENING due on 12/02/2021 ADVANCE DIRECTIVE DISCUSSION due on 06/24/2022 DEPRESSION ASSESSMENT Never done EXAM: BP 132/74 Pulse 107 Resp 18 Wt 82.6 kg (182 lb) SpO2 93% BMI 27.67 kg/m Pleasant well appearing older man in no acute distress. Alert and oriented all spheres. Normal affect and cognition. Speech normal. No deficits to learning or comprehension. Skin warm, dry, pink to lips and nailbeds. Normal turgor. Respirations regular and unlabored. Eyes: sclerae and conjunctivae without injection or exudate, PERRLA, EOMI, corneal light reflex symmetric bilaterally Ears: TM's are clear/ bhatt bilaterally with normal landmarks, no swelling or deformity ear canal or external ear Nose/Sinuses: Nose patent. No turbinate swelling. Active exudate: none. Maxillary and frontal sinuses nontender to percussion. Oropharynx: oral membranes are moist. Lips, mucosa, and tongue free from lesions. Gums without inflammation. Posterior pharynx no injection, no exudate, no tonsillar hypertrophy. Neck: Neck supple, no lymphadenopathy; thyroid without mass or tenderness. Chest: normally shaped, equal expansion with breaths. Lungs: Lungs clear to auscultation and percussion. No crackles or wheezes. Heart: RRR without murmur, gallop, or rubs. S1 and S2 normal. Chest is normal shape. Lungs are clear to all ralph with good air exchange through out. HRRR without murmur or gallop. No lifts, heaves, or rubs. Extrem: no clubbing or cyanosis. Edema: none. Extremities are warm and pink with prompt capillary refill. ASSESSMENT/PLAN: 1. Chronic obstructive pulmonary disease, unspecified COPD type (HCC) - ICD9: 496, ICD10: J44.9 (primary diagnosis) Stable, follows wit pulmonary Managing well: continue current medications 2. Mixed hyperlipidemia - ICD9: 272.2, ICD10: E78.2 - good control - Continue current medication. - Encouraged following a low fat, low cholesterol diet. - Discussed the benefits of regular aerobic exercise and weight loss. - Encouraged following a low carbohydrate, healthy oil intake diet. - ATORVASTATIN 40 MG TABLET - LIPID PANEL BASIC - CBC + DIFF 3. Hypertension, unspecified type - ICD9: 401.9, ICD10: I10 - good control - Continue current medication(s) - Recommended regular aerobic exercise. - Recommend home blood pressure monitoring, to bring results in on next visit - Goal of BP <130/80 - LISINOPRIL 10 MG TABLET - CBC + DIFF - COMP METABOLIC PANEL 4. Carcinoma of prostate (HCC) - ICD9: 185, ICD10: C61 Follows with urology: MRI with possible 5. Spinal Stenosis of Lumbar Region - ICD9: 724.02, ICD10: M48.061 Chronic issues persist but managing well without medicaiton 6. Actinic Keratosis (Premalignant AK) - ICD9: 702.0, ICD10: L57.0 Currently on topical 5FU , following with Derm Eve Daniel PA-C documented in this encounter [facility] 08-03-2022 Miscellaneous Notes Patient had MRI prostate in [place] Needs appointment with Dr. Watson to discuss possible MRI biopsy documented in this encounter [facility] 07-03-2022 Miscellaneous Notes Spoke to pt and he is aware of MRI appt. And to keep follow up as scheduled for now. Bernice SCRUGGS PSA was 4.76, up from 3.63. His next appointment with you is in January. Jenny Davis RN documented in this encounter [facility] 02-05-2022 Miscellaneous Notes Pt notified. He verbalized understanding. Thony Richardson LPN He does not need to change anything that he takes. Pt reports he is going to have a treadmill stress test tomorrow. He is asking the provider what medications he should take in the morning before he goes in. Please call and advise. documented in this encounter [facility] 02-01-2022 History of Present illness Narrative 76 year old male with c/o 6 mo follow up Feeling good. HTN: Current meds: Lisinopril 10mg daily Patient is compliant with meds Yes Monitors bp at home: No. If yes, readings: Denies side effects: No. Chest pain: once in awhile gets a momentary < 10 sec, dull pain. Maybe twice in a week in last 2 months. Occurred sitting on couch at rest. Dyspnea: No. Edema: No. Palpitations: No. Syncope: No. Headache: No. Dizziness: No. Last 3 Encounter BP Readings: Date: BP: 01/22/2022 122/78 08/03/2021 138/80 05/09/2021 81/49 Last 2 Encounter Wt Readings: Date: Wt: 01/22/2022 85.7 kg (189 lb) 08/03/2021 84.6 kg (186 lb 9.6 oz) Hyperlipidemia: Current medication Atorvastatin 40mg Taking medication consistently Yes Observing low cholesterol high fiber diet Yes Muscle aches No Stomach complaints/ diarrhea No Last 2 Lipids: Component Latest Ref Rng & Units 01/27/2021 01/08/2022 Protein, Total 6.3 - 8.0 g/dL 6.8 6.9 Albumin 3.9 - 4.9 g/dL 4.1 4.4 Calcium 8.5 - 10.2 mg/dL 9.6 9.9 Bilirubin, Total 0.2 - 1.3 mg/dL 0.7 0.6 Alkaline Phosphatase 38 - 113 U/L 60 67 AST 14 - 40 U/L 22 16 Glucose 74 - 99 mg/dL 90 92 BUN 9 - 24 mg/dL 17 15 Creatinine 0.73 - 1.22 mg/dL 0.97 1.01 Sodium 136 - 144 mmol/L 143 142 Potassium 3.7 - 5.1 mmol/L 4.0 4.3 Chloride 97 - 105 mmol/L 106 (H) 107 (H) CO2 22 - 30 mmol/L 27 26 Anion Gap 9 - 18 mmol/L 10 9 ALT 10 - 54 U/L 18 11 eGFR- >60 eGFR-All Other Races . >60 eGFR >=60 mL/min/1.73m 78 Cholesterol, Total <200 mg/dL 139 154 Triglyceride <150 mg/dL 40 53 HDL Cholesterol >39 mg/dL 61 62 LDL Cholesterol <100 mg/dL 70 81 Non HDL Cholesterol <130 mg/dL 78 92 Fasting Time hrs 9 12 VLDL Cholesterol <30 mg/dL 8 11 TC:HDL Ratio <5.10 2.28 2.48 LDL:HDL Ratio <2.54 1.15 1.31 Vamp Seamer: Dr. Castrejon [facility]. Interval history: 12/04/[address] cancer screening: no suspicious Current medications: Benralizumab 30mg/mL SC [id number] Montelukast 10mg 10mg qHS Trelegy Ellipta 100-62.5-25 one puss daily Albuterol 90mcg/actuation inhaler 2 puffs q4h prn Worsening shortness of breath: Yes. Cough: Yes. Wheezing: Yes. Smoking: Yes. Compliant with medications: Yes. Using rescue inhaler: none. 01/22/2022 urology f/u Dr. Villeda: stable PSA stable Component Latest Ref Rng & Units 09/03/2013 01/19/2014 04/23/2016 06/05/2021 10/16/2021 01/08/2022 PSA Screening 0.00 - 2.59 ng/mL 3.08 (H) PSA <2.60 ng/mL 3.17 (H) 3.77 (H) 3.1 (H) 3.50 (H) 3.10 (H) HISTORIES FAMILY HISTORY Problem Relation Age of Onset Heart Mother Stroke Mother Heart Father Stroke Father Hemorrhagic, age 73 yo. Asthma Grandchild PAST MEDICAL HISTORY Diagnosis Date Abnormal EKG 03/21/2018 incomplete RBBB Actinic keratosis Acute respiratory failure with hypoxemia (HCC) 09/24/2019 Back pain Benign neoplasm of skin of trunk, except scrotum Condyloma acuminatum COPD (chronic obstructive pulmonary disease) (HCC) HLD (hyperlipidemia) HTN (hypertension) Lipoma of other skin and subcutaneous tissue Lump or mass in breast Neoplasm of uncertain behavior of skin Other chronic dermatitis due to solar radiation Other disorders of bone and cartilage(733.99) Perichondritis of pinna, unspecified Personal history of other malignant neoplasm of skin Scar condition and fibrosis of skin Snoring Viral warts, unspecified PAST SURGICAL HISTORY Procedure Laterality Date ARTHRP KNE CONDYLE&PLATU MEDIAL&LAT COMPARTMENTS 04/21/2012 R knee. COLONOSCOPY FLX DX W/COLLJ SPEC WHEN PFRMD 10/04/2014 Colonoscopy LITHOTRIPSY XTRCORP SHOCK WAVE Left 06/2019 PAST SURGICAL HISTORY OF left knee arthroscopy PAST SURGICAL HISTORY OF 12/2019 UroLift Prostatic REM LESION NEC,HND,SCAL 0.6-1.0CM 10/25/2007 Exc. SC mass left breast Social History Tobacco Use Smoking status: Former Packs/day: 2.00 Years: 50.00 Pack years: 100.00 Types: Cigarettes Quit date: 05/22/2016 Years since quittin.7 Smokeless tobacco: Former Tobacco comments: Currently down to 0.5 PPD, 11/16/14. TO Substance Use Topics Alcohol use: No Drug use: No ACTIVE PROBLEM LIST Personal History of Other Malignant Neoplasm of Skin Spinal Stenosis of Lumbar Region Copd (Chronic Obstructive Pulmonary Disease) (Hcc) Actinic Keratosis (Premalignant AK) Actinic Damage//Sun-Damaged Skin Seborrheic Keratosis Lipoma of Skin and Subcutaneous Tissue Angiolipoma Solar Lentigines Migraine Hyperlipidemia Benign Prostatic Hyperplasia Allergic Rhinitis Erectile Dysfunction Nocturia Frequency of Urination Elevated Psa Microscopic Hematuria Smoking History Arthritis of Shoulder Region, Left Benign Atrial Arrhythmia 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 45 tablet 1 lisinopril (ZESTRIL, PRINIVIL) 10 mg tablet Take 1 tablet by mouth once daily. 90 tablet 1 diphenhydrAMINE HCl 50 mg/30 mL liqd Take by mouth. guaiFENesin 1,200 mg Ta12 Take by mouth twice daily. benralizumab (FASENRA) 30 mg/mL injection Benralizumab (Fasenra) 30 mg/mL syringe Active 30 MG SC every 4 weeks 1 July 13, 2020 11:24am montelukast (SINGULAIR) 10 mg tablet Take 10 mg by mouth daily at bedtime. TRELEGY ELLIPTA 100-62.5-25 mcg Inhale 1 Puff as instructed once daily. albuterol HFA (PROAIR HFA) 90 mcg/actuation inhaler Inhale 2 Puffs as instructed every 4 hours as needed (FOR COUGH OR WHEEZE). 3 Inhaler 1 albuterol (PROVENTIL) 2.5 mg /3 mL (0.083 %) nebulizer solution Use 3 mL via nebulizer every 4 hours as needed for Wheezing/Shortness of Breath. Use over 5-15minutes. 1 Package 11 RESTASIS 0.05 % ophthalmic emulsion as needed. Nebulizer 1 Device three times daily. NEBULIZER FOR HOME USE. DX: copd exacerbation 1 Device 0 No current facility-administered medications for this visit. ALPHA-1 ANTITRYPSIN DEFICIENCY SCREENING Never done DTAP,TDAP,TD(1 - Tdap) due on 07/03/2013 ADVANCE DIRECTIVE DISCUSSION Never done LUNG CANCER SCREENING due on 12/02/2021 DEPRESSION SCREENING due on 01/22/2022 EXAM: BP 130/76 Pulse 89 Resp 16 Wt 82.6 kg (182 lb) SpO2 96% BMI 27.67 kg/m Pleasant overweight adult man in no acute distress. Alert and oriented all spheres. Normal affect and cognition. Speech normal. No deficits to learning or comprehension. Skin warm, dry, pink to lips and nailbeds. Normal turgor. Respirations regular and unlabored. HEENT: NCAT. No scleral icterus or conjunctival injection. TM's clear. Nose and oropharynx free from injection or lesion. Oral membranes moist and pink. No cervical lymph nodes. Thyroid non-tender, no masses, or enlargement. Carotids pulses 2+/4+ without bruits. Extrem: no clubbing or cyanosis. Edema: 1/4+. Extremities are warm and pink with prompt capillary refill. ASSESSMENT/PLAN: 1. Hypertension, unspecified type - ICD9: 401.9, ICD10: I10 (primary diagnosis) - good control - Continue current medication(s) - Recommended regular aerobic exercise. - Recommend home blood pressure monitoring, to bring results in on next visit - Goal of BP <130/80 - LISINOPRIL 10 MG TABLET 2. Mixed hyperlipidemia - ICD9: 272.2, ICD10: E78.2 - good control - Continue current medication. - ATORVASTATIN 40 MG TABLET 3. Chest pain, unspecified type - ICD9: 786.50, ICD10: R07.9 Chest pain of unclear etiology, patient with significant risk factor(s) of family history of early coronary heart disease, Hypertension, and Hyperlipidemia - Electrocardiogram: An ECG today showed NSR, RBB, no change from previous - Stress testing- see orders - [facility] CARE PLAN DISCUSSION - ECG COMPLETE - EXERCISE STRESS ECG (WITHOUT IMAGING) Eve Daniel PA-C Some of this note may have been copied and pasted for the purpose of history context and comparison. ' documented in this encounter [facility] 01-22-2022 History of Present illness Narrative ESTABLISHED PATIENT VISIT HPI Rikki Ojeda is a 76 year old male who presents with low risk prostate cancer. He underwent TURP and was found to have incidental prostate cancer on path specimen PSA has remained very stable Voiding well, no complaints No hematuria, no abdominal pain, no flank pain Patient Entered Questionnaires PROMIS Global Health PROMIS Global Health Scale 01/03/2017 03/03/2020 01/22/2021 Physical Health Percentile 31 % 66 % 78 % Mental Health Percentile 53 % 53 % 34 % Percentiles provide an indication of how the patient's score ranks in relation to the general population. Higher percentile rankings indicate better function/quality of life. 50th percentile is the average of the general population and indicates half of respondents had a worse score. IPSS Score 03/03/2020 IPSS 13 (moderate symptoms) Creatinine Date Value Ref Range Status 01/08/2022 1.01 0.73 - 1.22 mg/dL Final PSA (ng/mL) Date Value 01/08/2022 3.10 10/16/2021 3.50 06/05/2021 3.1 04/23/2016 3.77 01/19/2014 3.17 PSA Screening (ng/mL) Date Value 09/03/2013 3.08 Color (no units) Date Value 03/09/2021 Yellow 06/30/2019 Yellow Clarity (no units) Date Value 03/09/2021 Clear 06/30/2019 Clear Glucose, Urine Date Value 03/09/2021 Negative 06/30/2019 Negative mg/dL Bilirubin, Urine (no units) Date Value 03/09/2021 Negative 06/30/2019 Negative Ketones, Urine (no units) Date Value 03/09/2021 Negative 06/30/2019 Negative Specific [place], Ur (no units) Date Value 03/09/2021 1.007 06/30/2019 1.004 Hemoglobin/Blood,Ur Date Value 03/09/2021 Negative 06/30/2019 2+ pH, Urine (no units) Date Value 03/09/2021 6.0 06/30/2019 7.0 Protein, Urine Date Value 03/09/2021 Negative 06/30/2019 Negative mg/dL Urobilinogen (no units) Date Value 03/09/2021 0.2 EU/dL 06/30/2019 Normal Nitrites (no units) Date Value 03/09/2021 Negative 06/30/2019 Negative Leukest (no units) Date Value 06/30/2019 Negative Leuk Esterase (no units) Date Value 03/09/2021 Trace 24HR Urine Studies: No results for input(s): LUPH, LUCAL, LUCIT, LUOXA, LUURIC, LUVOL, LSCAO, LSCAP, LSURIC, LUCL, YAZMIN, MAT, LUUREA, LUAM, LUMAG, LUPHOS, LUPCR, LUCREA, LUCRKBW, LUCAKBW, LUCACREA, LUCREACL, LWK, LUSUL in the last [id number] hours. REVIEW OF SYSTEMS Review of Systems Constitutional: Negative for chills, fatigue, fever and unexpected weight change. HENT: Negative for sore throat and trouble swallowing. Eyes: Negative for visual disturbance. Respiratory: Negative for shortness of breath and wheezing. Cardiovascular: Negative for chest pain and leg swelling. Gastrointestinal: Negative for abdominal pain, blood in stool, diarrhea and nausea. Endocrine: Positive for polyuria. Genitourinary: Positive for decreased urine volume, difficulty urinating, frequency and urgency. Negative for dysuria, enuresis, flank pain and hematuria. Nocturia Intermittency Straining Musculoskeletal: Negative for back pain. Skin: Negative for rash. Neurological: Negative for dizziness and headaches. Hematological: Does not bruise/bleed easily. Psychiatric/Behavioral: Negative for behavioral problems and confusion. Review of system, history including past medical history, surgical history, family history and social history reviewed and confirmed by me. HISTORIES PAST MEDICAL HISTORY Diagnosis Date Abnormal EKG 03/21/2018 incomplete RBBB Actinic keratosis Acute respiratory failure with hypoxemia (HCC) 09/24/2019 Back pain Benign neoplasm of skin of trunk, except scrotum Condyloma acuminatum COPD (chronic obstructive pulmonary disease) (HCC) HLD (hyperlipidemia) HTN (hypertension) Lipoma of other skin and subcutaneous tissue Lump or mass in breast Neoplasm of uncertain behavior of skin Other chronic dermatitis due to solar radiation Other disorders of bone and cartilage(733.99) Perichondritis of pinna, unspecified Personal history of other malignant neoplasm of skin Scar condition and fibrosis of skin Snoring Viral warts, unspecified PAST SURGICAL HISTORY Procedure Laterality Date ARTHRP KNE CONDYLE&PLATU MEDIAL&LAT COMPARTMENTS 04/21/2012 R knee. COLONOSCOPY FLX DX W/COLLJ SPEC WHEN PFRMD 10/04/2014 Colonoscopy LITHOTRIPSY XTRCORP SHOCK WAVE Left 06/2019 PAST SURGICAL HISTORY OF left knee arthroscopy PAST SURGICAL HISTORY OF 12/2019 UroLift Prostatic REM LESION NEC,HND,SCAL 0.6-1.0CM 10/25/2007 Exc. SC mass left breast FAMILY HISTORY Problem Relation Age of Onset Heart Mother Stroke Mother Heart Father Stroke Father Hemorrhagic, age 73 yo. Asthma Grandchild SOCIAL HISTORY Social History Tobacco Use Smoking status: Former Smoker Packs/day: 2.00 Years: 50.00 Pack years: 100.00 Types: Cigarettes Quit date: 05/22/2016 Years since quittin.6 Smokeless tobacco: Former User Tobacco comment: Currently down to 0.5 PPD, 11/16/14. TO Substance Use Topics Alcohol use: No Drug use: No MEDICATIONS: atorvastatin (LIPITOR) 40 mg tablet, Take 0.5 tablets by mouth daily at bedtime. lisinopril (ZESTRIL, PRINIVIL) 10 mg tablet, Take 1 tablet by mouth once daily. diphenhydrAMINE HCl 50 mg/30 mL liqd, Take by mouth. guaiFENesin 1,200 mg Ta12, Take by mouth twice daily. benralizumab (FASENRA) 30 mg/mL injection, Benralizumab (Fasenra) 30 mg/mL syringe Active 30 MG SC every 4 weeks July 13, 2020 11:24am montelukast (SINGULAIR) 10 mg tablet, Take 10 mg by mouth daily at bedtime. TRELEGY ELLIPTA 100-62.5-25 mcg, Inhale 1 Puff as instructed once daily. albuterol HFA (PROAIR HFA) 90 mcg/actuation inhaler, Inhale 2 Puffs as instructed every 4 hours as needed (FOR COUGH OR WHEEZE). albuterol (PROVENTIL) 2.5 mg /3 mL (0.083 %) nebulizer solution, Use 3 mL via nebulizer every 4 hours as needed for Wheezing/Shortness of Breath. Use over 5-15minutes. RESTASIS 0.05 % ophthalmic emulsion, as needed. Nebulizer, 1 Device three times daily. NEBULIZER FOR HOME USE. DX: copd exacerbation PHYSICAL EXAMINATION General appearance: Well appearing, alert, in no acute distress and well-hydrated, well nourished Reviewed prior pathology, reviewed current PSA Reviewed NCCN guidelines, follow PSA, 6-month 12-month interval ASSESSMENT/PLAN: 1. Malignant neoplasm of prostate (HCC) - ICD9: 185, ICD10: C61 (primary diagnosis) - PSA/PROSTSPECAG DIAG 2. BPH with obstruction/lower urinary tract symptoms - ICD9: 600.01, 599.69, ICD10: N40.1, N13.8 Carlos Cantrell Medical Decision Making documented in this encounter [facility] 01-08-2022 Miscellaneous Notes Update CBC please. documented in this encounter [facility] documented as of this encounter (statuses as of 01/08/2022) [facility] History of Past illness Narrative* Problem Noted Date Resolved Date Acute respiratory failure with hypoxemia 020 01/24/2021 Smoking 09/15/2013 01/24/2021 MASS IN BREAST 10/20/2007 01/08/2012 Overview: Lipoma -- Dr. Granados -- 2007 EXCESS CARTILAGE///BONE & CARTILAGE DIS NEC 06/2608/31/2009 Other seborrheic keratosis 07/14/200708/31 Perichondritis of pinna, unspecified 07/14/2007 08/31/2009 Actinic keratosis 08/06/2006 08/31/2009 Neoplasm of uncertain behavior of skin 7 08/31/2009 Viral warts, unspecified 08/06/2006 010 Condyloma acuminatum 08/06/2006 01/08/2012 Other chronic dermatitis due to solar radiation 08/06/2006 08/31/2009 Scar condition and fibrosis of skin 08/06/2006 08/31/2009 Benign neoplasm of skin of trunk, except scrotum 08/06/2006 08/31/2009 Lipoma of other skin and subcutaneous tissue 08/31/2009 documented as of this encounter (statuses as of 01/22/2022) [facility] History of Past illness Narrative* Problem Noted Date Resolved Date Acute respiratory failure with hypoxemia 020 01/24/2021 Smoking 09/15/2013 01/24/2021 MASS IN BREAST 10/20/2007 01/08/2012 Overview: Lipoma -- Dr. Granados -- 2007 EXCESS CARTILAGE///BONE & CARTILAGE DIS NEC 06/2608/31/2009 Other seborrheic keratosis 07/14/200708/31 Perichondritis of pinna, unspecified 07/14/2007 08/31/2009 Actinic keratosis 08/06/2006 08/31/2009 Neoplasm of uncertain behavior of skin 7 08/31/2009 Viral warts, unspecified 08/06/2006 010 Condyloma acuminatum 08/06/2006 01/08/2012 Other chronic dermatitis due to solar radiation 08/06/2006 08/31/2009 Scar condition and fibrosis of skin 08/06/2006 08/31/2009 Benign neoplasm of skin of trunk, except scrotum 08/06/2006 08/31/2009 Lipoma of other skin and subcutaneous tissue 08/31/2009 documented as of this encounter (statuses as of 02/01/2022) [facility] History of Past illness Narrative* Problem Noted Date Resolved Date Acute respiratory failure with hypoxemia 020 01/24/2021 Smoking 09/15/2013 01/24/2021 MASS IN BREAST 10/20/2007 01/08/2012 Overview: Lipoma -- Dr. Granados -- 2007 EXCESS CARTILAGE///BONE & CARTILAGE DIS NEC 06/2608/31/2009 Other seborrheic keratosis 07/14/200708/31 Perichondritis of pinna, unspecified 07/14/2007 08/31/2009 Actinic keratosis 08/06/2006 08/31/2009 Neoplasm of uncertain behavior of skin 7 08/31/2009 Viral warts, unspecified 08/06/2006 010 Condyloma acuminatum 08/06/2006 01/08/2012 Other chronic dermatitis due to solar radiation 08/06/2006 08/31/2009 Scar condition and fibrosis of skin 08/06/2006 08/31/2009 Benign neoplasm of skin of trunk, except scrotum 08/06/2006 08/31/2009 Lipoma of other skin and subcutaneous tissue 08/31/2009 documented as of this encounter (statuses as of 02/05/2022) [facility] History of Past illness Narrative* Problem Noted Date Resolved Date Acute respiratory failure with hypoxemia 020 01/24/2021 Smoking 09/15/2013 01/24/2021 MASS IN BREAST 10/20/2007 01/08/2012 Overview: Lipoma -- Dr. Granados -- 2007 EXCESS CARTILAGE///BONE & CARTILAGE DIS NEC 06/2608/31/2009 Other seborrheic keratosis 07/14/200708/31 Perichondritis of pinna, unspecified 07/14/2007 08/31/2009 Actinic keratosis 08/06/2006 08/31/2009 Neoplasm of uncertain behavior of skin 7 08/31/2009 Viral warts, unspecified 08/06/2006 010 Condyloma acuminatum 08/06/2006 01/08/2012 Other chronic dermatitis due to solar radiation 08/06/2006 08/31/2009 Scar condition and fibrosis of skin 08/06/2006 08/31/2009 Benign neoplasm of skin of trunk, except scrotum 08/06/2006 08/31/2009 Lipoma of other skin and subcutaneous tissue 08/31/2009 documented as of this encounter (statuses as of 06/29/2022) [facility] History of Past illness Narrative* Problem Noted Date Resolved Date Acute respiratory failure with hypoxemia 020 01/24/2021 Smoking 09/15/2013 01/24/2021 MASS IN BREAST 10/20/2007 01/08/2012 Overview: Lipoma -- Dr. Granados -- 2007 EXCESS CARTILAGE///BONE & CARTILAGE DIS NEC 06/2608/31/2009 Other seborrheic keratosis 07/14/200708/31 Perichondritis of pinna, unspecified 07/14/2007 08/31/2009 Actinic keratosis 08/06/2006 08/31/2009 Neoplasm of uncertain behavior of skin 7 08/31/2009 Viral warts, unspecified 08/06/2006 010 Condyloma acuminatum 08/06/2006 01/08/2012 Other chronic dermatitis due to solar radiation 08/06/2006 08/31/2009 Scar condition and fibrosis of skin 08/06/2006 08/31/2009 Benign neoplasm of skin of trunk, except scrotum 08/06/2006 08/31/2009 Lipoma of other skin and subcutaneous tissue 08/31/2009 documented as of this encounter (statuses as of 07/03/2022) [facility] History of Past illness Narrative* Problem Noted Date Resolved Date Acute respiratory failure with hypoxemia 020 01/24/2021 Smoking 09/15/2013 01/24/2021 MASS IN BREAST 10/20/2007 01/08/2012 Overview: Lipoma -- Dr. Granados -- 2007 EXCESS CARTILAGE///BONE & CARTILAGE DIS NEC 06/2608/31/2009 Other seborrheic keratosis 07/14/200708/31 Perichondritis of pinna, unspecified 07/14/2007 08/31/2009 Actinic keratosis 08/06/2006 08/31/2009 Neoplasm of uncertain behavior of skin 7 08/31/2009 Viral warts, unspecified 08/06/2006 010 Condyloma acuminatum 08/06/2006 01/08/2012 Other chronic dermatitis due to solar radiation 08/06/2006 08/31/2009 Scar condition and fibrosis of skin 08/06/2006 08/31/2009 Benign neoplasm of skin of trunk, except scrotum 08/06/2006 08/31/2009 Lipoma of other skin and subcutaneous tissue 08/31/2009 documented as of this encounter (statuses as of 08/03/2022) [facility] History of Past illness Narrative* Problem Noted Date Resolved Date Acute respiratory failure with hypoxemia 020 01/24/2021 Smoking 09/15/2013 01/24/2021 MASS IN BREAST 10/20/2007 01/08/2012 Overview: Lipoma -- Dr. Granados -- 2007 EXCESS CARTILAGE///BONE & CARTILAGE DIS NEC 06/2608/31/2009 Other seborrheic keratosis 07/14/200708/31 Perichondritis of pinna, unspecified 07/14/2007 08/31/2009 Actinic keratosis 08/06/2006 08/31/2009 Neoplasm of uncertain behavior of skin 7 08/31/2009 Viral warts, unspecified 08/06/2006 010 Condyloma acuminatum 08/06/2006 01/08/2012 Other chronic dermatitis due to solar radiation 08/06/2006 08/31/2009 Scar condition and fibrosis of skin 08/06/2006 08/31/2009 Benign neoplasm of skin of trunk, except scrotum 08/06/2006 08/31/2009 Lipoma of other skin and subcutaneous tissue 08/31/2009 documented as of this encounter (statuses as of 08/07/2022) [facility] History of Past illness Narrative* Problem Noted Date Resolved Date Acute respiratory failure with hypoxemia 020 01/24/2021 Smoking 09/15/2013 01/24/2021 MASS IN BREAST 10/20/2007 01/08/2012 Overview: Lipoma -- Dr. Granados -- 2007 EXCESS CARTILAGE///BONE & CARTILAGE DIS NEC 06/2608/31/2009 Other seborrheic keratosis 07/14/200708/31 Perichondritis of pinna, unspecified 07/14/2007 08/31/2009 Actinic keratosis 08/06/2006 08/31/2009 Neoplasm of uncertain behavior of skin 7 08/31/2009 Viral warts, unspecified 08/06/2006 010 Condyloma acuminatum 08/06/2006 01/08/2012 Other chronic dermatitis due to solar radiation 08/06/2006 08/31/2009 Scar condition and fibrosis of skin 08/06/2006 08/31/2009 Benign neoplasm of skin of trunk, except scrotum 08/06/2006 08/31/2009 Lipoma of other skin and subcutaneous tissue 08/31/2009 documented as of this encounter (statuses as of 10/05/2022) [facility] History of Past illness Narrative* Problem Noted Date Resolved Date Acute respiratory failure with hypoxemia 020 01/24/2021 Smoking 09/15/2013 01/24/2021 MASS IN BREAST 10/20/2007 01/08/2012 Overview: Lipoma -- Dr. Granados -- 2007 EXCESS CARTILAGE///BONE & CARTILAGE DIS NEC 06/2608/31/2009 Other seborrheic keratosis 07/14/200708/31 Perichondritis of pinna, unspecified 07/14/2007 08/31/2009 Actinic keratosis 08/06/2006 08/31/2009 Neoplasm of uncertain behavior of skin 7 08/31/2009 Viral warts, unspecified 08/06/2006 010 Condyloma acuminatum 08/06/2006 01/08/2012 Other chronic dermatitis due to solar radiation 08/06/2006 08/31/2009 Scar condition and fibrosis of skin 08/06/2006 08/31/2009 Benign neoplasm of skin of trunk, except scrotum 08/06/2006 08/31/2009 Lipoma of other skin and subcutaneous tissue 08/31/2009 documented as of this encounter (statuses as of 10/22/2022) [facility] History of Past illness Narrative* Problem Noted Date Resolved Date Acute respiratory failure with hypoxemia 020 01/24/2021 Smoking 09/15/2013 01/24/2021 MASS IN BREAST 10/20/2007 01/08/2012 Overview: Lipoma -- Dr. Granados -- 2007 EXCESS CARTILAGE///BONE & CARTILAGE DIS NEC 06/2608/31/2009 Other seborrheic keratosis 07/14/200708/31 Perichondritis of pinna, unspecified 07/14/2007 08/31/2009 Actinic keratosis 08/06/2006 08/31/2009 Neoplasm of uncertain behavior of skin 7 08/31/2009 Viral warts, unspecified 08/06/2006 010 Condyloma acuminatum 08/06/2006 01/08/2012 Other chronic dermatitis due to solar radiation 08/06/2006 08/31/2009 Scar condition and fibrosis of skin 08/06/2006 08/31/2009 Benign neoplasm of skin of trunk, except scrotum 08/06/2006 08/31/2009 Lipoma of other skin and subcutaneous tissue 08/31/2009 documented as of this encounter (statuses as of 10/27/2022) [facility] History of Past illness Narrative* Problem Noted Date Resolved Date Acute respiratory failure with hypoxemia 020 01/24/2021 Smoking 09/15/2013 01/24/2021 MASS IN BREAST 10/20/2007 01/08/2012 Overview: Lipoma -- Dr. Granados -- 2007 EXCESS CARTILAGE///BONE & CARTILAGE DIS NEC 06/2608/31/2009 Other seborrheic keratosis 07/14/200708/31 Perichondritis of pinna, unspecified 07/14/2007 08/31/2009 Actinic keratosis 08/06/2006 08/31/2009 Neoplasm of uncertain behavior of skin 7 08/31/2009 Viral warts, unspecified 08/06/2006 010 Condyloma acuminatum 08/06/2006 01/08/2012 Other chronic dermatitis due to solar radiation 08/06/2006 08/31/2009 Scar condition and fibrosis of skin 08/06/2006 08/31/2009 Benign neoplasm of skin of trunk, except scrotum 08/06/2006 08/31/2009 Lipoma of other skin and subcutaneous tissue 08/31/2009 documented as of this encounter (statuses as of 11/22/2022) [facility] History of Past illness Narrative* Problem Noted Date Diagnosed Date Resolved Date Acute respiratory failure with hypoxemia 09/24/2019 01/24/2021 Smoking 09/15/2013 01/24/2021 MASS IN BREAST 10/20/2007 01/08/2012 Overview: Lipoma -- Dr. Granados -- 2007 EXCESS CARTILAGE///BONE & CARTILAGE DIS NEC 07/23/2007 08/31/2009 Other seborrheic keratosis 07/14/2007 0 08/31/2009 Perichondritis of pinna, unspecified 07/14/2007 08/31/2009 Actinic keratosis 08/06/2006 08/31/2009 Neoplasm of uncertain behavior of skin 08/06/2006 08/31/2009 Viral warts, unspecified 08/06/200603/2010 Condyloma acuminatum 08/06/2006 012 Other chronic dermatitis due to solar radiation 08/06/2006 08/31/2009 Scar condition and fibrosis of skin 08/06/2006 08/31/2009 Benign neoplasm of skin of t runk, except scrotum 08/06/2006 08/31/2009 Lipoma of other skin and subcutaneous tissue 7 08/31/2009 documented as of this encounter (statuses as of 01/28/2023) [facility] History of Past illness Narrative* Problem Noted Date Diagnosed Date Resolved Date Acute respiratory failure with hypoxemia 09/24/2019 01/24/2021 Smoking 09/15/2013 01/24/2021 MASS IN BREAST 10/20/2007 01/08/2012 Overview: Lipoma -- Dr. Granados -- 2007 EXCESS CARTILAGE///BONE & CARTILAGE DIS NEC 07/23/2007 08/31/2009 Other seborrheic keratosis 07/14/2007 0 08/31/2009 Perichondritis of pinna, unspecified 07/14/2007 08/31/2009 Actinic keratosis 08/06/2006 08/31/2009 Neoplasm of uncertain behavior of skin 08/06/2006 08/31/2009 Viral warts, unspecified 08/06/200603/2010 Condyloma acuminatum 08/06/2006 012 Other chronic dermatitis due to solar radiation 08/06/2006 08/31/2009 Scar condition and fibrosis of skin 08/06/2006 08/31/2009 Benign neoplasm of skin of t runk, except scrotum 08/06/2006 08/31/2009 Lipoma of other skin and subcutaneous tissue 7 08/31/2009 documented as of this encounter (statuses as of 01/28/2023) [facility] History of Past illness Narrative* Problem Noted Date Diagnosed Date Resolved Date Acute respiratory failure with hypoxemia 09/24/2019 01/24/2021 Nocturia 09/15/2013 02/05/2023 Smoking 09/15/2013 01/24/2021 Benign prostatic hyperplasia 01/08/2012 02/05/2023 MASS IN BREAST 10/20/2007 01/08/2012 Overview: Lipoma -- Dr. Granados -- 2007 EXCESS CARTILAGE///BONE & CARTILAGE DIS NEC 07/23/2007 08/31/2009 Other seborrheic keratosis 07/14/2007 0 08/31/2009 Perichondritis of pinna, unspecified 07/14/2007 08/31/2009 Actinic keratosis 08/06/2006 08/31/2009 Neoplasm of uncertain behavior of skin 08/06/2006 08/31/2009 Viral warts, unspecified 08/06/200603/2010 Condyloma acuminatum 08/06/2006 012 Other chronic dermatitis due to solar radiation 08/06/2006 08/31/2009 Scar condition and fibrosis of skin 08/06/2006 08/31/2009 Benign neoplasm of skin of t runk, except scrotum 08/06/2006 08/31/2009 Lipoma of other skin and subcutaneous tissue 7 08/31/2009 documented as of this encounter (statuses as of 02/06/2023) [facility] History of Past illness Narrative* Problem Noted Date Diagnosed Date Resolved Date Acute respiratory failure with hypoxemia 09/24/2019 01/24/2021 Nocturia 09/15/2013 02/05/2023 Smoking 09/15/2013 01/24/2021 Benign prostatic hyperplasia 01/08/2012 02/05/2023 MASS IN BREAST 10/20/2007 01/08/2012 Overview: Lipoma -- Dr. Granados -- 2007 EXCESS CARTILAGE///BONE & CARTILAGE DIS NEC 07/23/2007 08/31/2009 Other seborrheic keratosis 07/14/2007 0 08/31/2009 Perichondritis of pinna, unspecified 07/14/2007 08/31/2009 Actinic keratosis 08/06/2006 08/31/2009 Neoplasm of uncertain behavior of skin 08/06/2006 08/31/2009 Viral warts, unspecified 08/06/200603/2010 Condyloma acuminatum 08/06/2006 012 Other chronic dermatitis due to solar radiation 08/06/2006 08/31/2009 Scar condition and fibrosis of skin 08/06/2006 08/31/2009 Benign neoplasm of skin of t runk, except scrotum 08/06/2006 08/31/2009 Lipoma of other skin and subcutaneous tissue 08/31/2009 documented as of this encounter (statuses as of 04/12/2023) [facility] Diagnosis Primary hypertension- Primary Unspecified essential hypertension Chronic obstructive pulmonary disease, unspecified COPD type (HCC) [facility] Diagnosis Malignant neoplasm of prostate (HCC)- Primary Malignant neoplasm of prostate BPH with obstruction/lower urinary tract symptoms Hypertrophy of prostate with urinary obstruction and other lower urinary tract symptoms (LUTS) [facility] Diagnosis Hypertension, unspecified type- Primary Mixed hyperlipidemia Chest pain, unspecified type [facility] Diagnosis Malignant neoplasm of prostate (HCC)- Primary Malignant neoplasm of prostate [facility] Diagnosis Chronic obstructive pulmonary disease, unspecified COPD type (HCC)- Primary Mixed hyperlipidemia Hypertension, unspecified type Carcinoma of prostate (HCC) Malignant neoplasm of prostate Spinal Stenosis of Lumbar Region Spinal stenosis, lumbar region, without neurogenic claudication Actinic Keratosis (Premalignant AK) Actinic keratosis [facility] Diagnosis Rash of penis- Primary Unspecified disorder of penis Carcinoma of prostate (HCC) Malignant neoplasm of prostate [facility] Diagnosis Acute COVID-19- Primary [facility] Diagnosis Malignant neoplasm of prostate (HCC)- Primary Malignant neoplasm of prostate documented in this encounter [facility] note* Diagnosis 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 Chronic airway obstruction, not elsewhere classified Hypertension, unspecified type Benign atrial arrhythmia Mixed hyperlipidemia Chronic obstructive pulmonary disease, unspecified COPD type (HCC) Carcinoma of prostate (HCC) Malignant neoplasm of prostate Nocturia Spinal Stenosis of Lumbar Region Spinal stenosis, lumbar region, without neurogenic claudication Episodic cluster headache, not intractable Episodic cluster headache documented in this encounter [facility] note* Diagnosis Malignant neoplasm of prostate (HCC)- Primary Malignant neoplasm of prostate documented in this encounter [facility] for referral (narrative)* Outpatient Procedure (Routine) - Closed Specialty Diagnoses / Procedures Referred By Contac t Referred To Contact [facility] Diagnoses Chest pain, unspecified type Procedures ECG COMPLETE ECG ROUTINE ECG W/LEAST 12 LDS W/I&R Eve Daniel PA-C [address] [place] [address] [facility] [address] [place] [id number] Referral ID Status Reason Start Date Expiration Date V isits Requested Visits Authorized [id number] Closed Auto-Generate d Referral 02/01/2022 02/01/2023 1 1 [facility] Summary Purpose Family History No Family History Records FoundNo Family History Records FoundNo Family History Records Found Advance Directives No Advanced Directives Records FoundDocuments on File Type Date Recorded Patient Nonprofit Fundraiser Expl anation Advance Directive(s) 05/09/2021 6:27 AM Advance Directive(s) 03/06/2021 10:17 AM Advance Directive(s) 01/19/2020 10:22 AM Advance Directive(s) 07/07/2019 2:07 PM Documents on File Type Date Recorded Patient Nonprofit Fundraiser Expl anation Advance Directive(s) 03/06/2021 10:17 AM Documents on File Type Date Recorded Patient Nonprofit Fundraiser Expl anation Advance Directive(s) 03/06/2021 10:17 AM Reason for Referral Specialty Diagnoses / Procedures Referred By Contac t Referred To Contact MR IMAGING Diagnoses Malignant neoplasm of prostate (HCC) Procedures MRI PROSTATE WO/W IVCON MRI PELVIS W/O & W/CONTRAST MATERIAL Carlos Cantrell MD [address] [place] [address] Mr Imaging Referral ID Status Reason Start Date Expiration Date Visits Requested Visits Authorized [id number] Authorized Auto-Generat ed Referral 06/29/2022 07/29/2023 1 1 Additional Source Comments (unrecognized sect ion and content) No Status Records FoundNo Status Records FoundNo Status Records Found INFORMATION SOURCE (unrecogn ized section and content) DATE CREATED AUTHOR AUTHOR'S ORGANIZ ATION 04/10/2023 [facility] DATE CREATED AUTHOR AUTHOR'S ORGANIZ ATION 04/13/2023 [facility] Source Comments (unrecognize d section and content) In the event this informatio n is protected by the Federal Confidentiality of Alcohol and Drug Abuse Patient Records regulations: The Federal rules restrict any use of the information to criminally investigate or prosecute any alcohol or drug abuse patient.[facility] the event this information is protected by the Federal Confidentiality of Alcohol and Drug Abuse Patient Records regulations: The Federal rules restrict any use of the information to criminally investigate or prosecute any alcohol or drug abuse patient.[facility] the event this information is protected by the Federal Confidentiality of Alcohol and Drug Abuse Patient Records regulations: The Federal rules restrict any use of the information to criminally investigate or prosecute any alcohol or drug abuse patient.[facility] the event this information is protected by the Federal Confidentiality of Alcohol and Drug Abuse Patient Records regulations: The Federal rules restrict any use of the information to criminally investigate or prosecute any alcohol or drug abuse patient.[facility] the event this information is protected by the Federal Confidentiality of Alcohol and Drug Abuse Patient Records regulations: The Federal rules restrict any use of the information to criminally investigate or prosecute any alcohol or drug abuse patient.[facility] the event this information is protected by the Federal Confidentiality of Alcohol and Drug Abuse Patient Records regulations: The Federal rules restrict any use of the information to criminally investigate or prosecute any alcohol or drug abuse patient.[facility] the event this information is protected by the Federal Confidentiality of Alcohol and Drug Abuse Patient Records regulations: The Federal rules restrict any use of the information to criminally investigate or prosecute any alcohol or drug abuse patient.[facility] the event this information is protected by the Federal Confidentiality of Alcohol and Drug Abuse Patient Records regulations: The Federal rules restrict any use of the information to criminally investigate or prosecute any alcohol or drug abuse patient.[facility] the event this information is protected by the Federal Confidentiality of Alcohol and Drug Abuse Patient Records regulations: The Federal rules restrict any use of the information to criminally investigate or prosecute any alcohol or drug abuse patient.[facility] the event this information is protected by the Federal Confidentiality of Alcohol and Drug Abuse Patient Records regulations: The Federal rules restrict any use of the information to criminally investigate or prosecute any alcohol or drug abuse patient.[facility] the event this information is protected by the Federal Confidentiality of Alcohol and Drug Abuse Patient Records regulations: The Federal rules restrict any use of the information to criminally investigate or prosecute any alcohol or drug abuse patient.[facility] the event this information is protected by the Federal Confidentiality of Alcohol and Drug Abuse Patient Records regulations: The Federal rules restrict any use of the information to criminally investigate or prosecute any alcohol or drug abuse patient.[facility] HospitalIn the event this information is protected by the Federal Confidentiality of Alcohol and Drug Abuse Patient Records regulations: The Federal rules restrict any use of the information to criminally investigate or prosecute any alcohol or drug abuse patient.[facility] HospitalIn the event this information is protected by the Federal Confidentiality of Alcohol and Drug Abuse Patient Records regulations: The Federal rules restrict any use of the information to criminally investigate or prosecute any alcohol or drug abuse patient.[facility] HospitalIn the event this information is protected by the Federal Confidentiality of Alcohol and Drug Abuse Patient Records regulations: The Federal rules restrict any use of the information to criminally investigate or prosecute any alcohol or drug abuse patient.[facility] Hospital[facility] the event this information is protected by the Federal Confidentiality of Alcohol and Drug Abuse Patient Records regulations: The Federal rules restrict any use of the information to criminally investigate or prosecute any alcohol or drug abuse patient.[facility] Reason for Visit (unrecogniz ed section and content) Reason Comments Prostate Cancer Reason Comments 6 Month Exam Reason Comments Medication Question Reason Comments Appointment Reason Comments 6 Month Exam Reason Comments Surgery Scheduled Reason Comments Penis/Scrotum Problem Pain. 2 weeks Reason Comments Covid19 Concern Fever, ST x today, p ositive exposure Reason Comments Results PSA Care Teams (unrecognized sec tion and content) Raiser Helper Relationship Specialty Start Date End Date Rhonda Hahn MD [address] [place] [address] PCP - General Family Practice 01/19/20 Raiser Helper Relationship Specialty Start Date End Date Rhonda Hahn MD [address] [facility] [address] PCP - General Family Practice 01/19/20 Raiser Helper Relationship Specialty Start Date End Date Rhonda Hahn MD [address] [place] [address] PCP - General Family Medicine 01/19/20 Raiser Helper Relationship Specialty Start Date End Date Rhonda Hahn MD [address] [place] [address] PCP - General Family Medicine 01/19/20 Raiser Helper Relationship Specialty Start Date End Date Rhonda Hahn MD [address] [place] [address] PCP - General Family Medicine 01/19/20 Raiser Helper Relationship Specialty Start Date End Date Rhonda Hahn MD [address] [place] [address] PCP - General Family Medicine 01/19/20 Raiser Helper Relationship Specialty Start Date End Date Rhonda Hahn MD [address] [place] [address] PCP - General Family Medicine 01/19/20 Raiser Helper Relationship Specialty Start Date End Date Rhonda Hahn MD [address] [place] [address] PCP - General Family Medicine 01/19/20 Raiser Helper Relationship Specialty Start Date End Date Rhonda Hahn MD [address] [place] [address] PCP - General Family Medicine 01/19/20 Raiser Helper Relationship Specialty Start Date End Date Rhonda Hahn MD [address] [place] [address] PCP - General Family Medicine 01/19/20 Raiser Helper Relationship Specialty Start Date End Date Eve Daniel PA-C [address] [place], [place] [id number] PCP - [facility] 01/25/23 Raiser Helper Relationship Specialty Start Date End Date Eve Daniel PA-C [address] [place], [place] [id number] PCP - [facility] 01/25/23 Raiser Helper Relationship Specialty Start Date End Date Eve Daniel PA-C [address] [facility], [place] [id number] PCP - [facility] 01/25/23 Raiser Helper Relationship Specialty Start Date End Date Eve Daniel PA-C [address] [place], [place] [id number] PCP - [facility] 01/25/23 FOR RECORDS PERTAINING TO PATIENTS WHO ARE OR HAVE BEEN ENROLLED IN A CHEMICAL DEPENDENCY/SUBSTANCEABUSE PROGRAM, SOME INFORMATION MAY BE OMITTED. This clinical summary was aggregated from multiple sources. Caution should be exercised in using it in the provision of clinical care. This summary normalizes information from multiple sources, and as a consequence, information in this document may materially change the coding, format and clinical context of patient data. In addition, data may be omitted in some cases. CLINICAL DECISIONS SHOULD BE BASED ON THE PRIMARY CLINICAL RECORDS. [facility]. provides no warranty or guarantee of the accuracy or completeness of information in this document.
== END 2023-07-26 10:24 | disposition home or self-care (01) ==
LOC: MEDOUTP 10:25
PROVIDERS: PCP Family Medicine; Referring Provider Nurse Practitioner Acute Care; Visit Provider Nurse Practitioner Acute Care
DX: J45.50 Severe persistent asthma, uncomplicated (principal)
CPT/HCPCS: 96372; J0517

== ENCOUNTER 2023-09-20 09:53 | Outpatient (CLI) | payer MEDICARE, OTHER, SELFPAY ==
[2023-09-20 09:58] VITALS: BP 145/72; PULSE 93; RESP 16; TEMP 36.1; O2SAT 96; BMI 25.1
[2023-09-20] MEDS: Benralizumab 30 MG/ML Syringe SC (10:16)
== END 2023-09-20 09:54 | disposition home or self-care (01) ==
LOC: MEDOUTP 09:53
PROVIDERS: PCP Family Medicine; Referring Provider Nurse Practitioner Acute Care; Visit Provider Nurse Practitioner Acute Care
DX: J45.50 Severe persistent asthma, uncomplicated (principal)
CPT/HCPCS: 96372; J0517

== ENCOUNTER 2023-11-15 09:49 | Outpatient (CLI) | payer MEDICARE, OTHER, SELFPAY ==
[2023-11-15] MEDS: Benralizumab 30 MG/ML Syringe SC (10:13)
[2023-11-15 10:17] VITALS: BP 133/74; PULSE 78; RESP 16; TEMP 36.3; O2SAT 93
== END 2023-11-15 23:59 | disposition home or self-care (01) ==
LOC: MEDOUTP 09:49
PROVIDERS: PCP Family Medicine; Referring Provider Nurse Practitioner Acute Care; Visit Provider Nurse Practitioner Acute Care
DX: J45.50 Severe persistent asthma, uncomplicated (principal)
CPT/HCPCS: 96372; J0517

== ENCOUNTER → 2023-12-09 | Outpatient (CLI) | payer MEDICARE, OTHER, SELFPAY ==
--- NOTE | 2023-12-09 07:13 | CT_ITS ---
STUDY: LOW DOSE CT LUNG CANCER SCREENING REASON FOR EXAM: Male, 78 years old. smoker quit 2018. Patient smoked 2 packs per day for 45 years. COPD. History of prostate carcinoma. RADIATION DOSAGE (If Supplied By Facility): CTDIvol = ( 3.02 ) mGy, DLP = ( 103.45 ) mGycm TECHNIQUE: No contrast was administered. Low dose technique was utilized (average mAS-38 and kVp 120). 1.25 mm axial source images with a slice interval of 1.25-mm were reconstructed in lung windows. 2.5 mm axial source images with a slice interval of 2.5-mm were reconstructed in lung windows. 5.0 mm axial source images with a slice interval of 5.0-mm were reconstructed in soft tissue windows. COMPARISON: Comparison is made with prior study dated December 06, 2022. NODULES: No suspicious nodules are seen. Emphysema: Hyperinflation. Emphysematous changes are seen in both lungs worse in the upper lobes. Stable mild linear scarring in the anterior upper lobe on the right. Stable mild bronchiectasis. Stable scarring in the anteromedial aspect of the right middle lobe as well as in the anterior aspect of the lingular segment of the left upper lobe. Endobronchial lesion: None Aorta: Atherosclerotic plaque formation of the aortic arch. CORONARY ARTERIES: Coronary artery calcification is seen. Heart: Unremarkable Pulmonary artery: Unremarkable. Mediastinal nodes: Small mediastinal lymph nodes. Other chest and abdominal findings: CT/Low Dose CT Lung Screening IMPRESSION: Lung-RADS category 2 - Continue annual screening with LDCT in 12 months. IMPORTANT NOTES FOR USE: ACR Lung-RADS Version 1.1 Assessment Categories Release Date: 2018 Category: Coded 0-4 bases on nodule(s) with highest degree of suspicion. Negative screen is defined as categories 1 and 2; a positive screen is defined as categories 3 and 4. Category 3 and 4A nodules that are unchanged on interval CT should be coded as category 2, and individuals returned to screening in 12 months. Category 4X: Category 3 or 4 nodules with additional imaging findings that increase the suspicion of lung cancer, such as spiculation, GGN that doubles in size in 1 year, enlarged lymph notes, etc. Category Modifiers: S (significant finding unrelated to lung cancer) Electronically Signed: Sal Rocha MD at 9:04 EDT ,
== END | disposition home or self-care (01) ==
LOC: CT 07:10
PROVIDERS: PCP Family Medicine; Referring Provider Nurse Practitioner Acute Care; Visit Provider Nurse Practitioner Acute Care
DX: J44.9 Chronic obstructive pulmonary disease, unspecified (principal); F17.210 Nicotine dependence, cigarettes, uncomplicated
CPT/HCPCS: 71271; 94060; 94726; 94729

== ENCOUNTER → 2023-12-11 | Outpatient (CLI) | payer MEDICARE, OTHER, SELFPAY ==
[2023-12-11 12:58] VITALS: PULSE 107; PULSE 108; PULSE 112; PULSE 114; PULSE 116; PULSE 117; PULSE 94; O2SAT 87; O2SAT 91; O2SAT 92; O2SAT 96
--- NOTE | 2023-12-12 10:29 | PCM.PSN.6M ---
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 Assistive device used: None Pre-test Oxygen Delivery Method Room Air Pulse Ox (%) 92 Pulse Rate (60-100 beats/min) 107 H Dyspnea Caden Scale (0-10) 0 Exertion Caden Scale (6-20) 6 1st minute Oxygen Delivery Method Room Air Pulse Ox (%) 91 Pulse Rate (60-100 beats/min) 116 H 2nd minute Oxygen Delivery Method Room Air Pulse Ox (%) 87 Pulse Rate (60-100 beats/min) 117 H 3rd minute Oxygen Flow Rate (L/min) (L/min) 2 Oxygen Delivery Method Nasal Cannula Pulse Ox (%) 92 Pulse Rate (60-100 beats/min) 114 H 4th minute Oxygen Flow Rate (L/min) (L/min) 2 Oxygen Delivery Method Nasal Cannula Pulse Ox (%) 91 Pulse Rate (60-100 beats/min) 112 H 5th minute Oxygen Flow Rate (L/min) (L/min) 2 Oxygen Delivery Method Nasal Cannula Pulse Ox (%) 91 Pulse Rate (60-100 beats/min) 108 H 6th minute Oxygen Flow Rate (L/min) (L/min) 2 Oxygen Delivery Method Nasal Cannula Pulse Ox (%) 91 Pulse Rate (60-100 beats/min) 108 H Dyspnea Caden Scale (0-10) 2 Exertion Caden Scale (6-20) 12 Post-test Oxygen Flow Rate (L/min) (L/min) 2 Oxygen Delivery Method Nasal Cannula Pulse Ox (%) 96 Pulse Rate (60-100 beats/min) 94 Full Laps Walked 15 Partial Lap, Number of Tiles Walked 36 Total Distance Walked (ft) 921 Interpretation Interpretation: The patient ambulated 921 feet over the course of 6 minutes beginning on room air without assistive devices. Pretesting oxygen saturation was noted to be 92% on room air. With ambulation, the patient desaturated to 87%, requiring 2 L/min of supplemental oxygen to improve saturations with exertion. Recommendations Recommendations: 2 L/min of supplemental oxygen should be utilized with exertion.
== END | disposition home or self-care (01) ==
LOC: PSN 12:27
PROVIDERS: PCP Family Medicine; Referring Provider Nurse Practitioner Acute Care; Visit Provider Nurse Practitioner Acute Care
DX: J44.9 Chronic obstructive pulmonary disease, unspecified (principal)
CPT/HCPCS: 94618

== ENCOUNTER 2024-01-10 09:49 | Outpatient (CLI) | payer MEDICARE, OTHER, SELFPAY ==
[2024-01-10 10:02] VITALS: BP 149/79; PULSE 93; RESP 18; TEMP 36.3; O2SAT 91
[2024-01-10] MEDS: Benralizumab 30 MG/ML Syringe SC (10:03)
== END 2024-01-10 23:59 | disposition home or self-care (01) ==
LOC: MEDOUTP 09:49
PROVIDERS: PCP Family Medicine; Referring Provider Nurse Practitioner Acute Care; Visit Provider Nurse Practitioner Acute Care
DX: J45.50 Severe persistent asthma, uncomplicated (principal)
CPT/HCPCS: 96372; J0517

== ENCOUNTER 2024-03-06 09:43 | Outpatient (CLI) | payer MEDICARE, OTHER, SELFPAY ==
[2024-03-06 10:06] VITALS: BP 149/81; PULSE 79; RESP 16; TEMP 36.5; O2SAT 97; BMI 25.5
[2024-03-06] MEDS: Benralizumab 30 MG/ML Syringe SC (10:09)
== END 2024-03-06 23:59 | disposition home or self-care (01) ==
LOC: MEDOUTP 09:43
PROVIDERS: PCP Family Medicine; Referring Provider Nurse Practitioner Acute Care; Visit Provider Nurse Practitioner Acute Care
DX: J45.50 Severe persistent asthma, uncomplicated (principal)
CPT/HCPCS: 96372; J0517

== ENCOUNTER 2024-05-01 09:55 | Outpatient (CLI) | payer MEDICARE, OTHER, SELFPAY ==
[2024-05-01 10:31] VITALS: BP 131/82; PULSE 76; RESP 16; TEMP 36; O2SAT 93; BMI 25.5
[2024-05-01] MEDS: Benralizumab 30 MG/ML Syringe SC (10:35)
== END 2024-05-01 23:59 | disposition home or self-care (01) ==
LOC: MEDOUTP 09:56
PROVIDERS: PCP Family Medicine; Referring Provider Nurse Practitioner Acute Care; Visit Provider Nurse Practitioner Acute Care
DX: J45.50 Severe persistent asthma, uncomplicated (principal)
CPT/HCPCS: 96372; J0517

== ENCOUNTER 2024-05-30 18:22 | Emergency (ER) | payer MEDICARE, OTHER, SELFPAY ==
[2024-05-30] VITALS (7 sets, daily range): BP systolic 131–165; BP diastolic 78–98; PULSE 85–102; RESP 18–25; TEMP 36.1–37.3; O2SAT 91–93; BMI 25.4
--- NOTE | 2024-05-30 18:51 | EKG12_ITS ---
Test Reason : Blood Pressure : */* mmHG Vent. Rate : 108 BPM Atrial Rate : 108 BPM P-R Int : 140 ms QRS Dur : 124 ms QT Int : 322 ms P-R-T Axes : 85 -66 58 degrees QTcB Int : 431 ms Sinus tachycardia Right bundle branch block Left anterior fascicular block Bifascicular block Abnormal ECG Confirmed by Raphael Greco ([id number]), clinical editor DANIEL STAUFFER ([id number]) on 06/01/2024 6:57:34 AM Referred By: Confirmed By: Raphael Greco
--- NOTE | 2024-05-30 18:51 | RAD_ITS ---
EXAM: XR CHEST, 2 VIEWS CLINICAL INDICATION: chest pain TECHNIQUE: Frontal and lateral views of the chest. COMPARISON: September 21, 2019. Report of low-dose chest CT December 09, 2023, images were not provided. FINDINGS: LUNGS AND PLEURAL SPACES: The lungs are mildly hyperinflated with mildly increased interstitial markings in the lung bases and mildly prominent retrosternal clear space, also mildly increased lucency in the central upper lung ralph. Findings consistent with COPD. No confluent alveolar infiltrate, effusion or suspicious nodule. No pneumothorax. HEART: Unremarkable. Cardiac silhouette not enlarged. MEDIASTINUM: Central airways and mediastinal contour are unremarkable. BONES/JOINTS: Postoperative change of the right humeral head is again noted. No acute fracture. SOFT TISSUES: Unremarkable. UPPER ABDOMEN: Moderate stool in the splenic flexure of the colon is included. RAD/Chest PA and Lateral IMPRESSION: COPD. No convincing acute intrathoracic abnormality. Electronically Signed: Gemma Alexandra MD at 20:51 EST ,
--- NOTE | 2024-05-30 18:52 | EX.ED.DYSGE1 ---
HPI <YULIYA Grady - Last Filed: 05/30/24 22:03> History of Present Illness Chief Complaint: Chest Pain Narrative Narrative: Patient is a 79-year-old male with history of COPD, prostate cancer, quit smoking 4 years ago who presents to the [facility] for left-sided chest pain. Per the patient, he was hunting deer. Patient states he developed some left-sided chest pain, left hand cramping. Patient states he was then walking home, while he was walking at a stop because he is having ongoing pain. Pay states he feels more short of breath that he cannot take a complete breath and is here for evaluation. Patient's last stress test was in 2021. [facility] <YULIYA Grady - Last Filed: 05/30/24 22:03> [facility] Medical History (Updated 05/30/24 @ 22:03 by YULIYA Grady) COPD (chronic obstructive pulmonary disease) History of kidney stones Home Medications ?Medication ?Instructions ?Recorded ?Last Taken ?Type guaifenesin 1,200 mg tablet, 1,200 mg PO Q12H #60 tabs 07/13/20 Unknown Rx extended release 12 hr lisinopril 10 mg tablet 10 mg PO DAILY 02/13/21 Unknown History montelukast 10 mg tablet 10 mg PO QPM #90 tabs 10/30/22 Unknown Rx (Singulair) albuterol sulfate 2.5 mg/3 mL 2.5 mg (3 mL) inhalation Q4H PRN 01/02/23 Unknown Rx (0.083 %) solution for nebulization shortness of breath or wheezing #180 mL albuterol sulfate 90 mcg/actuation 2 puff inhalation Q4H PRN 10/29/23 Unknown Rx aerosol inhaler (Ventolin HFA) shortness of breath or wheezing #18 grams atorvastatin 40 mg tablet 20 mg PO QHS cholesterol 10/29/23 Unknown History budesonide 160 mcg-glycopyr 9 2 inh inhalation BID 10/29/23 Unknown History mcg-formot 4.8 mcg/actuation HFA inhaler (Breztri Aerosphere) ipratropium 0.5 mg-albuterol 3 mg 3 ml inhalation Q4H PRN PRN SOB 01/07/24 Unknown Rx (2.5 mg base)/3 mL nebulization &/OR WHEEZING #180 mL soln trazodone 50 mg tablet 50 mg PO QHS 01/07/24 Unknown History benralizumab 30 mg/mL subcutaneous 30 mg subcut Q8W 04/20/24 Unknown History syringe (Fasenra) Allergy/AdvReac Type Severity Reaction Status Date / Time No Known Allergies Allergy Verified 05/30/24 18:23 Family History (Reviewed 04/20/24 @ 11:36 by Joanna Davila OPHTHALMIC PATHOLOGIST, OPHTHALMIC PATHOLOGIST-C) Father Myocardial infarction Mother CVA (cerebral vascular accident) Myocardial infarction Emphysema of lung Surgical History History of repair of left rotator cuff History of total right knee replacement Social History (Reviewed 04/20/24 @ 11:36 by Joanna Davila OPHTHALMIC PATHOLOGIST, OPHTHALMIC PATHOLOGIST-C) Smoking Status: Former smoker quit date: 06/24/17 pack-years: 60 alcohol intake: never substance use type: does not use ROS <YULIYA Grady - Last Filed: 05/30/24 22:03> ROS ED ROS Narrative Constitutional: Negative for fever, chills, weight loss, weakness Eyes: Negative for vision loss, vision change, double vision ENT: Negative for any sore throat, ear pain, congestion Cardiovascular: Negative for any tightness, palpitations. Positive for chest pain Respiratory: Negative for any cough, sputum production, hemoptysis. Positive for dyspnea, dyspnea on exertion, orthopnea Gastrointestinal: Negative for any abdominal pain, nausea, vomiting, diarrhea, constipation, blood in stool, blood in vomit : Negative for any urinary frequency, dysuria, retention, blood in urine Muscle skeletal: Negative for any neck pain, back pain Neurological: Negative for any headache, syncope, dizziness Skin: Negative for any rashes, itching, abrasions, lacerations Psychiatric: Negative for any depression, anxiety, stress, suicidal ideation, homicidal ideation Hematologic: Negative for any excessive bruising, easy bleeding EXAM <YULIYA Grady - Last Filed: 05/30/24 22:03> Physical Exam Narrative Exam Narrative: Vital signs reviewed. Patient's heart rate 95, 91% on room air HEET: Head normocephalic atraumatic, TMs clear bilaterally. Posterior pharynx is clear, moist mucous membranes. Nares clear bilaterally. Neck: Supple with no lymphadenopathy or tenderness. No signs of meningismus. Cardiac: Regular rate and rhythm no murmurs gallops or rubs, equal peripheral pulses bilaterally. Respiratory: Lungs clear to auscultation bilaterally diminished lung sounds throughout the bases. No chest tenderness. Abdomen: Soft, nontender, nondistended. No abdominal bruit or pulsatile masses. No hepatosplenomegaly Extremities: No peripheral edema, no signs of gross trauma or deformity. Active full range of motion of all extremities. Neuro: Cranial nerves II through XII intact, no focal neurological deficits. Skin: Clean dry and intact with no rash, purpura, petechiae, vesicles or pustules. Backs/flank: No CVA tenderness, no midline spinal tenderness, no deformity. Psych: Normal mood and affect. No SI, HI or acute psychosis. Const Vital Signs: 05/30/24 18:23 05/30/24 18:51 05/30/24 19:19 Temperature 98.5 F Temperature Source Oral Pulse Rate 102 H 92 Respiratory Rate 18 23 H Blood Pressure 165/98 H Blood Pressure Mean 120 Pulse Ox 92 Oxygen Delivery Method Room Air Room Air 05/30/24 19:34 05/30/24 19:45 05/30/24 20:00 Temperature Temperature Source Pulse Rate 99 97 95 Respiratory Rate 25 H 24 H 22 H Blood Pressure 154/78 H 145/85 H Blood Pressure Mean 95 100 Pulse Ox 92 91 Oxygen Delivery Method 05/30/24 21:27 Temperature 99.1 F Temperature Source Oral Pulse Rate 99 Respiratory Rate 22 H Blood Pressure 134/81 H Blood Pressure Mean 98 Pulse Ox 93 Oxygen Delivery Method Room Air Positive well nourished and well developed General Appearance ED: well developed <Dr. Claude Padron, DO - Last Filed: 05/30/24 23:02> Physical Exam Const Vital Signs: 05/30/24 18:23 05/30/24 18:51 05/30/24 19:19 Temperature 98.5 F Temperature Source Oral Pulse Rate 102 H 92 Respiratory Rate 18 23 H Blood Pressure 165/98 H Blood Pressure Mean 120 Pulse Ox 92 Oxygen Delivery Method Room Air Room Air 05/30/24 19:34 05/30/24 19:45 05/30/24 20:00 Temperature Temperature Source Pulse Rate 99 97 95 Respiratory Rate 25 H 24 H 22 H Blood Pressure 154/78 H 145/85 H Blood Pressure Mean 95 100 Pulse Ox 92 91 Oxygen Delivery Method 05/30/24 21:27 Temperature 99.1 F Temperature Source Oral Pulse Rate 99 Respiratory Rate 22 H Blood Pressure 134/81 H Blood Pressure Mean 98 Pulse Ox 93 Oxygen Delivery Method Room Air [facility] <Kel AcostaYULIYA - Last Filed: 05/30/24 22:03> [facility] Lab Data Labs: Laboratory Results - last 24 hr 05/30/24 05/30/24 18:30 21:15 WBC 8.5 RBC 4.86 Hgb 14.2 Hct 44.3 MCV 91.2 MCH 29.2 MCHC 32.1 RDW Std Deviation 42.6 RDW Coeff of Ayala 12.7 Plt Count 224 MPV 10.4 Immature Gran % (Auto) 0.200 Neut % (Auto) 65.6 Lymph % (Auto) 23.6 Van [place]andt % (Auto) 10.4 H Eos % (Auto) 0.0 Baso % (Auto) 0.2 Absolute Neuts (auto) 5.6 Absolute Lymphs (auto) 2.01 Nucleated RBC % 0 D-Dimer Quant (PE/DVT) 1.21 H* Sodium 143 Potassium 3.7 Chloride 112 H Carbon Dioxide 25.0 Anion Gap 6 BUN 23 H Creatinine 1.09 Estim Creat Clear Calc 54.04 Est GFR (MDRD) Af Amer 84 Est GFR (MDRD) Non-Af 70 BUN/Creatinine Ratio 21.1 H Glucose 119 H Calcium 9.3 Troponin I High Sens 17 18 B-Natriuretic Peptide 36.4 Radiography Diagnostic Testing: Clinical Impression(s) from Imaging Studies Chest X-Ray 05/30/24 18:51 IMPRESSION: COPD. No convincing acute intrathoracic abnormality. Electronically Signed: Gemma Alexandra MD at 20:51 EST Reading Location ID and State: [facility] / [place] Tel , Service support , Chest CTA 05/30/24 19:48 IMPRESSION: 1. No specific acute abnormality. No PE or aortic aneurysm or dissection. 2. COPD. 3. Similar mild juxtapleural-juxtacardiac parenchymal thickening near the left heart margin, likely scarring. 4. Moderate-marked coronary artery calcifications and mild aortic valve region calcifications are again noted. 5. Bilateral adrenal enlargement. These are not as well seen on the prior low dose CT exams but they appear similar in size and configuration back to 2019. Electronically Signed: Gemma Alexandra MD at 22:30 EST , EKG Sinus tachycardia: Attestation: I personally reviewed and interpreted this EKG as follows: Interpretation: Sinus Rhythm Comments: Sinus tachycardia, rate 108 bpm, OK interval 140 ms, QRS duration 124 ms, no acute ST elevation, no acute infarct noted. Treatment and Re-Evaluation :: Differential diagnosis includes however is not limited to: ACS, NC, COPD exacerbation, reacquired pneumonia, COVID-19, influenza, PE Patient appears generally well, vital signs are stable, patient is nontoxic-appearing. Presenting to the emerged part with complaints of left-sided chest pain, left arm pain, increased shortness of breath. Patient was seen a full cardiac workup. Patient received a troponin x 2, patient will receive CBC, CBC, BMP, dimer. Chest x-ray will be completed. Patient does usually take breathing treatments, patient be given an albuterol as well as a DuoNeb here. EKG shows a sinus tachycardia with a right bundle branch block. Patient's laboratory values show a normal CBC, patient's chemistries were unremarkable, glucose 119. BNP was negative. Initial troponin was 17. Patient's D-dimer was elevated at 1.21, patient will receive a CTA of the chest. Patient's chest x-ray shows COPD however no acute process. Currently waiting for the CTA read as well as the troponin. Second troponin was negative. Patient CT scan of the chest showed chronic changes, no acute pulmonary embolus. At this time, we did reach out to cardiology, secondary to the negative high sensitive troponins, recommend shared decision making. I spoke with the patient, at this time, using shared decision making, I did offer admission however he would like to handle this outpatient. I do believe this is agreeable. He will be given follow-up with his PCP as well as cardiology. He is instructed return for any worsening symptoms. He again states that he did not have pain with exertion. Patient at this time is stable for discharge ED attending note: I evaluated the patient in conjunction with the SNEHA. I agree with his/her statements and above findings. I have personally performed a face to face assessment of the patient and have reviewed the SNEAH Note. I performed a substantive portion of the visit including all aspects of the following. I personally saw the patient performed chart review, physical exam, reviewed labs, imaging (if obtained), and formulated a treatment and management plan. This note was generated with [employer] dictation software. It may contain incorrect words, spelling, and punctuation that were not noted in review of the chart prior to signing. <Dr. Claude Padron, DO - Last Filed: 05/30/24 23:02> [facility] Lab Data Labs: Laboratory Results - last 24 hr 05/30/24 05/30/24 18:30 21:15 WBC 8.5 RBC 4.86 Hgb 14.2 Hct 44.3 MCV 91.2 MCH 29.2 MCHC 32.1 RDW Std Deviation 42.6 RDW Coeff of Ayala 12.7 Plt Count 224 MPV 10.4 Immature Gran % (Auto) 0.200 Neut % (Auto) 65.6 Lymph % (Auto) 23.6 Van Zandt % (Auto) 10.4 H Eos % (Auto) 0.0 Baso % (Auto) 0.2 Absolute Neuts (auto) 5.6 Absolute Lymphs (auto) 2.01 Nucleated RBC % 0 D-Dimer Quant (PE/DVT) 1.21 H* Sodium 143 Potassium 3.7 Chloride 112 H Carbon Dioxide 25.0 Anion Gap 6 BUN 23 H Creatinine 1.09 Estim Creat Clear Calc 54.04 Est GFR (MDRD) Af Amer 84 Est GFR (MDRD) Non-Af 70 BUN/Creatinine Ratio 21.1 H Glucose 119 H Calcium 9.3 Troponin I High Sens 17 18 B-Natriuretic Peptide 36.4 Radiography Diagnostic Testing: Clinical Impression(s) from Imaging Studies Chest X-Ray 05/30/24 18:51 IMPRESSION: COPD. No convincing acute intrathoracic abnormality. Electronically Signed: Gemma Alexandra MD at 20:51 EST , Chest CTA 05/30/24 19:48 IMPRESSION: 1. No specific acute abnormality. No PE or aortic aneurysm or dissection. 2. COPD. 3. Similar mild juxtapleural-juxtacardiac parenchymal thickening near the left heart margin, likely scarring. 4. Moderate-marked coronary artery calcifications and mild aortic valve region calcifications are again noted. 5. Bilateral adrenal enlargement. These are not as well seen on the prior low dose CT exams but they appear similar in size and configuration back to 2019. Electronically Signed: Gemma Alexandra MD at 22:30 EST , Treatment and Re-Evaluation :: Differential diagnosis includes however is not limited to: ACS, NC, COPD exacerbation, reacquired pneumonia, COVID-19, influenza, PE Patient appears generally well, vital signs are stable, patient is nontoxic-appearing. Presenting to the emerged part with complaints of left-sided chest pain, left arm pain, increased shortness of breath. Patient was seen a full cardiac workup. Patient received a troponin x 2, patient will receive CBC, CBC, BMP, dimer. Chest x-ray will be completed. Patient does usually take breathing treatments, patient be given an albuterol as well as a DuoNeb here. EKG shows a sinus tachycardia with a right bundle branch block. Patient's laboratory values show a normal CBC, patient's chemistries were unremarkable, glucose 119. BNP was negative. Initial troponin was 17. Patient's D-dimer was elevated at 1.21, patient will receive a CTA of the chest. Patient's chest x-ray shows COPD however no acute process. Currently waiting for the CTA read as well as the troponin. Second troponin was negative. Patient CT scan of the chest showed chronic changes, no acute pulmonary embolus. At this time, we did reach out to cardiology, secondary to the negative high sensitive troponins, recommend shared decision making. I spoke with the patient, at this time, using shared decision making, I did offer admission however he would like to handle this outpatient. I do believe this is agreeable. He will be given follow-up with his PCP as well as cardiology. He is instructed return for any worsening symptoms. He again states that he did not have pain with exertion. Patient at this time is stable for discharge ED attending note: I evaluated the patient in conjunction with the SNEHA. I agree with his/her statements and above findings. I have personally performed a face to face assessment of the patient and have reviewed the SNEHA Note. I performed a substantive portion of the visit including all aspects of the following. I personally saw the patient performed chart review, physical exam, reviewed labs, imaging (if obtained), and formulated a treatment and management plan. I have personally reviewed the patient's chest x-ray. Chest x-ray is unremarkable for pulmonary edema, pneumothorax, pneumonia or focal cardiopulmonary abnormality. EKG shows normal sinus rhythm rate of 87, left ax deviation, right bundle branch block, no STEMI High-sensitivity troponin is negative, no evidence of myocardial ischemia x 2 BNP elevated CTA chest shows no evidence of PE shows evidence of COPD no evidence of infection CBC with no leukocytosis, no anemia or thrombocytopenia BMP without evidence of significant electrolyte abnormalities, no anion gap, no acute kidney injury. Discussed with cardiology (Dr. Greco) who recommended admitting the patient if he had exertional pain. Discussed with the patient he did not have exertional pain. He noted pleuritic pain only. Discussed his elevated risk of elevated heart score. He understood his risk. Also noted was Saturday would not get a stress test until Saturday morning. With the knowledge that he may not get the stress test until Saturday he did not want to stay in the hospital. States he would like to go home and to follow-up with his primary doctor at the next billable appointment. Patient was alert and orient x 3 and a capacity to make his own medical decisions. This note was generated with [employer] dictation software. It may contain incorrect words, spelling, and punctuation that were not noted in review of the chart prior to signing. Discharge Plan Triage Chief Complaint: Chest Pain ED Midlevel Provider: Kel Acosta ED Provider: Claude Padron Dx/Rx/DC Orders Clinical Impression: COPD (chronic obstructive pulmonary disease), Chest pain Instructions: Asthma and COPD, ED Chest Pain, Uncertain Cause Prescriptions: No Action guaifenesin 1,200 mg tablet extended release 12hr 1,200 mg PO Q12H Qty: 60 6RF montelukast [Singulair] 10 mg tablet 10 mg PO QPM Qty: 90 3RF Breztri Aerosphere 160-9-4.8 mcg/actuation HFA aerosol inhaler 2 inh inhalation BID albuterol sulfate [Ventolin HFA] 90 mcg/actuation HFA aerosol inhaler 2 puff inhalation Q4H PRN (Reason: shortness of breath or wheezing) Qty: 18 6RF trazodone 50 mg tablet 50 mg PO QHS ipratropium-albuterol 0.5 mg-3 mg(2.5 mg base)/3 mL solution for nebulization 3 ml inhalation Q4H PRN PRN (Reason: SOB &/OR WHEEZING) Qty: 180 6RF Fasenra 30 mg/mL syringe 30 mg SC Q8W atorvastatin 40 mg tablet 20 mg PO QHS lisinopril 10 mg Tablet 10 mg PO DAILY albuterol sulfate 2.5 mg /3 mL (0.083 %) solution for nebulization 2.5 mg INHALATION Q4H PRN (Reason: shortness of breath or wheezing) Qty: 180 6RF Primary Care Provider: Finn Hahn Referrals: Raphael Greco MD [Med Staff - Active Staff] - Finn Hahn MD [Primary Care Provider] - Activity Restrictions/Additional Instructions: Please follow-up outpatient, if you do have worsening chest pain, please return. Print Language: Thai Disposition Disposition: Home, Self Care Discharge Date/Time: 05/30/24 22:56
[2024-05-30 19:05] LABS: Absolute Lymphocyte Count 2.01 X10^3/uL (0.83-4.51); Absolute Neutrophil Count 5.6 X10^3/uL (2.0-7.7); Basophil# 0.02 X10^3/uL; Basophil% 0.2 % (0-1); Hematocrit 44.3 % (40-54); Hemoglobin 14.2 g/dL (13.0-16.5); Lymphocyte # 2.01 X10^3/ul (0.83-4.51); Lymphocyte % 23.6 % (19-41); Mean Corp Hgb Conc 32.1 g/dL (32-36); Mean Corpuscular Hgb 29.2 pg (27.0-32.0); Mean Corpuscular Volume 91.2 fL (80-94); Mean Platelet Vol. 10.4 fl (6.2-12.0); Monocyte# 0.89 X10^3/uL; Monocyte% 10.4 % (0-10); NRBC Flagged by Analyzer 0 % (0-5); Neutrophil # 5.59 X10^3/uL (2.7-7.7); Neutrophil % 65.6 % (47-70); Platelet Count 224 K/mm3 (150-450); RBC Distribution Width CV 12.7 % (11.6-14.6); RBC Distribution Width SD 42.6 fl (35.1-43.9); Red Blood Count 4.86 M/mm3 (4.6-6.2); White Blood Count 8.5 K/mm3 (4.4-11.0)
[2024-05-30] MEDS: Ipratropium/Albuterol Sulfate 3 ML AMPUL.NEB INHALATION (19:17)
[2024-05-30] MEDS: Albuterol 2.5 MG/3 ML VIAL.NEB. INHALATION (19:17)
[2024-05-30 19:23] LABS: Anion Gap 6 (5-15); BUN 23 mg/dL (7-18); BUN/Creat Ratio 21.1 RATIO (10-20); Calcium,Total 9.3 mg/dL (8.5-10.1); Chloride 112 mmol/L (98-107); Creatinine, Serum 1.09 mg/dL (0.70-1.30); EST Glomerular Filtration Rate 70 mL/min (>60); Est Glom Filt Rate - Afr Amer 84 mL/min (>60); Estimated Creatinine Clearance 54.04 ml/min; Glucose 119 mg/dL (74-106); Potassium 3.7 mmol/L (3.5-5.1); Sodium Level 143 mmol/L (136-145); Troponin-I HS (w/2H Reflex) 17 pg/mL (3.0-78.0)
[2024-05-30 19:38] LABS: BNP,B-Type NATRIURETIC PEPTIDE 36.4 pg/mL (0-100)
[2024-05-30 19:48] LABS: D-Dimer Quantitative (DVT/PE) 1.21 FEU/ug/m (0.27-0.49)
--- NOTE | 2024-05-30 19:48 | CT_ITS ---
EXAM: CT ANGIOGRAPHY CHEST WITHOUT AND WITH INTRAVENOUS CONTRAST CLINICAL INDICATION: shortness of breath TECHNIQUE: Helically acquired angiography images were obtained of the chest without and with intravenous contrast. This CT exam was performed using one or more of the following dose reduction techniques: automated exposure control, adjustment of the mA and/or kV according to patient size, and/or use of iterative reconstruction technique. MIP reconstructed images were created and reviewed. RADIATION DOSE: CTDIvol = 13.83 mGy, DLP = 433.42 mGy-cmContrast: IV 100mL [id number] COMPARISON: December 09, 2023, November 27, 2019 low-dose CT. FINDINGS: PULMONARY ARTERIES: Unremarkable. Normal in caliber. No evidence of pulmonary embolism. AORTA: Mild atherosclerotic calcification of the aorta and subclavian arteries. No aneurysm or dissection. GREAT VESSELS OF AORTIC ARCH: Unremarkable. Normal in caliber. No evidence of dissection. LUNGS AND PLEURAL SPACES: Emphysematous changes in the upper-mid lung ralph. No suspicious nodules. No pleural effusion or thickening. No pneumothorax. HEART: There is similar appearance of mild juxtapleural and juxtacardiac consolidation adjacent to the lower left major fissure and left heart margin. Moderate-marked coronary artery calcifications. No intracardiac filling defect. Mild left ventricular wall and septal hypertrophy. Similar appearance of mild fluid anterior to the heart compared to 2020. Mild calcifications of aortic valve leaflets are again noted. No pericardial effusion. MEDIASTINUM: Unremarkable. No mediastinal or hilar adenopathy. Esophagus is unremarkable. No hiatal hernia. THYROID: Unremarkable. No thyroid lesions. BONES/JOINTS: Unremarkable. No suspicious lytic or blastic abnormality. UPPER ABDOMEN: Not fully included. There are bilateral adrenal nodules. These were not as well seen on low dose CT but are similar size and configuration compared to 2020. The gallbladder is not fully included but the gallbladder neck most of the pancreas are included and appear unremarkable. Proximal pancreas and inferior liver and kidneys are not fully included. OTHER FINDINGS: Degenerative spine changes with multilevel vacuum disc. CT/CTA Chest W/WO Contrast IMPRESSION: 1. No specific acute abnormality. No PE or aortic aneurysm or dissection. 2. COPD. 3. Similar mild juxtapleural-juxtacardiac parenchymal thickening near the left heart margin, likely scarring. 4. Moderate-marked coronary artery calcifications and mild aortic valve region calcifications are again noted. 5. Bilateral adrenal enlargement. These are not as well seen on the prior low dose CT exams but they appear similar in size and configuration back to 2019. Electronically Signed: Gemma Alexandra MD at 22:30 EST ,
[2024-05-30 21:02] LABS: Reflex Troponin-HS? (from REC) Y
--- NOTE | 2024-05-30 21:28 | EKG12_ITS ---
Test Reason : REPEAT CP Blood Pressure : */* mmHG Vent. Rate : 87 BPM Atrial Rate : 87 BPM P-R Int : 136 ms QRS Dur : 124 ms QT Int : 360 ms P-R-T Axes : 78 -49 46 degrees QTcB Int : 433 ms Normal sinus rhythm with sinus arrhythmia Indeterminate axis Right bundle branch block Abnormal ECG Confirmed by JONH UREÑA, DOREEN ([id number]), newspaper managing editor CAROLYN POSEY ([id number]) on 06/02/2024 6:09:16 AM Referred By: RUDY Confirmed By: DOREEN BORJA MD
[2024-05-30 21:44] LABS: Troponin-I HS 18 pg/mL (3.0-78.0)
== END 2024-05-30 22:56 | disposition home or self-care (01) ==
PROVIDERS: Nurse Practitioner; Emergency Provider Emergency Medicine; PCP Family Medicine; Visit Provider Emergency Medicine
DX: J44.9 Chronic obstructive pulmonary disease, unspecified (principal); R07.9 Chest pain, unspecified; R06.02 Shortness of breath; Z87.891 Personal history of nicotine dependence
CPT/HCPCS: 71046; 71275; 80048; 83880; 84484; 85025; 85379; 93005; 94640; 99284; Q9967; A4216

== ENCOUNTER 2024-06-26 09:54 | Outpatient (CLI) | payer MEDICARE, OTHER, SELFPAY ==
[2024-06-26 10:11] VITALS: BP 133/81; PULSE 73; RESP 18; TEMP 36.9; O2SAT 94; BMI 25.5
[2024-06-26] MEDS: Benralizumab 30 MG/ML Syringe SC (10:16)
== END 2024-06-26 23:59 | disposition home or self-care (01) ==
LOC: MEDOUTP 09:55
PROVIDERS: PCP Family Medicine; Referring Provider Nurse Practitioner Acute Care; Visit Provider Nurse Practitioner Acute Care
DX: J45.50 Severe persistent asthma, uncomplicated (principal)
CPT/HCPCS: 96372; J0517

== ENCOUNTER 2024-08-21 09:46 | Outpatient (CLI) | payer MEDICARE, OTHER, SELFPAY ==
[2024-08-21 09:54] VITALS: BP 155/83; PULSE 92; RESP 16; TEMP 36.1; O2SAT 94; BMI 26.6
[2024-08-21] MEDS: Benralizumab 30 MG/ML Syringe SC (09:57)
== END 2024-08-21 23:59 | disposition home or self-care (01) ==
LOC: MEDOUTP 09:47
PROVIDERS: PCP Family Medicine; Referring Provider Nurse Practitioner Acute Care; Visit Provider Nurse Practitioner Acute Care
DX: J45.50 Severe persistent asthma, uncomplicated (principal)
CPT/HCPCS: 96372; J0517

== ENCOUNTER → 2024-09-29 | Outpatient (CLI) | payer MEDICARE, OTHER, SELFPAY | END | disposition home or self-care (01) | LOC: SL 10:06 | PROVIDERS: PCP Family Medicine; Referring Provider Nurse Practitioner Acute Care; Visit Provider Nurse Practitioner Acute Care | DX: J96.11 Chronic respiratory failure with hypoxia (principal) | CPT/HCPCS: 94762 ==

== ENCOUNTER 2024-10-16 08:54 | Outpatient (CLI) | payer MEDICARE, OTHER, SELFPAY ==
[2024-10-16 09:09] VITALS: BP 134/67; PULSE 86; RESP 16; TEMP 36.4; O2SAT 93; BMI 26.6
[2024-10-16] MEDS: Benralizumab 30 MG/ML Syringe SC (09:23)
== END 2024-10-16 23:59 | disposition home or self-care (01) ==
PROVIDERS: PCP Family Medicine; Referring Provider Nurse Practitioner Acute Care; Visit Provider Nurse Practitioner Acute Care
DX: J45.50 Severe persistent asthma, uncomplicated (principal)
CPT/HCPCS: 96372; J0517

== ENCOUNTER 2024-12-11 09:55 | Outpatient (CLI) | payer MEDICARE, OTHER, SELFPAY ==
[2024-12-11 10:02] VITALS: BP 137/68; PULSE 98; RESP 16; TEMP 35.8; O2SAT 95; BMI 26.4
[2024-12-11] MEDS: Benralizumab 30 MG/ML Syringe SC (10:08)
== END 2024-12-11 23:59 | disposition home or self-care (01) ==
LOC: MEDOUTP 09:55
PROVIDERS: PCP Family Medicine; Referring Provider Nurse Practitioner Acute Care; Visit Provider Nurse Practitioner Acute Care
DX: J45.50 Severe persistent asthma, uncomplicated (principal)
CPT/HCPCS: 96372; J0517

== ENCOUNTER → 2024-12-16 | Outpatient (CLI) | payer MEDICARE, OTHER, SELFPAY ==
--- NOTE | 2024-12-16 10:38 | CT_ITS ---
PROCEDURE: LOW DOSE CT LUNG SCREENING 12/16/2024 REASON FOR EXAM: SMOKER TECHNIQUE: LOW DOSE CT LUNG SCREENING Coronal and Sagittal reconstruction series were provided. One or more dose reduction techniques were used (e.g., Automated exposure control, adjustment of the mA and/or kV according to patient size, use of iterative reconstruction technique). REFERENCE LINK: [email or web address] Lung-RADS RADIATION DOSE SUMMARY: CTDlvol: 3.02 mGy DLP: 112.87 mGycm COMPARISON: Prior study dated December 09, 2023. FINDINGS: PULMONARY NODULES: (Only nodules >3mm are reported) Nodules described below are on series 1 unless otherwise specified. Pulmonary Nodules: None. No suspicious nodules are present. Hardware:None Lymph Nodes:Small benign-appearing mediastinal lymph nodes. Heart and Vasculature:The heart is nonenlarged. Coronary Artery Calcifications: Present Lungs and Airways: Mild emphysematous changes are present. Stable mild linear scarring in the anterior right upper lobe and lingular segment of the left upper lobe. Pleura:No pleural effusion. Upper Abdomen:Unremarkable Bones:Degenerative changes of the thoracic spine. CT/Low Dose CT Lung Screening IMPRESSION: Stable examination Coronary artery calcification (CAC) is is present Lung-RADS Category: 2 BENIGN (BASED ON IMAGING FEATURES OR INDOLENT BEHAVIOR). RECOMMEND 12-MONTH SCREENING LDCT. Other Significant Findings: Reading Location: [id number]
== END | disposition home or self-care (01) ==
LOC: CT 10:37
PROVIDERS: PCP Family Medicine; Referring Provider Nurse Practitioner Acute Care; Visit Provider Nurse Practitioner Acute Care
DX: Z12.2 Encounter for screening for malignant neoplasm of respiratory organs (principal); F17.210 Nicotine dependence, cigarettes, uncomplicated
CPT/HCPCS: 71271

== ENCOUNTER 2025-02-05 11:58 | Outpatient (CLI) | payer MEDICARE, OTHER, SELFPAY ==
[2025-02-05 12:19] VITALS: BP 133/81; PULSE 67; RESP 14; TEMP 36.4; O2SAT 94
== END 2025-02-05 23:59 | disposition home or self-care (01) ==
LOC: MEDOUTP 11:59
PROVIDERS: PCP Family Medicine; Referring Provider Nurse Practitioner Acute Care; Visit Provider Nurse Practitioner Acute Care
DX: J45.50 Severe persistent asthma, uncomplicated (principal)
CPT/HCPCS: 96372; J0517

== ENCOUNTER 2025-04-02 09:53 | Outpatient (CLI) | payer MEDICARE, OTHER, SELFPAY ==
[2025-04-02 10:09] VITALS: BP 150/79; PULSE 84; RESP 16; TEMP 36.6; O2SAT 94
== END 2025-04-02 23:59 | disposition home or self-care (01) ==
LOC: MEDOUTP 09:54
PROVIDERS: PCP Family Medicine; Referring Provider Nurse Practitioner Acute Care; Visit Provider Nurse Practitioner Acute Care
DX: J45.50 Severe persistent asthma, uncomplicated (principal)
CPT/HCPCS: 96372; J0517

== ENCOUNTER 2025-05-28 09:49 | Outpatient (CLI) | payer MEDICARE, OTHER, SELFPAY ==
[2025-05-28 09:58] VITALS: BP 158/75; PULSE 89; RESP 16; TEMP 35.9; O2SAT 94
== END 2025-05-28 23:59 | disposition home or self-care (01) ==
LOC: MEDOUTP 09:49
PROVIDERS: PCP Family Medicine; Referring Provider Nurse Practitioner Acute Care; Visit Provider Nurse Practitioner Acute Care
DX: J45.50 Severe persistent asthma, uncomplicated (principal)
CPT/HCPCS: 96372; J0517